=== PATIENT | female | born 1945 | race Caucasian/White ===

== ENCOUNTER 2016-07-10 06:22 | Outpatient (CLI) | payer OTHER, MEDICARE | END 2016-07-10 06:23 | disposition home or self-care (01) | DX: I48.0 Paroxysmal atrial fibrillation (principal) ==

== ENCOUNTER 2016-08-07 10:28 | Outpatient (CLI) | payer OTHER, MEDICARE | END 2016-08-07 10:29 | disposition home or self-care (01) | DX: I48.0 Paroxysmal atrial fibrillation (principal) ==

== ENCOUNTER 2016-08-07 14:08 | Outpatient (CLI) | payer OTHER, MEDICARE | END 2016-08-07 14:09 | disposition home or self-care (01) | DX: J18.9 Pneumonia, unspecified organism (principal) ==

== ENCOUNTER 2016-09-10 06:31 | Outpatient (CLI) | payer OTHER, MEDICARE | END 2016-09-10 06:32 | disposition home or self-care (01) | DX: E78.5 Hyperlipidemia, unspecified (principal); J44.9 Chronic obstructive pulmonary disease, unspecified ==

== ENCOUNTER 2016-09-19 09:38 | Outpatient (CLI) | payer OTHER, MEDICARE | END 2016-09-19 09:39 | disposition home or self-care (01) | DX: I48.0 Paroxysmal atrial fibrillation (principal) ==

== ENCOUNTER 2016-10-31 06:20 | Outpatient (CLI) | payer OTHER, MEDICARE | END 2016-10-31 06:21 | disposition home or self-care (01) | LOC: LAB 06:20 | PROVIDERS: ATTEND Pharmacist | DX: I48.0 Paroxysmal atrial fibrillation (principal) | CPT/HCPCS: 85610 ==

== ENCOUNTER 2016-11-14 08:00 | Outpatient (CLI) | payer OTHER, MEDICARE | END 2016-11-14 08:01 | disposition home or self-care (01) | LOC: LAB 08:00 | PROVIDERS: ATTEND Pharmacist | DX: I48.0 Paroxysmal atrial fibrillation (principal) | CPT/HCPCS: 85610 ==

== ENCOUNTER 2016-12-12 08:03 | Outpatient (CLI) | payer OTHER, MEDICARE | END 2016-12-12 08:04 | disposition home or self-care (01) | LOC: LAB 08:03 | PROVIDERS: ATTEND Pharmacist | DX: I48.0 Paroxysmal atrial fibrillation (principal) | CPT/HCPCS: 85610 ==

== ENCOUNTER 2017-01-14 09:20 | Outpatient (CLI) | payer OTHER, MEDICARE | END 2017-01-14 09:21 | disposition home or self-care (01) | LOC: LAB 09:20 | PROVIDERS: ATTEND Pharmacist | DX: I48.0 Paroxysmal atrial fibrillation (principal) | CPT/HCPCS: 85610 ==

== ENCOUNTER 2017-02-11 15:57 | Outpatient (CLI) | payer OTHER, MEDICARE | END 2017-02-11 15:58 | disposition home or self-care (01) | LOC: LAB 15:57 | PROVIDERS: ATTEND Pharmacist | DX: I48.0 Paroxysmal atrial fibrillation (principal) | CPT/HCPCS: 85610 ==

== ENCOUNTER 2017-03-11 07:09 | Outpatient (CLI) | payer OTHER, MEDICARE | END 2017-03-11 07:10 | disposition home or self-care (01) | LOC: LAB 07:09 | PROVIDERS: ATTEND Pharmacist | DX: I48.0 Paroxysmal atrial fibrillation (principal) | CPT/HCPCS: 36415; 85610 ==

== ENCOUNTER 2017-04-08 07:50 | Outpatient (CLI) | payer OTHER, MEDICARE | END 2017-04-08 07:51 | disposition home or self-care (01) | LOC: LAB 07:50 | PROVIDERS: ATTEND Pharmacist | DX: I48.0 Paroxysmal atrial fibrillation (principal) | CPT/HCPCS: 85610 ==

== ENCOUNTER 2017-05-06 06:21 | Outpatient (CLI) | payer OTHER, MEDICARE | END 2017-05-06 06:22 | disposition home or self-care (01) | LOC: LAB 06:21 | PROVIDERS: ATTEND Pharmacist | DX: I48.0 Paroxysmal atrial fibrillation (principal) | CPT/HCPCS: 85610 ==

== ENCOUNTER 2017-06-05 07:15 | Outpatient (CLI) | payer OTHER, MEDICARE | END 2017-06-05 07:16 | disposition home or self-care (01) | LOC: LAB 07:15 | PROVIDERS: ATTEND Pharmacist | DX: I48.0 Paroxysmal atrial fibrillation (principal) | CPT/HCPCS: 85610 ==

== ENCOUNTER 2017-06-26 06:32 | Outpatient (CLI) | payer OTHER, MEDICARE | END 2017-06-26 06:33 | disposition home or self-care (01) | LOC: LAB 06:32 | PROVIDERS: ATTEND Pharmacist | DX: I48.0 Paroxysmal atrial fibrillation (principal) | CPT/HCPCS: 85610 ==

== ENCOUNTER 2017-07-24 06:48 | Outpatient (CLI) | payer OTHER, MEDICARE | END 2017-07-24 06:49 | disposition home or self-care (01) | LOC: LAB 06:48 | PROVIDERS: ATTEND Pharmacist | DX: I48.0 Paroxysmal atrial fibrillation (principal) | CPT/HCPCS: 36415; 85610 ==

== ENCOUNTER 2017-08-21 06:27 | Outpatient (CLI) | payer OTHER, MEDICARE | END 2017-08-21 06:28 | disposition home or self-care (01) | LOC: LAB 06:27 | PROVIDERS: ATTEND Pharmacist | DX: I48.0 Paroxysmal atrial fibrillation (principal) | CPT/HCPCS: 85610 ==

== ENCOUNTER 2017-09-08 06:28 | Outpatient (CLI) | payer OTHER, MEDICARE ==
[2017-09-08 06:56] LABS: BASOPHILS # (AUTO) 0.1 10^3/uL (0.0-0.1); BASOPHILS % (AUTO) 1.1 %; EOSINOPHILS # (AUTO) 0.3 10^3/uL (0.0-0.7); EOSINOPHILS % (AUTO) 6.7 %; HGB - HEMOGLOBIN 12.1 g/dL (12.0-16.0); LYMPHOCYTES # (AUTO) 1.2 10^3/uL (1.5-3.5); LYMPHOCYTES % (AUTO) 23.5 %; MEAN CORPUSCULAR HEMOGLOBIN 26.3 pg (27.0-31.0); MEAN CORPUSCULAR HGB CONC 31.5 g/dL (32.0-36.0); MEAN CORPUSCULAR VOLUME 83.3 fL (81.0-99.0); MEAN PLATELET VOLUME 8.4 fL (7.9-10.8); MONOCYTES # (AUTO) 0.5 10^3/uL (0.0-1.0); MONOCYTES % (AUTO) 10.6 %; NEUTROPHILS # (AUTO) 2.9 10^3/uL (1.5-6.6); NEUTROPHILS % (AUTO) 58.1 %; PLT - PLATELET COUNT 204 10^3/uL (130-450); WHITE BLOOD COUNT 4.9 x10^3/uL (4.8-10.8)
[2017-09-08 07:09] LABS: ALBUMIN 4.5 g/dL (3.2-5.5); ALBUMIN/GLOBULIN RATIO 1.7 (1.0-2.2); ALKALINE PHOSPHATASE 70 IU/L (42-121); ALT ALANINE AMINOTRANSFERASE 19 IU/L (10-60); AST ASPARTATE AMINOTRANSFERASE 21 IU/L (10-42); BILIRUBIN,TOTAL 0.7 mg/dL (0.2-1.0); BUN - BLOOD UREA NITROGEN 16 mg/dL (6-20); CALCIUM 8.9 mg/dL (8.5-10.3); CARBON DIOXIDE - CO2 24 mmol/L (21-32); CHLORIDE 105 mmol/L (101-111); CHOL/HDL RATIO 2.8 (<4.4); CHOLESTEROL 127 mg/dL; CREATININE 0.6 mg/dL (0.4-1.0); GFR - MDRD 98 (>89); GLUCOSE 101 mg/dL (70-100); HDL CHOLESTEROL 46 mg/dL; LDL CHOLESTEROL,CALCULATED 64 mg/dL; LDL/HDL RATIO 1.4 (<4.4); SODIUM 138 mmol/L (135-145); TOTAL PROTEIN 7.1 g/dL (6.7-8.2); VLDL CHOLESTEROL 17 mg/dL
== END 2017-09-08 06:29 | disposition home or self-care (01) ==
LOC: LAB 06:28
PROVIDERS: ATTEND Physician Assistant Medical
DX: E78.5 Hyperlipidemia, unspecified (principal); J44.9 Chronic obstructive pulmonary disease, unspecified
CPT/HCPCS: 36415; 80053; 80061; 83721; 85025

== ENCOUNTER 2017-09-18 08:00 | Outpatient (CLI) | payer OTHER, MEDICARE | END 2017-09-18 08:01 | disposition home or self-care (01) | LOC: LAB 08:00 | PROVIDERS: ATTEND Pharmacist | DX: I48.0 Paroxysmal atrial fibrillation (principal) | CPT/HCPCS: 36415; 85610 ==

== ENCOUNTER 2017-10-16 06:28 | Outpatient (CLI) | payer OTHER, MEDICARE | END 2017-10-16 06:29 | disposition home or self-care (01) | LOC: LAB 06:28 | PROVIDERS: ATTEND Pharmacist | DX: I48.0 Paroxysmal atrial fibrillation (principal) | CPT/HCPCS: 85610 ==

== ENCOUNTER 2017-11-13 06:23 | Outpatient (CLI) | payer OTHER, MEDICARE | END 2017-11-13 06:24 | disposition home or self-care (01) | LOC: LAB 06:23 | PROVIDERS: ATTEND Pharmacist | DX: I48.0 Paroxysmal atrial fibrillation (principal) | CPT/HCPCS: 85610 ==

== ENCOUNTER 2018-02-04 06:14 | Outpatient (CLI) | payer OTHER, MEDICARE | END 2018-02-04 06:15 | disposition home or self-care (01) | LOC: LAB 06:14 | PROVIDERS: ATTEND Pharmacist | DX: I48.0 Paroxysmal atrial fibrillation (principal) | CPT/HCPCS: 85610 ==

== ENCOUNTER 2018-03-04 08:00 | Outpatient (CLI) | payer OTHER, MEDICARE | END 2018-03-04 08:01 | disposition home or self-care (01) | LOC: LAB 08:00 | PROVIDERS: ATTEND Pharmacist | DX: I48.0 Paroxysmal atrial fibrillation (principal) | CPT/HCPCS: 85610 ==

== ENCOUNTER 2018-04-13 10:32 | Outpatient (CLI) | payer MEDICARE, OTHER ==
--- NOTE | 2018-04-13 15:08 | DEXA Report ---
Reason: OSTEOPOROSIS NOS Procedure Date: 04/13/2018 Accession Number: [id number] / [id number] Procedure: DEX - Dexa Spine and/or Hip CPT Code: FULL RESULT: EXAM: Dexa Spine and/or Hip DATE: 04/13/2018 10:57 AM CLINICAL HISTORY: OSTEOPOROSIS NOS TECHNIQUE: Dual energy x-ray absorptiometry (DXA) was performed on a [employer] System. Regions measured are the AP Spine, femoral neck, and if needed forearm. COMPARISON: 12/18/2015. In accordance with the International Society for Clinical Densitometry (ISCD) guidelines, data from previous exams may be reanalyzed using current recommendations and techniques. This is done to allow a more accurate basis for comparison with the current study. FINDINGS: The data for the lumbar spine is as follows: BMD (g/cm/cm) T-SCORE Z-SCORE REGION L1 0.942 -1.6 -0.2 L2 0.958 -2.0 -0.6 L3 0.938 -2.2 -0.8 L4 0.810 -3.2 -1.9 TOTAL 0.906 -2.3 -0.9 NOTE: All evaluable vertebrae are used for classification The data for the hip is as follows: BMD (g/cm/cm) T-SCORE Z-SCORE REGION Neck 0.651 -2.8 -1.1 TOTAL 0.654 -2.8 -1.4 NOTE: The femoral neck or total proximal femur, whichever is lowest, is used for classification. DXA RESULTS SUMMARY: Spine SCAN DATE AGE BMD CHANGE VS CHANGE VS PREVIOUS PREVIOUS % 04[age]13/2018 [age] 0.906 -0.029* -3.1* 12/18/2015 [age] 0[age]935 * Denotes significant change at the 95% confidence level. Denotes dissimilar scan types or analysis methods. DXA RESULTS SUMMARY: Hip SCAN DATE [age]GE BMD CHANGE VS CHANGE VS PREVIOUS PREVIOUS % 04[birth year]13/2018 [age] 0.654 -0.007 -1.1 12/18/2015 [age] 0.661 * Denotes significant change at the 95% confidence level. Denotes dissimilar scan types or analysis methods. IMPRESSION: THE WHO CLASSIFICATION BASED ON THE INTERNATIONAL REFERENCE STANDARD IS OSTEOPOROSIS. THE FRACTURE RISK IS HIGH. RECOMMENDATION: Patients with diagnosis of osteoporosis or osteopenia should have regular bone mineral density assessment. For those eligible for Medicare, routine testing is allowed once every 2 years. Testing frequency can be increased for patients who have rapidly progressing disease or for those who are receiving medical therapy to restore bone mass. COMMENT: World Health Organization (WHO) definitions for osteoporosis and osteopenia: NORMAL BMD: T-score at -1.0 or higher, fracture risk is low OSTEOPENIA BMD: T-score between -1.0 and -2.5, fracture risk is increased. OSTEOPOROSIS BMD: T-score at -2.5 or lower, fracture risk is high. National Osteoporosis Foundation recommends: 1. Obtain adequate dietary calcium (at least 1200 mg per day) and vitamin D (400-800 international units per day). 2. Participate, as appropriate, in regular weightbearing and muscle-strengthening exercise. 3. Avoid tobacco use and reduce alcohol and caffeine intake. 4. For more detailed information see the website at www.NOF.org.
== END 2018-04-13 10:33 | disposition home or self-care (01) ==
LOC: DI 10:32
PROVIDERS: ATTEND Physician Assistant Medical
DX: M81.0 Age-related osteoporosis without current pathological fracture (principal)
CPT/HCPCS: 77080

== ENCOUNTER 2018-04-15 07:11 | Outpatient (CLI) | payer MEDICARE, OTHER ==
[2018-04-15 07:51] LABS: INR 2.9 (0.8-1.2); PT - PROTHROMBIN TIME 32.6 secs (9.9-12.6)
== END 2018-04-15 07:12 | disposition home or self-care (01) ==
LOC: LAB 07:11
PROVIDERS: ATTEND Pharmacist
DX: I48.0 Paroxysmal atrial fibrillation (principal)
CPT/HCPCS: 36415; 85610

== ENCOUNTER 2018-04-16 08:02 | Outpatient (CLI) | payer MEDICARE, OTHER ==
--- NOTE | 2018-04-17 09:06 | Mammography Report ---
Reason: ANNUAL SCREENING Procedure Date: 04/16/2018 Accession Number: [id number] / [id number] Procedure: DANITZA - Screening Mammo w/Umair CPT Code: FULL RESULT: EXAM: Screening Mammo w/Umair DATE: 04/16/2018 8:52 AM CLINICAL HISTORY: Routine screening. No personal or family history of breast cancer. TECHNIQUE: Bilateral CC and MLO views were obtained. COMPARISON: 12/18/2015 through 06/01/2012 FINDINGS: The breasts demonstrate scattered fibroglandular densities bilaterally. There are multiple stable similar-appearing round and oval benign-appearing masses bilaterally. There are no suspicious masses, calcifications or areas of distortion. IMPRESSION: Benign findings RECOMMENDATION: Routine annual screening unless otherwise clinically indicated. BI-RADS CATEGORY 2: Benign findings STANDARD QUALIFYING STATEMENTS: 1. This examination was not reviewed with the aid of Computer-Aided Detection (CAD). 2. A negative or benign imaging report should not preclude biopsy if clinically suspicious findings are present. 3. Dense breasts may obscure an underlying neoplasm. 4. This examination was reviewed with the aid of 3D breast imaging (tomosynthesis).
== END 2018-04-16 08:03 | disposition home or self-care (01) ==
LOC: DI 08:02
DX: Z12.31 Encounter for screening mammogram for malignant neoplasm of breast (principal)
CPT/HCPCS: 77063; 77067

== ENCOUNTER 2018-04-28 12:44 | Outpatient (CLI) | payer MEDICARE, OTHER ==
--- NOTE | 2018-04-28 15:28 | XRAY Report ---
Reason: OSTEOPOROSIS Procedure Date: 04/28/2018 Accession Number: [id number] / [id number] Procedure: XR - Thoracic Spine 2 View CPT Code: FULL RESULT: EXAM: THORACIC SPINE RADIOGRAPHY EXAM DATE: 04/28/2018 01:12 PM. CLINICAL HISTORY: Osteoporosis. COMPARISON: CHEST 2 VIEW PA/LAT 08/07/2016 2:11 PM. TECHNIQUE: 2 views. FINDINGS: Alignment: Kyphosis without overt single level vertebral body height loss. Mild levoconvex thoracic scoliosis followed by dextroconvex compensatory lumbar scoliosis which is partially imaged. Bones: No fractures or bone lesions. Disks: Normal. Disk heights are maintained. Soft Tissues: Note is made of a pacemaker in unchanged position. The visualized lungs and cardiomediastinal silhouette are normal with the exception of aortic arch calcifications. IMPRESSION: Kyphosis and scoliosis, likely degenerative in nature. RADIA
--- NOTE | 2018-04-28 15:28 | XRAY Report ---
Reason: OSTEOPOROSIS Procedure Date: 04/28/2018 Accession Number: [id number] / [id number] Procedure: XR - Lumbar Spine 2 View CPT Code: FULL RESULT: EXAM: LUMBOSACRAL SPINE RADIOGRAPHY EXAM DATE: 04/28/2018 01:12 PM. CLINICAL HISTORY: Osteoporosis. COMPARISONS: None. TECHNIQUE: 3 views. FINDINGS: Alignment: Mild levoconvex scoliosis. Bones: Five [id number] lumbar vertebral bodies are present. No fractures or bone lesions. Disks: Normal. Disk heights are maintained. Facets: Mild to moderate facet arthropathy of the lower lumbar spine. Sacroiliac Joints: Unremarkable. Soft Tissues: Right upper quadrant cholecystectomy clips. Advanced aortic atherosclerosis. IMPRESSION: Lower lumbar spine facet arthropathy. RADIA
== END 2018-04-28 12:45 | disposition home or self-care (01) ==
LOC: DI 12:44
PROVIDERS: ATTEND Physician Assistant Medical
DX: M47.9 Spondylosis, unspecified (principal); M40.204 Unspecified kyphosis, thoracic region; M41.9 Scoliosis, unspecified
CPT/HCPCS: 72070; 72100

== ENCOUNTER 2018-05-27 07:28 | Outpatient (CLI) | payer MEDICARE, OTHER | END 2018-05-27 07:29 | disposition home or self-care (01) | LOC: LAB 07:28 | PROVIDERS: ATTEND Pharmacist | DX: I48.0 Paroxysmal atrial fibrillation (principal) | CPT/HCPCS: 85610 ==

== ENCOUNTER 2018-07-08 07:16 | Outpatient (CLI) | payer MEDICARE, OTHER | END 2018-07-08 07:17 | disposition home or self-care (01) | LOC: LAB 07:16 | PROVIDERS: ATTEND Pharmacist | DX: I48.0 Paroxysmal atrial fibrillation (principal) | CPT/HCPCS: 85610 ==

== ENCOUNTER 2018-08-05 06:40 | Outpatient (CLI) | payer MEDICARE, OTHER | END 2018-08-05 06:41 | disposition home or self-care (01) | LOC: LAB 06:40 | PROVIDERS: ATTEND Pharmacist | DX: I48.0 Paroxysmal atrial fibrillation (principal) | CPT/HCPCS: 85610 ==

== ENCOUNTER 2018-09-02 06:43 | Outpatient (CLI) | payer MEDICARE, OTHER | END 2018-09-02 06:44 | disposition home or self-care (01) | LOC: LAB 06:43 | PROVIDERS: ATTEND Pharmacist | DX: I48.0 Paroxysmal atrial fibrillation (principal) | CPT/HCPCS: 85610 ==

== ENCOUNTER 2018-09-16 06:51 | Outpatient (CLI) | payer MEDICARE, OTHER | END 2018-09-16 06:52 | disposition home or self-care (01) | LOC: LAB 06:51 | PROVIDERS: ATTEND Pharmacist | DX: I48.0 Paroxysmal atrial fibrillation (principal) | CPT/HCPCS: 85610 ==

== ENCOUNTER 2018-10-02 07:26 | Outpatient (CLI) | payer MEDICARE, OTHER ==
[2018-10-02 07:43] LABS: BASOPHILS # (AUTO) 0.1 10^3/uL (0.0-0.1); BASOPHILS % (AUTO) 1.2 %; EOSINOPHILS # (AUTO) 0.3 10^3/uL (0.0-0.7); EOSINOPHILS % (AUTO) 5.1 %; HGB - HEMOGLOBIN 11.9 g/dL (12.0-16.0); LYMPHOCYTES # (AUTO) 1.5 10^3/uL (1.5-3.5); LYMPHOCYTES % (AUTO) 27.4 %; MEAN CORPUSCULAR HEMOGLOBIN 26.7 pg (27.0-31.0); MEAN CORPUSCULAR HGB CONC 31.7 g/dL (32.0-36.0); MEAN CORPUSCULAR VOLUME 84.3 fL (81.0-99.0); MEAN PLATELET VOLUME 8.6 fL (7.9-10.8); MONOCYTES # (AUTO) 0.6 10^3/uL (0.0-1.0); MONOCYTES % (AUTO) 10.9 %; NEUTROPHILS % (AUTO) 55.4 %; PLT - PLATELET COUNT 191 10^3/uL (130-450); RED BLOOD COUNT 4.46 10^6/uL (4.20-5.40); RED CELL DISTRIBUTION WIDTH 13.9 % (12.0-15.0); WHITE BLOOD COUNT 5.4 x10^3/uL (4.8-10.8)
[2018-10-02 08:04] LABS: ALBUMIN 4.2 g/dL (3.2-5.5); ALBUMIN/GLOBULIN RATIO 1.6 (1.0-2.2); ALKALINE PHOSPHATASE 64 IU/L (42-121); ALT ALANINE AMINOTRANSFERASE 16 IU/L (10-60); AST ASPARTATE AMINOTRANSFERASE 21 IU/L (10-42); BUN - BLOOD UREA NITROGEN 19 mg/dL (6-20); CALCIUM 9.2 mg/dL (8.5-10.3); CARBON DIOXIDE - CO2 24 mmol/L (21-32); CHLORIDE 105 mmol/L (101-111); CHOL/HDL RATIO 3.1 (<4.4); CHOLESTEROL 129 mg/dL; CREATININE 0.6 mg/dL (0.4-1.0); GFR - MDRD 98 (>89); GLUCOSE 104 mg/dL (70-100); HDL CHOLESTEROL 42 mg/dL; LDL CHOLESTEROL,CALCULATED 65 mg/dL; LDL/HDL RATIO 1.5 (<4.4); SODIUM 140 mmol/L (135-145); TOTAL PROTEIN 6.9 g/dL (6.7-8.2); VLDL CHOLESTEROL 22 mg/dL
== END 2018-10-02 07:27 | disposition home or self-care (01) ==
LOC: LAB 07:26
PROVIDERS: ATTEND Physician Assistant Medical
DX: E78.5 Hyperlipidemia, unspecified (principal); I48.91 Unspecified atrial fibrillation; J30.2 Other seasonal allergic rhinitis
CPT/HCPCS: 36415; 80053; 80061; 83721; 84443; 85025

== ENCOUNTER 2018-10-14 07:02 | Outpatient (CLI) | payer MEDICARE, OTHER | END 2018-10-14 07:03 | disposition home or self-care (01) | LOC: LAB 07:02 | PROVIDERS: ATTEND Pharmacist | DX: I48.0 Paroxysmal atrial fibrillation (principal) | CPT/HCPCS: 85610 ==

== ENCOUNTER 2019-01-06 07:00 | Outpatient (CLI) | payer MEDICARE, OTHER | END 2019-01-06 07:01 | disposition home or self-care (01) | LOC: LAB 07:00 | PROVIDERS: ATTEND Pharmacist | DX: I48.0 Paroxysmal atrial fibrillation (principal) | CPT/HCPCS: 85610 ==

== ENCOUNTER 2019-01-16 08:58 | Emergency (ER) | payer MEDICARE, OTHER ==
[2019-01-16 09:11] VITALS: BP 180/76
[2019-01-16] MEDS ORDERED: DEXAMETHASONE 10 MG/ML VIAL PO STA (11:11)
[2019-01-16] MEDS ORDERED: CHERRY SYRUP 10 ML UDC PO ONE (11:11)
--- NOTE | 2019-01-16 11:29 | ED Physician Documentation ---
History of Present Illness - Stated complaint Stated Complaint: BUG BITE - Chief complaint Chief Complaint: General - History obtained from History obtained from: Patient - History of Present Illness Timing: Today - Additonal information Additional information: 73 y/o female is stung by a bee and has local reaction over the left volar forearm. She is not known allergic to bees and has only been stung one time in her life. Review of Systems Constitutional: denies: Fever Eyes: denies: Decreased vision Ears: denies: Ear pain Nose: denies: Congestion Throat: denies: Sore throat Respiratory: denies: Cough GI: denies: Nausea, Vomiting : denies: Dysuria Skin: reports: Bite / sting Musculoskeletal: reports: Extremity pain. 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: None : None HEENT: Chronic vision loss Psych: None Musculoskeletal: None Derm: None - Past Surgical History Past Surgical History: Yes General: Cholecystectomy Ortho: Carpal Tunnel surgery /INSPECTOR STRUCTURAL BONDING: Hysterectomy Cardiovascular: Pacemaker HEENT: Cataracts, Tonsil/Adenoidectomy - Present Medications Home Medications: Ambulatory Orders Medication Instructions Recorded Confirmed Losartan [Cozaar] 50 mg PO BID 01/29/13 06/04/16 Simvastatin [Zocor] 20 mg PO QPM 01/29/13 06/04/16 Albuterol Sulf [Ventolin Hfa 2 puffs INH Q4H PRN 06/04/16 06/04/16 Inhaler] Budesonide [Pulmicort Flexhaler] 2 puffs INH BID 06/04/16 06/04/16 Calcium Carbonate/Vitamin D3 1 tab PO DAILY 06/04/16 06/04/16 [Calcium 600-Vit D3 400 Tablet] Cetirizine [ZyrTEC] 10 mg PO DAILY 06/04/16 06/04/16 Fluticasone [Flonase] 1 spray MACARIO BID 06/04/16 06/04/16 Ipratropium/Albuterol [Duoneb] 3 ml INH Q4H PRN 06/04/16 06/04/16 Metoprolol Tartrate 50 mg PO BID 06/04/16 06/04/16 Warfarin [Coumadin] 0.5 mg PO 06/04/16 06/04/16 Warfarin [Coumadin] 1 mg PO 06/04/16 06/04/16 Tolterodine [Detrol LA] 2 mg PO ONCE 01/16/19 01/16/19 amLODIPine [Norvasc] 5 mg PO ONCE 01/16/19 01/16/19 - Allergies Allergies/Adverse Reactions: Allergies Allergy/AdvReac Type Severity Reaction Status Date / Time lidocaine Allergy Severe Dizziness Verified 01/16/19 09:08 - Social History Does the pt smoke?: No Smoking Status: Never smoker Does the pt drink ETOH?: No Does the pt have substance abuse?: No - Immunizations Immunizations are current?: Yes - POLST Patient has POLST: No PD ED PE NORMAL - Vitals Vital signs reviewed: Yes (hypertensive ) - General General: Alert and oriented X 3, No acute distress, Well developed/nourished - HEENT HEENT: Atraumatic, PERRL, EOMI - Respiratory Respiratory: No respiratory distress - Derm Derm: Normal color, Warm and dry - Extremities Extremities: No deformity, No edema, Other (over the volar surface of the left forearm there is an area of erythema and tenderness distal n/v is intact. There is minimal swelling and no lymphangitic streaking. ) - Neuro Neuro: Alert and oriented X 3, dental prosthetist 2-12 intact, No motor deficit, No sensory deficit, Normal speech Eye Opening: Spontaneous Motor: Obeys Commands Verbal: Oriented GCS Score: 15 - Psych Psych: Normal mood, Normal affect Results - Vitals Vitals: Vital Signs - 24 hr 01/16/19 09:05 Temperature 36.2 C L Heart Rate 80 Respiratory 18 Rate Blood Pressure 180/76 H O2 Saturation 96 Oxygen O2 Source Room air - Labs Labs: Laboratory Tests 01/16/19 11:40 Whole Blood INR 3.9 H PD MEDICAL DECISION MAKING - ED course Complexity details: considered differential, d/w patient ED course: 73 y/o female with a local reaction to a bee sting. She is administered decadron 4mg PO and we have encouraged benadryl po in follow up. Departure - Departure Disposition: 01 Home, Self Care Clinical Impression: Local reaction to bee sting Qualifiers: Encounter type: initial encounter Injury intent: accidental or unintentional Qualified Code(s): T63.441A - Toxic effect of venom of bees, accidental (unintentional), initial encounter Condition: Stable Instructions: ED Bite Sting Insect Local Allergic React Follow-Up: Manisha Edward PA-C [Primary Care Provider] - Discharge Date/Time: 01/16/19 12:35
== END 2019-01-16 12:35 | disposition home or self-care (01) ==
LOC: ED 08:58
DX: T63.441A Toxic effect of venom of bees, accidental (unintentional), initial encounter (principal); X58.XXXA Exposure to other specified factors, initial encounter; I10 Essential (primary) hypertension; Z79.01 Long term (current) use of anticoagulants
CPT/HCPCS: 85610; 99282; 99283; A9270

== ENCOUNTER 2019-01-20 07:14 | Outpatient (CLI) | payer MEDICARE, OTHER | END 2019-01-20 07:15 | disposition home or self-care (01) | LOC: LAB 07:14 | PROVIDERS: ATTEND Pharmacist | DX: I48.0 Paroxysmal atrial fibrillation (principal) | CPT/HCPCS: 85610 ==

== ENCOUNTER 2019-02-10 06:47 | Outpatient (CLI) | payer MEDICARE, OTHER | END 2019-02-10 06:48 | disposition home or self-care (01) | LOC: LAB 06:47 | PROVIDERS: ATTEND Pharmacist | DX: I48.0 Paroxysmal atrial fibrillation (principal) | CPT/HCPCS: 85610 ==

== ENCOUNTER 2019-03-03 06:53 | Outpatient (CLI) | payer MEDICARE, OTHER | END 2019-03-03 06:54 | disposition home or self-care (01) | LOC: LAB 06:53 | PROVIDERS: ATTEND Pharmacist | DX: I48.0 Paroxysmal atrial fibrillation (principal) | CPT/HCPCS: 85610 ==

== ENCOUNTER 2019-03-19 16:35 | Emergency (ER) | payer MEDICARE, OTHER ==
[2019-03-19] MEDS ORDERED: METOPROLOL TARTRATE 50 MG TABLET PO STA (17:30)
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
[2019-03-19 18:37] LABS: BASOPHILS # (AUTO) 0.1 10^3/uL (0.0-0.1); BASOPHILS % (AUTO) 0.6 %; EOSINOPHILS # (AUTO) 0.3 10^3/uL (0.0-0.7); HGB - HEMOGLOBIN 12.3 g/dL (12.0-16.0); LYMPHOCYTES # (AUTO) 1.4 10^3/uL (1.5-3.5); LYMPHOCYTES % (AUTO) 16.8 %; MEAN CORPUSCULAR HEMOGLOBIN 27.5 pg (27.0-31.0); MEAN CORPUSCULAR HGB CONC 31.3 g/dL (32.0-36.0); MEAN CORPUSCULAR VOLUME 87.7 fL (81.0-99.0); MEAN PLATELET VOLUME 9.8 fL (7.9-10.8); MONOCYTES # (AUTO) 0.6 10^3/uL (0.0-1.0); MONOCYTES % (AUTO) 6.7 %; NEUTROPHILS # (AUTO) 6.1 10^3/uL (1.5-6.6); NEUTROPHILS % (AUTO) 72.5 %; PLT - PLATELET COUNT 212 10^3/uL (130-450); RED BLOOD COUNT 4.48 10^6/uL (4.20-5.40); RED CELL DISTRIBUTION WIDTH 13.2 % (12.0-15.0); WHITE BLOOD COUNT 8.4 x10^3/uL (4.8-10.8)
[2019-03-19] MEDS ORDERED: diltiaZEM INJ 5 MG/ML VIAL IVP STA (18:38)
[2019-03-19 18:46] LABS: CALCIUM 9.4 mg/dL (8.5-10.3); CREATININE 0.7 mg/dL (0.4-1.0)
[2019-03-19 19:45] VITALS: BP 131/91
== END 2019-03-19 19:53 | disposition home or self-care (01) ==
LOC: ED 16:35
DX: T63.441A Toxic effect of venom of bees, accidental (unintentional), initial encounter (principal); X58.XXXA Exposure to other specified factors, initial encounter; I48.91 Unspecified atrial fibrillation; I10 Essential (primary) hypertension; Z79.01 Long term (current) use of anticoagulants
CPT/HCPCS: 36415; 80048; 85025; 99283; A9270; 93005

== ENCOUNTER 2019-03-31 06:49 | Outpatient (CLI) | payer MEDICARE, OTHER | END 2019-03-31 06:50 | disposition home or self-care (01) | LOC: LAB 06:49 | PROVIDERS: ATTEND Pharmacist | DX: I48.0 Paroxysmal atrial fibrillation (principal) | CPT/HCPCS: 85610 ==

== ENCOUNTER 2019-04-05 15:21 | Emergency (ER) | payer MEDICARE, OTHER ==
--- NOTE | 2019-04-05 15:49 | ED Physician Documentation ---
History of Present Illness - Stated complaint Stated Complaint: SOA, RT SHOULDER PX - Chief complaint Chief Complaint: Cardiac - Additonal information Additional information: This is a 73-year-old female with a history of Atrial fibrillation on warfarin, pacemaker for Bradycardia/sinus pauses, who presents with some shortness of breath and left shoulder pain. Patient states that she began developing some discomfort in her left shoulder which is tender to palpation earlier in the day, and then she developed a dry cough as well as Shortness of breath. She states that when she walks around the house she has been feeling winded. She denies any fever, her cough is been completely nonproductive. No swelling in her legs. No history of WI. No history of blood clots, no leg swelling. 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 : None HEENT: Chronic vision loss Psych: None Musculoskeletal: None Derm: None - Past Surgical History Past Surgical History: Yes General: Cholecystectomy Ortho: Carpal Tunnel surgery /SALES CORRESPONDENT: Hysterectomy Cardiovascular: Pacemaker HEENT: Cataracts, Tonsil/Adenoidectomy - Present Medications Home Medications: Ambulatory Orders Medication Instructions Recorded Confirmed Losartan [Cozaar] 100 mg PO BID 01/29/13 04/05/19 Simvastatin [Zocor] 20 mg PO QPM 01/29/13 04/05/19 Albuterol Sulf [Ventolin Hfa 2 puffs INH Q4H PRN 06/04/16 04/05/19 Inhaler] Budesonide [Pulmicort Flexhaler] 2 puffs INH BID 06/04/16 04/05/19 Cetirizine [ZyrTEC] 10 mg PO DAILY 06/04/16 04/05/19 Fluticasone [Flonase] 1 spray MACARIO BID 06/04/16 04/05/19 Ipratropium/Albuterol [Duoneb] 3 ml INH Q4H PRN 06/04/16 04/05/19 Metoprolol Tartrate 50 mg PO BID 06/04/16 04/05/19 Warfarin [Coumadin] 0.5 mg PO DAILY 06/04/16 04/05/19 Warfarin [Coumadin] 1 mg PO DAILY 06/04/16 04/05/19 Tolterodine [Detrol LA] 4 mg PO ONCE 01/16/19 04/05/19 amLODIPine [Norvasc] 5 mg PO ONCE 01/16/19 04/05/19 - Allergies Allergies/Adverse Reactions: Allergies Allergy/AdvReac Type Severity Reaction Status Date / Time lidocaine Allergy Severe Dizziness Verified 01/16/19 09:08 - Social History Does the pt smoke?: No Smoking Status: Never smoker Does the pt drink ETOH?: No Does the pt have substance abuse?: No - Immunizations Immunizations are current?: Yes - POLST Patient has POLST: No PD ED PE NORMAL - Vitals Vital signs reviewed: Yes - General General: Alert and oriented X 3, No acute distress - HEENT HEENT: PERRL - Neck Neck: Supple, no meningeal sign - Cardiac Cardiac: No murmur, Other (Intermittently paced on the monitor. Irregularly irregular rhythm, regular rate.) - Respiratory Respiratory: Other (Fine crackles diffusely, worse at the bases) - Abdomen Abdomen: Soft, Non tender, Non distended - Derm Derm: Warm and dry - Extremities Extremities: No deformity - Neuro Neuro: Alert and oriented X 3 - Psych Psych: Normal mood, Normal affect Results - Vitals Vitals: Oxygen O2 Source Nasal cannula - EKG (time done) 18:01 Other comments: Other comments (Rate 78, rhythm sinus, there is a nonspecific intraventricular conduction delay. No ST segment elevation. There is slight lateral precordial ST depression, no change from prior.) 15:40 Other comments: Other comments (Rate 82, rhythm sinus, there is a left bundle branch block, with slight lateral ST depression, no ST segment elevation. No change from prior EKG.) - Labs Labs: Laboratory Tests 04/05/19 04/05/19 04/05/19 15:54 15:54 15:54 WBC 7.1 RBC 4.36 Hgb 11.9 L Hct 39.0 MCV 89.4 MCH 27.3 MCHC 30.5 L RDW 13.2 Plt Count 198 MPV 10.8 Neut # (Auto) 5.1 Lymph # (Auto) 1.4 L [place] # (Auto) 0.4 Eos # (Auto) 0.1 Baso # (Auto) 0.1 Absolute Nucleated RBC 0.00 Nucleated RBC % 0.0 PT INR APTT Sodium 142 Potassium 3.8 Chloride 106 Carbon Dioxide 24 Anion Gap 12.0 BUN 12 Creatinine 0.7 Estimated GFR (MDRD) 82 L Glucose 112 H Calcium 9.5 Total Bilirubin 0.8 AST 20 ALT 19 Alkaline Phosphatase 60 Troponin I High Sens 35.6 H* B-Natriuretic Peptide Total Protein 7.1 Albumin 4.6 Globulin 2.5 Albumin/Globulin Ratio 1.8 Lipase 25 04/05/19 04/05/19 04/05/19 15:54 15:54 17:39 WBC RBC Hgb Hct MCV MCH MCHC RDW Plt Count MPV Neut # (Auto) Lymph # (Auto) [place] # (Auto) Eos # (Auto) Baso # (Auto) Absolute Nucleated RBC Nucleated RBC % PT 24.3 H INR 2.2 H APTT 45.5 H Sodium Potassium Chloride Carbon Dioxide Anion Gap BUN Creatinine Estimated GFR (MDRD) Glucose Calcium Total Bilirubin AST ALT Alkaline Phosphatase Troponin I High Sens 83.0 H* B-Natriuretic Peptide 278 H Total Protein Albumin Globulin Albumin/Globulin Ratio Lipase - Rads (name of study) CXR Radiology: Other (Radiology read: Stable left pacemaker, chronic lung disease with no acute abnormalities. Hyperinflated lungs with interstitial prominence in the bases. On my review it does appear to be some mild vascular prominence potentially suggestive of a early volume overload.) PD MEDICAL DECISION MAKING - ED course Complexity details: considered differential (ACS, WI, pneumonia, pneumothorax, heart failure, muscular skeletal pain, pulmonary embolism.) ED course: On initial examination patient is nontoxic, she has slightly increased work of breathing on my exam. She has mild and expiratory wheezes. EKG shows a left bundle branch block pattern with some slight lateral ST depressions, no significant change from prior. Patient was given a DuoNeb treatment, with questionable improvement. Chest x-ray is read as being stable, my review is suggestive of some mild vascular prominence/early congestive changes. Labs are notable for Troponin Of 35.6, mild anemia, no leukocytosis. Her INR was within therapeutic range at 2.2. PE less likely given that patient is on warfarin. Troponin is uptrending on serial exam to ~80, given her constellation of symptoms I am concerned for ACS. She is given 324 mg of aspirin, and started heparin drip. On reexamination patient is feeling improved, she states that her shortness of breath is almost resolved And her shoulder pain is mild. It is somewhat unclear if her shoulder pain manifestation of angina, she does have reducible tenderness in the trapezius. She was given nitroglycerin and had a brief subsequent episode of hypotension that spontaneously resolved. I spoke to Dr. Joanne Sousa at [facility], who accepted the patient for transfer. Patient's resident physician in radiology Dr. Neumann is in [place], and she would like to be transferred there. At this time she is hemodynamically stable for transfer and was transferred via ALS Departure - Departure Disposition: 02 Transfer Acute Care Hosp Clinical Impression: Elevated troponin, Shortness of breath Condition: Stable Discharge Date/Time: 04/05/19 21:20
[2019-04-05 15:58] LABS: BASOPHILS # (AUTO) 0.1 10^3/uL (0.0-0.1); BASOPHILS % (AUTO) 0.7 %; EOSINOPHILS # (AUTO) 0.1 10^3/uL (0.0-0.7); EOSINOPHILS % (AUTO) 1.6 %; HGB - HEMOGLOBIN 11.9 g/dL (12.0-16.0); LYMPHOCYTES # (AUTO) 1.4 10^3/uL (1.5-3.5); LYMPHOCYTES % (AUTO) 19.3 %; MEAN CORPUSCULAR HEMOGLOBIN 27.3 pg (27.0-31.0); MEAN CORPUSCULAR HGB CONC 30.5 g/dL (32.0-36.0); MEAN CORPUSCULAR VOLUME 89.4 fL (81.0-99.0); MEAN PLATELET VOLUME 10.8 fL (7.9-10.8); MONOCYTES # (AUTO) 0.4 10^3/uL (0.0-1.0); MONOCYTES % (AUTO) 5.9 %; NEUTROPHILS # (AUTO) 5.1 10^3/uL (1.5-6.6); NEUTROPHILS % (AUTO) 72.2 %; PLT - PLATELET COUNT 198 10^3/uL (130-450); RED BLOOD COUNT 4.36 10^6/uL (4.20-5.40); RED CELL DISTRIBUTION WIDTH 13.2 % (12.0-15.0); WHITE BLOOD COUNT 7.1 x10^3/uL (4.8-10.8)
[2019-04-05 16:11] LABS: ALBUMIN 4.6 g/dL (3.2-5.5); ALBUMIN/GLOBULIN RATIO 1.8 (1.0-2.2); BILIRUBIN,TOTAL 0.8 mg/dL (0.2-1.0); CALCIUM 9.5 mg/dL (8.5-10.3); CREATININE 0.7 mg/dL (0.4-1.0); TOTAL PROTEIN 7.1 g/dL (6.7-8.2)
--- NOTE | 2019-04-05 16:37 | XRAY Report ---
Reason: chest pain Procedure Date: 04/05/2019 Accession Number: [id number] / [id number] Procedure: XR - Chest 2 View X-Ray CPT Code: 04477 FULL RESULT: EXAM: CHEST RADIOGRAPHY EXAM DATE: 04/05/2019 04:13 PM. CLINICAL HISTORY: Chest pain. Lightheaded. Light sensitivity. Fell and hit head in shower Friday. COMPARISON: THORACIC SPINE 2 VIEW 04/28/2018 12:57 PM. TECHNIQUE: 2 views. FINDINGS: Lungs/Pleura: Hyperinflated lungs with interstitial prominence in the bases. No focal opacities evident. No pleural effusion. No pneumothorax. Mediastinum: Normal heart size for technique. Heavily calcified aortic arch. Prominent cardiophrenic fat pads. Other: Stable dual lead left pacemaker. No fractures identified. IMPRESSION: Chronic lung disease. No acute abnormalities. RADIA
[2019-04-05] MEDS ORDERED: ASPIRIN CHEW 81 MG TABLET PO STA (17:16)
[2019-04-05] MEDS ORDERED: IPRATROPIUM/ALBUTEROL 3 ML NEB INH STA (17:37)
[2019-04-05] MEDS ORDERED: NITROGLYCERIN SL 0.4 MG TABLET SL STA (18:33)
[2019-04-05] MEDS ORDERED: HEPARIN 25000UNITS/500ML (D5W) 25,000 UNIT/500 ML BAG IV STA (18:58)
[2019-04-05 19:12] LABS: INR 2.2 (0.8-1.2); PT - PROTHROMBIN TIME 24.3 secs (9.9-12.6)
[2019-04-05 19:19] LABS: PARTIAL THROMBOPLASTIN TIME 45.5 secs (24.9-33.3)
[2019-04-05 20:55] VITALS: BP 114/61
== END 2019-04-05 21:20 | disposition short-term general hospital (02) ==
LOC: ED 15:21
DX: R74.8 Abnormal levels of other serum enzymes (principal); I48.92 Unspecified atrial flutter; Z79.01 Long term (current) use of anticoagulants; I44.7 Left bundle-branch block, unspecified; I10 Essential (primary) hypertension; J44.9 Chronic obstructive pulmonary disease, unspecified; M25.512 Pain in left shoulder; I95.9 Hypotension, unspecified; D64.9 Anemia, unspecified; Z95.0 Presence of cardiac pacemaker
CPT/HCPCS: 36415; 71046; 80053; 83690; 83880; 84484; 85025; 85610; 85730; 93005; 94640; 96374; 99284; 99285; A9270

== ENCOUNTER 2019-04-05 21:17 | Outpatient (CLI) | payer MEDICARE, OTHER | END 2019-04-05 21:18 | disposition short-term general hospital (02) | LOC: EMS 21:17 | PROVIDERS: ATTEND Surgery | DX: R06.02 Shortness of breath (principal); M25.512 Pain in left shoulder; R07.89 Other chest pain | CPT/HCPCS: A0425; A0427 ==

== ENCOUNTER 2019-05-08 06:45 | Outpatient (CLI) | payer MEDICARE, OTHER ==
[2019-05-08 09:15] LABS: BASOPHILS % (AUTO) 0.4 %; EOSINOPHILS # (AUTO) 0.2 10^3/uL (0.0-0.7); EOSINOPHILS % (AUTO) 2.4 %; HGB - HEMOGLOBIN 7.2 g/dL (12.0-16.0); LYMPHOCYTES # (AUTO) 1.6 10^3/uL (1.5-3.5); LYMPHOCYTES % (AUTO) 19.4 %; MEAN CORPUSCULAR HGB CONC 31.7 g/dL (32.0-36.0); MEAN CORPUSCULAR VOLUME 94.6 fL (81.0-99.0); MEAN PLATELET VOLUME 10.2 fL (7.9-10.8); MONOCYTES % (AUTO) 12.1 %; NEUTROPHILS # (AUTO) 5.4 10^3/uL (1.5-6.6); PLT - PLATELET COUNT 335 10^3/uL (130-450); RED CELL DISTRIBUTION WIDTH 15.7 % (12.0-15.0); WHITE BLOOD COUNT 8.5 x10^3/uL (4.8-10.8)
[2019-05-08 10:04] LABS: CALCIUM 8.4 mg/dL (8.5-10.3); CREATININE 0.7 mg/dL (0.4-1.0)
== END 2019-05-08 23:59 | disposition home or self-care (01) ==
LOC: LAB.R 06:45
PROVIDERS: ATTEND Family Medicine
DX: I11.0 Hypertensive heart disease with heart failure (principal); I50.9 Heart failure, unspecified; J44.9 Chronic obstructive pulmonary disease, unspecified
CPT/HCPCS: 80048; 83735; 85025

== ENCOUNTER 2019-05-10 07:00 | Outpatient (CLI) | payer MEDICARE, OTHER ==
[2019-05-10 17:58] LABS: HGB - HEMOGLOBIN 10.7 g/dL (12.0-16.0)
== END 2019-05-10 23:59 | disposition home or self-care (01) ==
LOC: LAB.R 07:00
DX: I48.0 Paroxysmal atrial fibrillation (principal); J44.9 Chronic obstructive pulmonary disease, unspecified; D64.9 Anemia, unspecified; Z95.1 Presence of aortocoronary bypass graft
CPT/HCPCS: 85014; 85018

== ENCOUNTER 2019-05-18 08:00 | Outpatient (CLI) | payer MEDICARE, OTHER ==
[2019-05-18 19:46] LABS: BASOPHILS # (AUTO) 0.1 10^3/uL (0.0-0.1); BASOPHILS % (AUTO) 0.7 %; EOSINOPHILS # (AUTO) 0.4 10^3/uL (0.0-0.7); EOSINOPHILS % (AUTO) 4.1 %; HGB - HEMOGLOBIN 11.1 g/dL (12.0-16.0); LYMPHOCYTES # (AUTO) 1.7 10^3/uL (1.5-3.5); LYMPHOCYTES % (AUTO) 18.9 %; MEAN CORPUSCULAR HEMOGLOBIN 26.2 pg (27.0-31.0); MEAN CORPUSCULAR HGB CONC 29.6 g/dL (32.0-36.0); MEAN CORPUSCULAR VOLUME 88.7 fL (81.0-99.0); MEAN PLATELET VOLUME 10.4 fL (7.9-10.8); MONOCYTES % (AUTO) 10.5 %; NEUTROPHILS # (AUTO) 5.9 10^3/uL (1.5-6.6); NEUTROPHILS % (AUTO) 65.4 %; PLT - PLATELET COUNT 295 10^3/uL (130-450); RED BLOOD COUNT 4.23 10^6/uL (4.20-5.40); RED CELL DISTRIBUTION WIDTH 15.2 % (12.0-15.0); WHITE BLOOD COUNT 9.1 x10^3/uL (4.8-10.8)
[2019-05-18 19:56] LABS: CALCIUM 8.8 mg/dL (8.5-10.3)
== END 2019-05-18 23:59 | disposition home or self-care (01) ==
LOC: LAB.R 08:00
PROVIDERS: ATTEND Family Medicine
DX: I11.9 Hypertensive heart disease without heart failure (principal); D64.9 Anemia, unspecified
CPT/HCPCS: 80048; 82728; 85025

== ENCOUNTER 2019-05-28 13:04 | Outpatient (CLI) | payer MEDICARE, OTHER | END 2019-05-28 13:05 | disposition home or self-care (01) | LOC: LAB 13:04 | PROVIDERS: ATTEND Physician Assistant Medical | DX: I48.0 Paroxysmal atrial fibrillation (principal) | CPT/HCPCS: 85610 ==

== ENCOUNTER 2019-06-14 09:42 | Outpatient (CLI) | payer MEDICARE, OTHER | END 2019-06-14 09:43 | disposition home or self-care (01) | LOC: LAB 09:42 | PROVIDERS: ATTEND Physician Assistant Medical | DX: I48.0 Paroxysmal atrial fibrillation (principal) | CPT/HCPCS: 85610 ==

== ENCOUNTER 2019-06-16 08:19 | Outpatient (CLI) | payer MEDICARE, OTHER | END 2019-06-16 08:20 | disposition home or self-care (01) | LOC: LAB 08:19 | PROVIDERS: ATTEND Physician Assistant Medical | DX: I48.0 Paroxysmal atrial fibrillation (principal) | CPT/HCPCS: 85610 ==

== ENCOUNTER 2019-06-18 07:18 | Outpatient (CLI) | payer MEDICARE, OTHER | END 2019-06-18 07:19 | disposition home or self-care (01) | LOC: LAB 07:18 | PROVIDERS: ATTEND Physician Assistant Medical | DX: I48.0 Paroxysmal atrial fibrillation (principal) | CPT/HCPCS: 85610 ==

== ENCOUNTER 2019-06-24 08:27 | Outpatient (CLI) | payer MEDICARE, OTHER | END 2019-06-24 08:28 | disposition home or self-care (01) | LOC: LAB 08:27 | PROVIDERS: ATTEND Physician Assistant Medical | DX: I48.0 Paroxysmal atrial fibrillation (principal) | CPT/HCPCS: 85610 ==

== ENCOUNTER 2019-07-01 08:12 | Outpatient (CLI) | payer MEDICARE, OTHER | END 2019-07-01 08:13 | disposition home or self-care (01) | LOC: LAB 08:12 | PROVIDERS: ATTEND Physician Assistant Medical | DX: I48.0 Paroxysmal atrial fibrillation (principal) | CPT/HCPCS: 85610 ==

== ENCOUNTER 2019-07-05 07:11 | Outpatient (CLI) | payer MEDICARE, OTHER | END 2019-07-05 07:12 | disposition home or self-care (01) | LOC: LAB 07:11 | PROVIDERS: ATTEND Physician Assistant Medical | DX: I48.0 Paroxysmal atrial fibrillation (principal) | CPT/HCPCS: 85610 ==

== ENCOUNTER 2019-07-08 07:43 | Outpatient (CLI) | payer MEDICARE, OTHER | END 2019-07-08 07:44 | disposition home or self-care (01) | LOC: LAB 07:43 | PROVIDERS: ATTEND Physician Assistant Medical | DX: I48.0 Paroxysmal atrial fibrillation (principal) | CPT/HCPCS: 85610 ==

== ENCOUNTER 2019-07-15 07:23 | Outpatient (CLI) | payer MEDICARE, OTHER ==
[2019-07-15 08:06] LABS: CALCIUM 9.2 mg/dL (8.5-10.3); CREATININE 0.7 mg/dL (0.4-1.0)
== END 2019-07-15 07:24 | disposition home or self-care (01) ==
LOC: LAB 07:23
PROVIDERS: ATTEND Internal Medicine Cardiovascular Disease
DX: I25.5 Ischemic cardiomyopathy (principal); I48.0 Paroxysmal atrial fibrillation
CPT/HCPCS: 36415; 80048; 85610

== ENCOUNTER 2019-07-21 07:00 | Outpatient (CLI) | payer MEDICARE, OTHER ==
[2019-07-21 07:54] LABS: BASOPHILS # (AUTO) 0.1 10^3/uL (0.0-0.1); BASOPHILS % (AUTO) 1.1 %; EOSINOPHILS # (AUTO) 0.2 10^3/uL (0.0-0.7); EOSINOPHILS % (AUTO) 2.6 %; HGB - HEMOGLOBIN 11.8 g/dL (12.0-16.0); LYMPHOCYTES # (AUTO) 1.5 10^3/uL (1.5-3.5); LYMPHOCYTES % (AUTO) 26.1 %; MEAN CORPUSCULAR HGB CONC 29.8 g/dL (32.0-36.0); MEAN CORPUSCULAR VOLUME 87.4 fL (81.0-99.0); MEAN PLATELET VOLUME 10.6 fL (7.9-10.8); MONOCYTES # (AUTO) 0.5 10^3/uL (0.0-1.0); MONOCYTES % (AUTO) 8.5 %; NEUTROPHILS # (AUTO) 3.5 10^3/uL (1.5-6.6); NEUTROPHILS % (AUTO) 61.5 %; PLT - PLATELET COUNT 224 10^3/uL (130-450); RED BLOOD COUNT 4.53 10^6/uL (4.20-5.40); RED CELL DISTRIBUTION WIDTH 14.9 % (12.0-15.0); WHITE BLOOD COUNT 5.7 x10^3/uL (4.8-10.8)
[2019-07-21 08:18] LABS: ALBUMIN 4.4 g/dL (3.2-5.5); ALBUMIN/GLOBULIN RATIO 1.6 (1.0-2.2); ALKALINE PHOSPHATASE 67 IU/L (42-121); ALT ALANINE AMINOTRANSFERASE 15 IU/L (10-60); AST ASPARTATE AMINOTRANSFERASE 21 IU/L (10-42); BILIRUBIN,TOTAL 0.8 mg/dL (0.2-1.0); BUN - BLOOD UREA NITROGEN 17 mg/dL (6-20); CALCIUM 9.2 mg/dL (8.5-10.3); CARBON DIOXIDE - CO2 25 mmol/L (21-32); CHLORIDE 99 mmol/L (101-111); CHOL/HDL RATIO 2.5 (<4.4); CHOLESTEROL 137 mg/dL; CREATININE 0.7 mg/dL (0.4-1.0); GFR - MDRD 82 (>89); GLUCOSE 86 mg/dL (70-100); HDL CHOLESTEROL 54 mg/dL; LDL CHOLESTEROL,CALCULATED 64 mg/dL; LDL/HDL RATIO 1.2 (<4.4); SODIUM 137 mmol/L (135-145); TOTAL PROTEIN 7.1 g/dL (6.7-8.2); VLDL CHOLESTEROL 19 mg/dL
[2019-07-21 09:27] LABS: FREE T4 (FREE THYROXINE) 0.83 ng/dL (0.58-1.64)
== END 2019-07-21 07:01 | disposition home or self-care (01) ==
LOC: LAB 07:00
PROVIDERS: ATTEND Physician Assistant Medical
DX: E78.5 Hyperlipidemia, unspecified (principal); I48.91 Unspecified atrial fibrillation; J44.9 Chronic obstructive pulmonary disease, unspecified
CPT/HCPCS: 36415; 80053; 80061; 83721; 84439; 84443; 85025

== ENCOUNTER 2019-07-21 07:46 | Outpatient (CLI) | payer MEDICARE, OTHER ==
--- NOTE | 2019-07-28 08:50 | Mammography Report ---
Reason: ROUTINE SCREENING Procedure Date: 07/21/2019 Accession Number: [id number] / [id number] Procedure: DANITZA - Screening Mammo w/Umair CPT Code: Final Report FULL RESULT: EXAM: Screening Mammo w/Umair DATE: 07/21/2019 8:26 AM CLINICAL HISTORY: Screening encounter. TECHNIQUE: (B) - Bilateral CC and MLO views were obtained. COMPARISON: 04/16/2018 through 07/13/2013. PARENCHYMAL PATTERN: (A) - The breast(s) demonstrate(s) scattered fibroglandular densities. FINDINGS: There are no suspicious masses, calcifications, or areas of distortion. IMPRESSION: Negative examination. BI-RADS category 1. RECOMMENDATION: (ANNUAL) - Recommend routine annual screening mammography. BI-RADS CATEGORY: (1) - Negative. STANDARD QUALIFYING STATEMENTS: 1. This examination was not reviewed with the aid of Computer-Aided Detection (CAD). 2. A negative or benign imaging report should not preclude biopsy if clinically suspicious findings are present. 3. Dense breasts may obscure an underlying neoplasm. 4. This examination was reviewed with the aid of 3D breast imaging (tomosynthesis).
== END 2019-07-21 07:47 | disposition home or self-care (01) ==
LOC: DI 07:46
DX: Z12.31 Encounter for screening mammogram for malignant neoplasm of breast (principal)
CPT/HCPCS: 77063; 77067

== ENCOUNTER 2019-07-29 06:48 | Outpatient (CLI) | payer MEDICARE, OTHER | END 2019-07-29 06:49 | disposition home or self-care (01) | LOC: LAB 06:48 | PROVIDERS: ATTEND Physician Assistant Medical | DX: I48.0 Paroxysmal atrial fibrillation (principal) | CPT/HCPCS: 85610 ==

== ENCOUNTER 2019-08-05 06:52 | Outpatient (CLI) | payer MEDICARE, OTHER ==
[2019-08-05 07:26] LABS: CALCIUM 9.3 mg/dL (8.5-10.3); CREATININE 0.8 mg/dL (0.4-1.0)
[2019-08-05 08:19] LABS: FREE T4 (FREE THYROXINE) 0.79 ng/dL (0.58-1.64)
== END 2019-08-05 06:53 | disposition home or self-care (01) ==
LOC: LAB 06:52
PROVIDERS: ATTEND Physician Assistant Medical
DX: I10 Essential (primary) hypertension (principal); I48.91 Unspecified atrial fibrillation; I48.0 Paroxysmal atrial fibrillation
CPT/HCPCS: 36415; 80048; 84439; 84443; 85610

== ENCOUNTER 2019-08-19 09:41 | Outpatient (CLI) | payer MEDICARE, OTHER | END 2019-08-19 09:42 | disposition home or self-care (01) | LOC: LAB 09:41 | PROVIDERS: ATTEND Physician Assistant Medical | DX: I48.0 Paroxysmal atrial fibrillation (principal) | CPT/HCPCS: 85610 ==

== ENCOUNTER 2019-09-02 07:48 | Outpatient (CLI) | payer MEDICARE, OTHER | END 2019-09-02 07:49 | disposition home or self-care (01) | LOC: LAB 07:48 | PROVIDERS: ATTEND Physician Assistant Medical | DX: I48.0 Paroxysmal atrial fibrillation (principal) | CPT/HCPCS: 85610 ==

== ENCOUNTER 2019-09-16 06:52 | Outpatient (CLI) | payer MEDICARE, OTHER | END 2019-09-16 06:53 | disposition home or self-care (01) | LOC: LAB 06:52 | PROVIDERS: ATTEND Physician Assistant Medical | DX: I48.0 Paroxysmal atrial fibrillation (principal) | CPT/HCPCS: 85610 ==

== ENCOUNTER 2019-09-30 07:12 | Outpatient (CLI) | payer MEDICARE, OTHER | END 2019-09-30 07:13 | disposition home or self-care (01) | LOC: LAB 07:12 | PROVIDERS: ATTEND Physician Assistant Medical | DX: I48.0 Paroxysmal atrial fibrillation (principal) | CPT/HCPCS: 85610 ==

== ENCOUNTER 2019-10-07 06:51 | Outpatient (CLI) | payer MEDICARE, OTHER | END 2019-10-07 06:52 | disposition home or self-care (01) | LOC: LAB 06:51 | PROVIDERS: ATTEND Physician Assistant Medical | DX: E03.9 Hypothyroidism, unspecified (principal) | CPT/HCPCS: 36415; 84443 ==

== ENCOUNTER 2019-10-28 08:02 | Outpatient (CLI) | payer MEDICARE, OTHER | END 2019-10-28 08:03 | disposition home or self-care (01) | LOC: LAB 08:02 | PROVIDERS: ATTEND Physician Assistant Medical | DX: I48.0 Paroxysmal atrial fibrillation (principal) | CPT/HCPCS: 85610 ==

== ENCOUNTER 2019-11-05 07:39 | Outpatient (CLI) | payer MEDICARE, OTHER ==
[2019-11-05 08:13] LABS: CALCIUM 9.5 mg/dL (8.5-10.3); CREATININE 0.8 mg/dL (0.4-1.0)
== END 2019-11-05 07:40 | disposition home or self-care (01) ==
LOC: LAB 07:39
PROVIDERS: ATTEND Internal Medicine Cardiovascular Disease
DX: I25.5 Ischemic cardiomyopathy (principal)
CPT/HCPCS: 36415; 80048

== ENCOUNTER 2019-11-25 07:23 | Outpatient (CLI) | payer MEDICARE, OTHER | END 2019-11-25 07:24 | disposition home or self-care (01) | LOC: LAB 07:23 | PROVIDERS: ATTEND Physician Assistant Medical | DX: I48.0 Paroxysmal atrial fibrillation (principal) | CPT/HCPCS: 85610 ==

== ENCOUNTER 2019-12-22 07:27 | Outpatient (CLI) | payer MEDICARE, OTHER | END 2019-12-22 07:28 | disposition home or self-care (01) | LOC: LAB 07:27 | PROVIDERS: ATTEND Physician Assistant Medical | DX: I48.0 Paroxysmal atrial fibrillation (principal) | CPT/HCPCS: 85610 ==

== ENCOUNTER 2020-01-05 07:31 | Outpatient (CLI) | payer MEDICARE, OTHER | END 2020-01-05 07:32 | disposition home or self-care (01) | LOC: LAB 07:31 | PROVIDERS: ATTEND Physician Assistant Medical | DX: I48.0 Paroxysmal atrial fibrillation (principal) | CPT/HCPCS: 85610 ==

== ENCOUNTER 2020-01-19 07:04 | Outpatient (CLI) | payer MEDICARE, OTHER | END 2020-01-19 07:05 | disposition home or self-care (01) | LOC: LAB 07:04 | PROVIDERS: ATTEND Physician Assistant Medical | DX: I48.0 Paroxysmal atrial fibrillation (principal) | CPT/HCPCS: 85610 ==

== ENCOUNTER 2020-02-16 07:41 | Outpatient (CLI) | payer MEDICARE, OTHER | END 2020-02-16 07:42 | disposition home or self-care (01) | LOC: LAB 07:41 | PROVIDERS: ATTEND Physician Assistant Medical | DX: I48.0 Paroxysmal atrial fibrillation (principal) | CPT/HCPCS: 85610 ==

== ENCOUNTER 2020-03-15 08:28 | Outpatient (CLI) | payer MEDICARE, OTHER | END 2020-03-15 08:29 | disposition home or self-care (01) | LOC: LAB 08:28 | PROVIDERS: ATTEND Physician Assistant Medical | DX: I48.0 Paroxysmal atrial fibrillation (principal) | CPT/HCPCS: 85610 ==

== ENCOUNTER 2020-04-12 07:50 | Outpatient (CLI) | payer MEDICARE, OTHER | END 2020-04-12 07:51 | disposition home or self-care (01) | LOC: LAB 07:50 | PROVIDERS: ATTEND Physician Assistant Medical | DX: I48.0 Paroxysmal atrial fibrillation (principal) | CPT/HCPCS: 85610 ==

== ENCOUNTER 2020-05-10 06:52 | Outpatient (CLI) | payer MEDICARE, OTHER | END 2020-05-10 06:53 | disposition home or self-care (01) | LOC: LAB 06:52 | PROVIDERS: ATTEND Physician Assistant Medical | DX: I48.0 Paroxysmal atrial fibrillation (principal) | CPT/HCPCS: 85610 ==

== ENCOUNTER 2020-05-24 07:36 | Outpatient (CLI) | payer MEDICARE, OTHER | END 2020-05-24 07:37 | disposition home or self-care (01) | LOC: LAB 07:36 | PROVIDERS: ATTEND Physician Assistant Medical | DX: I48.0 Paroxysmal atrial fibrillation (principal) | CPT/HCPCS: 85610 ==

== ENCOUNTER 2020-06-05 13:12 | Outpatient (CLI) | payer MEDICARE, OTHER ==
[2020-06-05 13:50] LABS: CALCIUM 9.5 mg/dL (8.5-10.3); CREATININE 0.8 mg/dL (0.4-1.0)
== END 2020-06-05 13:13 | disposition home or self-care (01) ==
LOC: LAB 13:12
PROVIDERS: ATTEND Internal Medicine Cardiovascular Disease
DX: I25.10 Atherosclerotic heart disease of native coronary artery without angina pectoris (principal); I25.5 Ischemic cardiomyopathy
CPT/HCPCS: 36415; 80048

== ENCOUNTER 2020-06-21 07:36 | Outpatient (CLI) | payer MEDICARE, OTHER ==
--- OUTSIDE RECORDS SUMMARY | 2020-06-21 07:39 | EXTERNAL MEDICAL SUMMARY RPT | Continuity of Care Document ---
:1945 Demographics Phone Unavailable Preferred Language Marshallese Marital Status Unknown Faith Affiliation Unknown Race Unknown Ethnic Group Unknown Author Organization [place] Address [address] [place] [address] Phone Care Team Providers Name Role Phone Young Unavailable Unavailable PA-C Unavailable Unavailable Problems date description facility 2020-04-12 07:50 PAROXYSMAL ATRIAL FIBRILLATION [facility] 2020-04-12 09:00 PAROXYSMAL ATRIAL FIBRILLATION [facility] 2020-05-10 06:52 PAROXYSMAL ATRIAL FIBRILLATION [facility] 2020-05-24 07:36 PAROXYSMAL ATRIAL FIBRILLATION [facility] 2020-06-21 08:00 PAROXYSMAL ATRIAL FIBRILLATION [facility] Allergies date description facility OTHER [facility] ASPIRIN-DIPYRIDAMOLE [facility] CLARIFICATION NEEDED [facility] DIPYRIDAMOLE [facility] IODINATED CONTRAST MEDIA [facility] MEPERIDINE HCL [facility] PENICILLIN G [facility] WARFARIN [facility] lidocaine [facility] NO KNOWN ENVIRONMENTAL ALLERGIES [facility] AMLODIPINE [facility] ATORVASTATIN CALCIUM [facility] CODEINE [facility] PENICILLINS [facility] TETRACYCLINES [facility] SULFA (SULFONAMIDE ANTIBIOTICS) [facility] TETANUS VACCINES AND TOXOID [facility] VARENICLINE [facility] PROCHLORPERAZINE [facility] PROCHLORPERAZINE EDISYLATE [facility] DOXYCYCLINE [facility] TETANUS TOXOID, ADSORBED [facility] METFORMIN [facility] TOPIRAMATE [facility] lidocaine [facility] Procedures date description facility 2020-04-12 00:00:00 ANTICOAG MGMT PT WARFARIN [facility] date description facility 2020-04-12 00:00:00 [facility] date description facility 2020-05-10 00:00:00 ANTICOAG MGMT PT WARFARIN [facility] date description facility 2020-05-10 00:00:00 [facility] date description facility 2020-05-24 00:00:00 ANTICOAG MGMT PT WARFARIN [facility] date description facility 2020-05-24 00:00:00 [facility] Results Social History date description facility [id number]
== END 2020-06-21 07:37 | disposition home or self-care (01) ==
LOC: LAB 07:36
PROVIDERS: ATTEND Physician Assistant Medical
DX: I48.0 Paroxysmal atrial fibrillation (principal)
CPT/HCPCS: 85610

== ENCOUNTER 2020-07-26 08:00 | Outpatient (CLI) | payer MEDICARE, OTHER | END 2020-07-26 23:59 | disposition home or self-care (01) | LOC: LAB.WCP 08:00 | PROVIDERS: ATTEND Physician Assistant Medical | DX: Z79.01 Long term (current) use of anticoagulants (principal); I48.91 Unspecified atrial fibrillation ==

== ENCOUNTER 2020-08-02 08:00 | Outpatient (CLI) | payer MEDICARE, OTHER | END 2020-08-02 23:59 | disposition home or self-care (01) | LOC: LAB.WCP 08:00 | PROVIDERS: ATTEND Physician Assistant Medical | DX: Z79.01 Long term (current) use of anticoagulants (principal); I48.91 Unspecified atrial fibrillation ==

== ENCOUNTER 2020-08-16 08:00 | Outpatient (CLI) | payer MEDICARE, OTHER | END 2020-08-16 23:59 | disposition home or self-care (01) | LOC: LAB.WCP 08:00 | PROVIDERS: ATTEND Physician Assistant Medical | DX: I48.91 Unspecified atrial fibrillation (principal); Z79.01 Long term (current) use of anticoagulants ==

== ENCOUNTER 2020-08-17 08:00 | Outpatient (CLI) | payer MEDICARE, OTHER ==
[2020-08-17 13:54] LABS: BASOPHILS % (AUTO) 0.8 %; EOSINOPHILS # (AUTO) 0.1 10^3/uL (0.0-0.7); EOSINOPHILS % (AUTO) 2.7 %; HCT - HEMATOCRIT 41.1 % (37.0-47.0); HGB - HEMOGLOBIN 12.4 g/dL (12.0-16.0); LYMPHOCYTES # (AUTO) 1.4 10^3/uL (1.5-3.5); LYMPHOCYTES % (AUTO) 26.4 %; MEAN CORPUSCULAR HEMOGLOBIN 27.3 pg (27.0-31.0); MEAN CORPUSCULAR HGB CONC 30.2 g/dL (32.0-36.0); MEAN CORPUSCULAR VOLUME 90.3 fL (81.0-99.0); MEAN PLATELET VOLUME 10.4 fL (7.9-10.8); MONOCYTES # (AUTO) 0.6 10^3/uL (0.0-1.0); MONOCYTES % (AUTO) 11.4 %; NEUTROPHILS % (AUTO) 58.5 %; PLT - PLATELET COUNT 235 10^3/uL (130-450); RED BLOOD COUNT 4.55 10^6/uL (4.20-5.40); RED CELL DISTRIBUTION WIDTH 13.1 % (12.0-15.0); WHITE BLOOD COUNT 5.2 x10^3/uL (4.8-10.8)
[2020-08-17 14:25] LABS: THYROID STIMULATING HORMONE 0.49 uIU/mL (0.34-5.60)
[2020-08-17 14:30] LABS: ALBUMIN 4.6 g/dL (3.2-5.5); ALBUMIN/GLOBULIN RATIO 1.6 (1.0-2.2); ALKALINE PHOSPHATASE 68 IU/L (42-121); ALT ALANINE AMINOTRANSFERASE 14 IU/L (10-60); AST ASPARTATE AMINOTRANSFERASE 21 IU/L (10-42); BILIRUBIN,TOTAL 0.7 mg/dL (0.2-1.0); BUN - BLOOD UREA NITROGEN 18 mg/dL (6-20); CALCIUM 9.7 mg/dL (8.5-10.3); CARBON DIOXIDE - CO2 26 mmol/L (21-32); CHLORIDE 99 mmol/L (101-111); CHOL/HDL RATIO 2.6 (<4.4); CHOLESTEROL 143 mg/dL; CREATININE 0.7 mg/dL (0.4-1.0); GFR - MDRD 81 (>89); GLUCOSE 86 mg/dL (70-100); HDL CHOLESTEROL 54 mg/dL; LDL CHOLESTEROL,CALCULATED 75 mg/dL; LDL/HDL RATIO 1.4 (<4.4); POTASSIUM 3.9 mmol/L (3.5-5.0); SODIUM 136 mmol/L (135-145); TOTAL PROTEIN 7.4 g/dL (6.7-8.2); TRIGLYCERIDES 69 mg/dL; VLDL CHOLESTEROL 14 mg/dL
== END 2020-08-17 23:59 | disposition home or self-care (01) ==
LOC: LAB.WCP 08:00
PROVIDERS: ATTEND Physician Assistant Medical
DX: E78.5 Hyperlipidemia, unspecified (principal); E03.9 Hypothyroidism, unspecified; I10 Essential (primary) hypertension
CPT/HCPCS: 36415; 80053; 80061; 83721; 84443; 85025

== ENCOUNTER 2020-09-06 08:00 | Outpatient (CLI) | payer MEDICARE, OTHER | END 2020-09-06 23:59 | disposition home or self-care (01) | LOC: LAB.N 08:00 | PROVIDERS: ATTEND Physician Assistant Medical | DX: I48.91 Unspecified atrial fibrillation (principal); Z79.01 Long term (current) use of anticoagulants ==

== ENCOUNTER 2020-10-04 08:00 | Outpatient (CLI) | payer MEDICARE, OTHER | END 2020-10-04 23:59 | disposition home or self-care (01) | LOC: LAB.N 08:00 | PROVIDERS: ATTEND Physician Assistant Medical | DX: I48.91 Unspecified atrial fibrillation (principal); Z79.01 Long term (current) use of anticoagulants ==

== ENCOUNTER 2020-10-18 08:00 | Outpatient (CLI) | payer MEDICARE, OTHER | END 2020-10-18 23:59 | disposition home or self-care (01) | LOC: LAB.N 08:00 | PROVIDERS: ATTEND Physician Assistant Medical | DX: Z79.01 Long term (current) use of anticoagulants (principal); I48.91 Unspecified atrial fibrillation ==

== ENCOUNTER 2020-10-18 10:43 | Outpatient (CLI) | payer MEDICARE, OTHER ==
--- NOTE | 2020-10-19 14:09 | Mammography Report ---
BILATERAL DIGITAL SCREENING MAMMOGRAM 3D/2D: 10/18/2020 CLINICAL: Routine screening. Comparison is made to exams dated: 07/21/2019 mammogram, 04/16/2018 mammogram, 12/18/2015 mammogram, mammogram, and 07/13/2013 mammogram - [facility]. The tissue of both breasts is predominantly fatty. There are a stable benign focal asymmetry and calcification in the right breast. There also is a delta ign calcification in the left breast. No significant masses, calcifications, or other findings are seen in either breast. There has been no significant interval change. IMPRESSION: BENIGN There is no mammographic evidence of malignancy. A 1 year screening mammogram is recommended. This exam was interpreted at Station ID: [id number]. NOTE: For mammograms, a report in lay terms will be sent to the patient. Approximately 15% of breast malignancies will not be visualized mammographically. In the management of a palpable breast mass, a negative mammogram must not discourage biopsy of a clinically suspicious lesion. Electronically Signed By: Ted Scott acr/penrad:10/18/2020 11:44:01 ACR BI-RADS Category 2: Benign Finding(s) 3342F PARENCHYMAL PATTERN: (F) - The breast(s) demonstrate(s) diffuse fatty replacement. BI-RADS CATEGORY: (2) - 2 RECOMMENDATION: (ANNUAL) - Recommend routine annual screening mammography. [id number] 1 year screening LATERALITY: (B)
== END 2020-10-18 10:44 | disposition home or self-care (01) ==
LOC: DI 10:43
DX: Z12.31 Encounter for screening mammogram for malignant neoplasm of breast (principal)

== ENCOUNTER 2020-11-08 08:00 | Outpatient (CLI) | payer MEDICARE, OTHER | END 2020-11-08 23:59 | disposition home or self-care (01) | LOC: LAB.N 08:00 | PROVIDERS: ATTEND Physician Assistant Medical | DX: I48.91 Unspecified atrial fibrillation (principal); Z79.01 Long term (current) use of anticoagulants ==

== ENCOUNTER 2020-11-22 09:00 | Outpatient (CLI) | payer MEDICARE, OTHER | END 2020-11-22 23:59 | disposition home or self-care (01) | LOC: LAB.N 09:00 | PROVIDERS: ATTEND Physician Assistant Medical | DX: I48.91 Unspecified atrial fibrillation (principal); Z79.01 Long term (current) use of anticoagulants ==

== ENCOUNTER 2020-12-06 08:00 | Outpatient (CLI) | payer MEDICARE, OTHER | END 2020-12-06 23:59 | disposition home or self-care (01) | LOC: LAB.N 08:00 | PROVIDERS: ATTEND Physician Assistant Medical | DX: Z79.01 Long term (current) use of anticoagulants (principal); I48.91 Unspecified atrial fibrillation ==

== ENCOUNTER 2020-12-13 09:47 | Outpatient (CLI) | payer MEDICARE, OTHER ==
[2020-12-13 10:11] LABS: BASOPHILS # (AUTO) 0.1 10^3/uL (0.0-0.1); EOSINOPHILS # (AUTO) 0.1 10^3/uL (0.0-0.7); EOSINOPHILS % (AUTO) 2.5 %; HCT - HEMATOCRIT 39.7 % (37.0-47.0); HGB - HEMOGLOBIN 12.8 g/dL (12.0-16.0); LYMPHOCYTES # (AUTO) 1.2 10^3/uL (1.5-3.5); LYMPHOCYTES % (AUTO) 23.7 %; MEAN CORPUSCULAR HEMOGLOBIN 28.6 pg (27.0-31.0); MEAN CORPUSCULAR HGB CONC 32.2 g/dL (32.0-36.0); MEAN CORPUSCULAR VOLUME 88.8 fL (81.0-99.0); MEAN PLATELET VOLUME 9.4 fL (7.9-10.8); MONOCYTES # (AUTO) 0.5 10^3/uL (0.0-1.0); MONOCYTES % (AUTO) 9.6 %; NEUTROPHILS # (AUTO) 3.3 10^3/uL (1.5-6.6); NEUTROPHILS % (AUTO) 62.8 %; PLT - PLATELET COUNT 224 10^3/uL (130-450); RED BLOOD COUNT 4.47 10^6/uL (4.20-5.40); RED CELL DISTRIBUTION WIDTH 11.9 % (12.0-15.0); WHITE BLOOD COUNT 5.2 x10^3/uL (4.8-10.8)
[2020-12-13 10:24] LABS: ALBUMIN 4.5 g/dL (3.2-5.5); ALBUMIN/GLOBULIN RATIO 1.6 (1.0-2.2); BILIRUBIN,TOTAL 0.8 mg/dL (0.2-1.0); CALCIUM 9.4 mg/dL (8.5-10.3); CREATININE 0.7 mg/dL (0.4-1.0); POTASSIUM 4.2 mmol/L (3.5-5.0); TOTAL PROTEIN 7.3 g/dL (6.7-8.2)
== END 2020-12-13 09:48 | disposition home or self-care (01) ==
LOC: LAB 09:47
PROVIDERS: ATTEND Internal Medicine Cardiovascular Disease
DX: I25.5 Ischemic cardiomyopathy (principal); I25.10 Atherosclerotic heart disease of native coronary artery without angina pectoris
CPT/HCPCS: 36415; 80053; 85025

== ENCOUNTER 2020-12-27 08:00 | Outpatient (CLI) | payer MEDICARE, OTHER | END 2020-12-27 08:01 | disposition home or self-care (01) | LOC: LAB.N 08:00 | PROVIDERS: ATTEND Physician Assistant Medical | DX: I48.91 Unspecified atrial fibrillation (principal); Z79.01 Long term (current) use of anticoagulants ==

== ENCOUNTER 2021-01-10 08:00 | Outpatient (CLI) | payer MEDICARE, OTHER | END 2021-01-10 23:59 | disposition home or self-care (01) | LOC: LAB.WCP 08:00 | PROVIDERS: ATTEND Physician Assistant Medical | DX: I48.91 Unspecified atrial fibrillation (principal); Z79.01 Long term (current) use of anticoagulants ==

== ENCOUNTER 2021-02-28 08:00 | Outpatient (CLI) | payer MEDICARE, OTHER | END 2021-02-28 23:59 | disposition home or self-care (01) | LOC: LAB.N 08:00 | PROVIDERS: ATTEND Physician Assistant Medical | DX: Z79.01 Long term (current) use of anticoagulants (principal); I48.91 Unspecified atrial fibrillation ==

== ENCOUNTER 2021-03-28 08:00 | Outpatient (CLI) | payer MEDICARE, OTHER | END 2021-03-28 23:59 | disposition home or self-care (01) | LOC: LAB.N 08:00 | PROVIDERS: ATTEND Physician Assistant Medical | DX: Z79.01 Long term (current) use of anticoagulants (principal); I48.91 Unspecified atrial fibrillation ==

== ENCOUNTER 2021-04-04 08:00 | Outpatient (CLI) | payer MEDICARE, OTHER | END 2021-04-04 23:59 | disposition home or self-care (01) | LOC: LAB.N 08:00 | PROVIDERS: ATTEND Physician Assistant Medical | DX: Z79.01 Long term (current) use of anticoagulants (principal); I48.91 Unspecified atrial fibrillation ==

== ENCOUNTER 2021-04-11 08:00 | Outpatient (CLI) | payer MEDICARE, OTHER | END 2021-04-11 23:59 | disposition home or self-care (01) | LOC: LAB.WCP 08:00 | PROVIDERS: ATTEND Physician Assistant Medical | DX: I48.91 Unspecified atrial fibrillation (principal); Z79.01 Long term (current) use of anticoagulants ==

== ENCOUNTER 2021-04-25 08:00 | Outpatient (CLI) | payer MEDICARE, OTHER | END 2021-04-25 23:59 | disposition home or self-care (01) | LOC: LAB.N 08:00 | PROVIDERS: ATTEND Physician Assistant Medical | DX: I48.91 Unspecified atrial fibrillation (principal); Z79.01 Long term (current) use of anticoagulants ==

== ENCOUNTER 2021-05-09 08:00 | Outpatient (CLI) | payer MEDICARE, OTHER | END 2021-05-09 23:59 | disposition home or self-care (01) | LOC: LAB.N 08:00 | PROVIDERS: ATTEND Physician Assistant Medical | DX: I48.91 Unspecified atrial fibrillation (principal); Z79.01 Long term (current) use of anticoagulants ==

== ENCOUNTER 2021-05-18 07:11 | Outpatient (CLI) | payer MEDICARE, OTHER ==
[2021-05-18 08:07] LABS: BUN - BLOOD UREA NITROGEN 15 mg/dL (6-20); CALCIUM 9.3 mg/dL (8.5-10.3); CARBON DIOXIDE - CO2 26 mmol/L (21-32); CHLORIDE 96 mmol/L (101-111); CHOL/HDL RATIO 2.2 (<4.4); CHOLESTEROL 125 mg/dL; CREATININE 0.7 mg/dL (0.4-1.0); GFR - MDRD 81 (>89); GLUCOSE 92 mg/dL (70-100); HDL CHOLESTEROL 56 mg/dL; LDL CHOLESTEROL,CALCULATED 55 mg/dL; SODIUM 132 mmol/L (135-145); TRIGLYCERIDES 69 mg/dL; VLDL CHOLESTEROL 14 mg/dL
== END 2021-05-18 07:12 | disposition home or self-care (01) ==
LOC: LAB 07:11
PROVIDERS: ATTEND Internal Medicine Cardiovascular Disease
DX: I25.10 Atherosclerotic heart disease of native coronary artery without angina pectoris (principal); I25.5 Ischemic cardiomyopathy
CPT/HCPCS: 36415; 80048; 80061; 83721

== ENCOUNTER 2021-05-23 08:00 | Outpatient (CLI) | payer MEDICARE, OTHER | END 2021-05-23 23:59 | disposition home or self-care (01) | LOC: LAB.N 08:00 | PROVIDERS: ATTEND Physician Assistant Medical | DX: I48.91 Unspecified atrial fibrillation (principal); Z79.01 Long term (current) use of anticoagulants ==

== ENCOUNTER 2021-06-13 08:00 | Outpatient (CLI) | payer MEDICARE, OTHER | END 2021-06-13 23:59 | disposition home or self-care (01) | LOC: LAB.N 08:00 | PROVIDERS: ATTEND Physician Assistant Medical | DX: Z79.01 Long term (current) use of anticoagulants (principal); I48.91 Unspecified atrial fibrillation ==

== ENCOUNTER 2021-07-11 08:00 | Outpatient (CLI) | payer MEDICARE, OTHER | END 2021-07-11 23:59 | disposition home or self-care (01) | LOC: LAB.N 08:00 | PROVIDERS: ATTEND Physician Assistant Medical | DX: I48.91 Unspecified atrial fibrillation (principal); Z79.01 Long term (current) use of anticoagulants ==

== ENCOUNTER 2021-08-08 08:00 | Outpatient (CLI) | payer MEDICARE, OTHER | END 2021-08-08 23:59 | disposition home or self-care (01) | LOC: LAB.N 08:00 | PROVIDERS: ATTEND Physician Assistant Medical | DX: I48.91 Unspecified atrial fibrillation (principal); Z79.01 Long term (current) use of anticoagulants ==

== ENCOUNTER 2021-08-17 12:38 | Outpatient (CLI) | payer MEDICARE, OTHER ==
[2021-08-17 13:26] LABS: THYROID STIMULATING HORMONE 0.82 uIU/mL (0.34-5.60)
== END 2021-08-17 12:39 | disposition home or self-care (01) ==
LOC: LAB 12:38
PROVIDERS: ATTEND Physician Assistant Medical
DX: E03.9 Hypothyroidism, unspecified (principal)
CPT/HCPCS: 36415; 84443

== ENCOUNTER 2021-09-05 08:00 | Outpatient (CLI) | payer MEDICARE, OTHER | END 2021-09-05 23:59 | disposition home or self-care (01) | LOC: LAB.N 08:00 | PROVIDERS: ATTEND Physician Assistant Medical | DX: I48.91 Unspecified atrial fibrillation (principal); Z79.01 Long term (current) use of anticoagulants ==

== ENCOUNTER 2021-10-10 08:00 | Outpatient (CLI) | payer MEDICARE, OTHER | END 2021-10-10 08:01 | disposition home or self-care (01) | LOC: LAB.N 08:00 | PROVIDERS: ATTEND Physician Assistant Medical | DX: I48.91 Unspecified atrial fibrillation (principal); Z79.01 Long term (current) use of anticoagulants ==

== ENCOUNTER 2021-10-24 08:00 | Outpatient (CLI) | payer MEDICARE, OTHER | END 2021-10-24 23:59 | disposition home or self-care (01) | LOC: LAB.N 08:00 | PROVIDERS: ATTEND Physician Assistant Medical | DX: I48.91 Unspecified atrial fibrillation (principal); Z79.01 Long term (current) use of anticoagulants ==

== ENCOUNTER 2021-11-16 08:58 | Outpatient (CLI) | payer MEDICARE, OTHER ==
[2021-11-16 09:33] LABS: CHOL/HDL RATIO 2.4 (<4.4); CHOLESTEROL 135 mg/dL; HDL CHOLESTEROL 56 mg/dL; LDL CHOLESTEROL,CALCULATED 65 mg/dL; LDL/HDL RATIO 1.2 (<4.4); TRIGLYCERIDES 68 mg/dL; VLDL CHOLESTEROL 14 mg/dL
== END 2021-11-16 08:59 | disposition home or self-care (01) ==
LOC: LAB 08:58
PROVIDERS: ATTEND Internal Medicine Cardiovascular Disease
DX: I25.5 Ischemic cardiomyopathy (principal)
CPT/HCPCS: 36415; 80061; 83721

== ENCOUNTER → 2021-12-05 | Outpatient (CLI) | payer MEDICARE, OTHER | LOC: LAB.WCP 08:00 | PROVIDERS: ATTEND Physician Assistant Medical | DX: I48.91 Unspecified atrial fibrillation (principal); Z79.01 Long term (current) use of anticoagulants ==

== ENCOUNTER 2022-01-02 08:00 | Outpatient (CLI) | payer MEDICARE, OTHER | END 2022-01-02 08:01 | disposition home or self-care (01) | LOC: LAB.N 08:00 | PROVIDERS: ATTEND Physician Assistant Medical | DX: I48.91 Unspecified atrial fibrillation (principal); Z79.01 Long term (current) use of anticoagulants ==

== ENCOUNTER 2022-02-07 08:19 | Outpatient (CLI) | payer MEDICARE, OTHER ==
--- NOTE | 2022-02-12 11:40 | Mammography Report ---
UNILATERAL LEFT DIGITAL DIAGNOSTIC MAMMOGRAM 3D/2D WITH MAGNIFICATION: 02/07/2022 CLINICAL: Patient returns for magnification views of microcalcifications in the left breast. Comparison is made to exams dated: 01/18/22 mammogram, 10/18/2020 mammogram, 07/21/2019 mammogram, 04/16 mammogram, 12/18/2015 mammogram, and 07/29/2014 mammogram - [facility]. The left breast is almost entirely fatty (category a/<25% glandular tissue). There are grouped heterogeneous calcifications in the left breast at 8 o'clock middle depth. No other significant masses or calcifications are seen in the breast. IMPRESSION: SUSPICIOUS OF MALIGNANCY The grouped heterogeneous calcifications in the left breast are at a low suspicion for malignancy. A stereotactic biopsy is recommended. Based on the Tyrer Cuzick model (a risk assessment model) the patients lifetime risk is 0.8% and her 10 year risk is 0.0%. According to the ACR, ACS, and NCCN guidelines, an annual breast MRI exam gaeb g with mammogram is recommended if the patients lifetime risk is 20% or greater. This exam was interpreted at Station ID: [id number]. NOTE: For mammograms, a report in lay terms will be sent to the patient. Approximately 15% of breast malignancies will not be visualized mammographically. In the management of a palpable breast mass, a negative mammogram must not discourage biopsy of a clinically suspicious lesion. SUMMARY: This was discussed with the patient by the radiologist at the time of the exam. Electronically Signed By: Jazmin Haro M.D. lk/:02/12/2022 10:34:27 ACR BI-RADS Category 4a: Suspicious abnormality - low suspicion for malignancy 3344F PARENCHYMAL PATTERN: (F) - The breast(s) demonstrate(s) diffuse fatty replacement. BI-RADS CATEGORY: (4a) - Low Susp Biopsy follow-up [id number] Immediate follow-up LATERALITY: (B)
== END 2022-02-07 08:20 | disposition home or self-care (01) ==
LOC: DI 08:19
PROVIDERS: ATTEND Physician Assistant Medical
DX: R92.1 Mammographic calcification found on diagnostic imaging of breast (principal)

== ENCOUNTER 2022-04-10 08:00 | Outpatient (CLI) | payer MEDICARE, OTHER | END 2022-04-10 23:59 | disposition home or self-care (01) | LOC: LAB.WCP 08:00 | PROVIDERS: ATTEND Physician Assistant Medical | DX: Z79.01 Long term (current) use of anticoagulants (principal); I48.91 Unspecified atrial fibrillation ==

== ENCOUNTER 2022-04-26 08:00 | Outpatient (CLI) | payer MEDICARE, OTHER | END 2022-04-26 23:59 | disposition home or self-care (01) | LOC: LAB.WCP 08:00 | PROVIDERS: ATTEND Family Medicine | DX: Z79.01 Long term (current) use of anticoagulants (principal); I48.91 Unspecified atrial fibrillation ==

== ENCOUNTER 2022-05-02 15:06 | Outpatient (CLI) | payer MEDICARE, OTHER | END 2022-05-02 15:07 | disposition critical access hospital (66) | LOC: EMS 15:06 | DX: R06.02 Shortness of breath (principal); R05.9 Cough, unspecified; R50.9 Fever, unspecified | CPT/HCPCS: A0425; A0429 ==

== ENCOUNTER 2022-05-02 15:19 | Emergency (ER) | payer MEDICARE, OTHER ==
[2022-05-02] MEDS ORDERED: IPRATROPIUM/ALBUTEROL 3 ML NEB INH STA (15:23)
--- NOTE | 2022-05-02 15:24 | ED Physician Documentation ---
PD HPI DYSPNEA - Stated complaint Stated Complaint: SOA - History obtained from History obtained from: Patient, EMS - Additional information Additional information: This is a tisha 77-year-old woman with history of COPD, CHF, coronary disease status post bypass, no valvular disease who presents with 3 days of shortness of breath with mild cough with minimal production. She denies fevers. There is no chest pain. Pain is not particularly better or worse supine, standing, or sitting. She denies pedal edema or calf pain. Review of Systems Ten Systems: 10 systems reviewed and negative Constitutional: denies: Fever, Chills Throat: denies: Sore throat Cardiac: denies: Chest pain / pressure, Palpitations Respiratory: reports: Dyspnea, Cough GI: denies: Abdominal Pain PD PAST MEDICAL HISTORY - Past Medical History Cardiovascular: Hypertension, High cholesterol, Atrial fibrillation Respiratory: COPD Endocrine/Autoimmune: None GI: None [employer]ENT[employer]IVE: None : None HEENT: Chronic vision loss Psych: None Musculoskeletal: None Derm: None - Past Surgical History Past Surgical History: Yes General: Cholecystectomy Ortho: Carpal Tunnel surgery /[employer] REPRESENTATIVE: Hysterectomy Cardiovascular: Pacemaker HEENT: Cataracts, Tonsil/Adenoidectomy - Present Medications Home Medications: Ambulatory Orders Medication Instructions Recorded Confirmed Losartan [Cozaar] 100 mg PO BID 01/29/13 04/05/19 Simvastatin [Zocor] 20 mg PO QPM 01/29/13 04/05/19 Albuterol Sulf [Ventolin Hfa 2 puffs INH Q4H PRN 06/04/16 04/05/19 Inhaler] Budesonide [Pulmicort Flexhaler] 2 puffs INH BID 06/04/16 04/05/19 Cetirizine [ZyrTEC] 10 mg PO DAILY 06/04/16 04/05/19 Fluticasone [Flonase] 1 spray MACARIO BID 06/04/16 04/05/19 Ipratropium/Albuterol [Duoneb] 3 ml INH Q4H PRN 06/04/16 04/05/19 Metoprolol Tartrate 50 mg PO BID 06/04/16 04/05/19 Warfarin [Coumadin] 0.5 mg PO DAILY 06/04/16 04/05/19 Warfarin [Coumadin] 1 mg PO DAILY 06/04/16 04/05/19 Tolterodine [Detrol LA] 4 mg PO ONCE 01/16/19 04/05/19 amLODIPine [Norvasc] 5 mg PO ONCE 01/16/19 04/05/19 Doxycycline Hyclate 100 mg PO BID #14 cap 05/02/22 predniSONE [Deltasone] 20 mg PO [id number] #21 tab 05/02/22 - Allergies Allergies/Adverse Reactions: Allergies Allergy/AdvReac Type Severity Reaction Status Date / Time lidocaine Allergy Severe Dizziness Verified 05/02/22 15:28 - Social History Does the pt smoke?: No Smoking Status: Never smoker Does the pt drink ETOH?: No Does the pt have substance abuse?: No - Immunizations Immunizations are current?: Yes - POLST Patient has POLST: No PD ED PE NORMAL - Vitals Vital signs reviewed: Yes - General General: Alert and oriented X 3, No acute distress - HEENT HEENT: PERRL, EOMI - Neck Neck: Supple, no meningeal sign, No bony TTP - Cardiac Cardiac: RRR, No murmur - Respiratory Respiratory: Other (Diminished breath sounds throughout without focal findings, mild tachypnea but speaking in full sentences.) - Abdomen Abdomen: Soft, Non tender - Back Back: No CVA TTP, No spinal TTP - Derm Derm: Normal color, Warm and dry - Extremities Extremities: No edema, No calf tenderness / cord - Neuro Neuro: Alert and oriented X 3, Normal speech Results - Vitals Vitals: Vital Signs - 24 hr 05/02/22 05/02/22 05/02/22 15:23 16:04 16:30 Temperature 37.4 C Heart Rate 80 77 76 Respiratory 23 21 22 Rate Blood Pressure 104/64 97/71 108/60 O2 Saturation 94 94 93 05/02/22 16:35 Temperature Heart Rate 65 Respiratory 18 Rate Blood Pressure O2 Saturation Oxygen O2 Source Room air - EKG (time done) 1529 Rate: Rate (enter#) (79) Rhythm: NSR (w pvcs) [place]: LAD Intervals: Normal FL QRS: Low voltage Ischemia: Non specific changes. No: ST elevation c/w ischemia, ST depression - Labs Labs: Laboratory Tests 05/02/22 05/02/22 05/02/22 15:45 15:45 15:45 WBC 8.5 RBC 4.12 L Hgb 11.5 L Hct 36.4 L MCV 88.3 MCH 27.9 MCHC 31.6 L RDW 12.2 Plt Count 192 MPV 9.6 Neut # (Auto) 7.4 H Lymph # (Auto) 0.4 L [place] # (Auto) 0.7 Eos # (Auto) 0.0 Baso # (Auto) 0.0 Absolute Nucleated RBC 0.00 Nucleated RBC % 0.0 Sodium 132 L Potassium 4.0 Chloride 95 L Carbon Dioxide 23 Anion Gap 14.0 H BUN 13 Creatinine 0.7 Estimated GFR (MDRD) 81 L Glucose 94 Calcium 9.2 Total Bilirubin 1.2 H AST 22 ALT 16 Alkaline Phosphatase 66 Troponin I High Sens 3.8 B-Natriuretic Peptide Total Protein 7.1 Albumin 4.2 Globulin 2.9 Albumin/Globulin Ratio 1.4 Lipase 25 05/02/22 15:45 WBC RBC Hgb Hct MCV MCH MCHC RDW Plt Count MPV Neut # (Auto) Lymph # (Auto) [place] # (Auto) Eos # (Auto) Baso # (Auto) Absolute Nucleated RBC Nucleated RBC % Sodium Potassium Chloride Carbon Dioxide Anion Gap BUN Creatinine Estimated GFR (MDRD) Glucose Calcium Total Bilirubin AST ALT Alkaline Phosphatase Troponin I High Sens B-Natriuretic Peptide 207 H Total Protein Albumin Globulin Albumin/Globulin Ratio Lipase - Rads (name of study) Single view chest x-ray demonstrates hyperexpanded lungs without acute cardiopulmonary abnormality Radiology: EMP read contemporaneously PD MEDICAL DECISION MAKING - ED course ED course: 77-year-old woman with both CHF and COPD presents with shortness of breath in the setting of cough and by exam seeming more like COPD than CHF without evidence of fluid overload. Her work-up here demonstrates only a minimally elevated BNP, relatively clear chest x-ray. She was feeling better after DuoNeb here. Departure - Departure Disposition: 01 Home, Self Care Clinical Impression: Shortness of breath, COPD exacerbation Condition: Good Record reviewed to determine appropriate education?: Yes Instructions: COPD Dc Prescriptions: predniSONE [Deltasone] 20 mg PO [id number] #21 tab Doxycycline Hyclate 100 mg PO BID #14 cap Comments: Call your doctor to arrange a follow-up appointment, make the next available appointment. In the interim, return anytime if worse or if new symptoms develop. Often times when you start antibiotics while you are taking anticoagulants such as Coumadin or warfarin, your INR will go up. You need to have your INR checked frequently while on the antibiotics. Have it checked in 3 days, again in 6 days, and at least weekly while you are on antibiotics. Dose adjustments of your anticoagulants may be necessary.
--- NOTE | 2022-05-02 15:47 | XRAY Report ---
PROCEDURE: Chest 1 View X-Ray INDICATIONS: dyspnea TECHNIQUE: One view of the chest was acquired. COMPARISON: 04/05/2019 FINDINGS: Surgical changes and devices: A pacer device can be seen. The leads are seen in the expected positio ns. Post CABG changes are seen. Lungs and pleura: No pleural effusions or pneumothorax. Lungs are clear, yet hyperexpanded. Mediastinum: Mediastinal contours appear normal. Heart size is normal. Bones and chest wall: No suspicious bony lesions. Age-appropriate degenerative changes are seen. O verlying soft tissues appear unremarkable. IMPRESSION: Hyperexpanded lungs are seen, without an acute cardiopulmonary abnormality seen. Postoperative and degenerative changes are seen. Reviewed by: Wilmar Rizo MD on 05/02/2022 2:46 PM [facility] Approved by: Wilmar Rizo MD on 05/02/2022 2:46 PM [facility] Station ID: [id number]
[2022-05-02 15:52] LABS: BASOPHILS % (AUTO) 0.2 %; HCT - HEMATOCRIT 36.4 % (37.0-47.0); HGB - HEMOGLOBIN 11.5 g/dL (12.0-16.0); LYMPHOCYTES # (AUTO) 0.4 10^3/uL (1.5-3.5); LYMPHOCYTES % (AUTO) 4.2 %; MEAN CORPUSCULAR HEMOGLOBIN 27.9 pg (27.0-31.0); MEAN CORPUSCULAR HGB CONC 31.6 g/dL (32.0-36.0); MEAN CORPUSCULAR VOLUME 88.3 fL (81.0-99.0); MEAN PLATELET VOLUME 9.6 fL (7.9-10.8); MONOCYTES # (AUTO) 0.7 10^3/uL (0.0-1.0); MONOCYTES % (AUTO) 8.4 %; NEUTROPHILS # (AUTO) 7.4 10^3/uL (1.5-6.6); PLT - PLATELET COUNT 192 10^3/uL (130-450); RED BLOOD COUNT 4.12 10^6/uL (4.20-5.40); RED CELL DISTRIBUTION WIDTH 12.2 % (12.0-15.0); WHITE BLOOD COUNT 8.5 x10^3/uL (4.8-10.8)
[2022-05-02 16:10] LABS: ALBUMIN 4.2 g/dL (3.2-5.5); ALBUMIN/GLOBULIN RATIO 1.4 (1.0-2.2); BILIRUBIN,TOTAL 1.2 mg/dL (0.2-1.0); CALCIUM 9.2 mg/dL (8.5-10.3); CREATININE 0.7 mg/dL (0.4-1.0); TOTAL PROTEIN 7.1 g/dL (6.7-8.2)
[2022-05-02 16:50] VITALS: BP 108/60
[2022-05-02] MEDS ORDERED: predniSONE 20 MG TABLET PO STA (17:04)
[2022-05-02] MEDS ORDERED: DOXYCYCLINE 100 MG TABLET PO STA (17:05)
== END 2022-05-02 17:54 | disposition home or self-care (01) ==
LOC: EDUNIT# → ED 15:19
DX: J44.1 Chronic obstructive pulmonary disease with (acute) exacerbation (principal); Z95.0 Presence of cardiac pacemaker; Z79.01 Long term (current) use of anticoagulants
CPT/HCPCS: 36415; 71045; 80053; 83690; 83880; 84484; 85025; 93005; 94640; 99283; 99284; A9270; J7512

== ENCOUNTER 2022-05-08 15:42 | Inpatient (IN) | payer MEDICARE, OTHER ==
--- NOTE | 2022-05-08 16:19 | XRAY Report ---
PROCEDURE: Chest 1 View X-Ray INDICATIONS: Chest Pain TECHNIQUE: One view of the chest was acquired. COMPARISON: Single view the chest dated 05/02/2022 FINDINGS: Surgical changes and devices: Patient is status post median sternotomy. Dual-lead cardiac pacer is u nchanged. Lungs and pleura: Focal pulmonary radiopacities are present at the right lung base which are new whe n compared with the study dated 05/02/2022. No pleural effusion or pneumothorax. Mediastinum: Mediastinal contours appear normal. Heart size is normal. Bones and chest wall: No suspicious bony lesions. Overlying soft tissues appear unremarkable. IMPRESSION: New, subtle right basilar pulmonary radiopacities suspicious for aspiration/infection. Follow-up to r olution recommended. Reviewed by: Jazmin Haro MD on 05/08/2022 4:17 PM PST Approved by: Jazmin Haro MD on 05/08/2022 4:17 PM PST Station ID: [id number]
[2022-05-08 16:26] LABS: BASOPHILS % (AUTO) 0.1 %; HCT - HEMATOCRIT 41.6 % (37.0-47.0); HGB - HEMOGLOBIN 13.4 g/dL (12.0-16.0); LYMPHOCYTES % (AUTO) 2.8 %; MEAN CORPUSCULAR HEMOGLOBIN 27.8 pg (27.0-31.0); MEAN CORPUSCULAR HGB CONC 32.2 g/dL (32.0-36.0); MEAN CORPUSCULAR VOLUME 86.3 fL (81.0-99.0); MEAN PLATELET VOLUME 9.3 fL (7.9-10.8); MONOCYTES % (AUTO) 11.2 %; NEUTROPHILS % (AUTO) 85.1 %; PLT - PLATELET COUNT 269 10^3/uL (130-450); RED BLOOD COUNT 4.82 10^6/uL (4.20-5.40); RED CELL DISTRIBUTION WIDTH 11.7 % (12.0-15.0); WHITE BLOOD COUNT 20.8 x10^3/uL (4.8-10.8)
[2022-05-08 16:27] LABS: ABNORMAL LYMPHS % (MANUAL) 0 %
[2022-05-08 16:50] LABS: BAND NEUTROPHILS % (MANUAL) 1 %; DIFFERENTIAL COMMENT MANUAL DIFFERENTIAL; LYMPHOCYTES # (MANUAL) 0.6 10^3/uL (1.5-3.5); LYMPHOCYTES % (MANUAL) 3 %; MONOCYTES # (MANUAL) 2.7 10^3/uL (0.0-1.0); NEUTROPHILS # (MANUAL) 17.5 10^3/uL (1.5-6.6); PLATELET ESTIMATE, MANUAL NORMAL (130-450,000) (NORMAL); PLATELET MORPHOLOGY NORMAL APPEARANCE (NORMAL); RBC MORPHOLOGY (MULTIPLE) NORMAL APPEARANCE (NORMAL); WBC MORPHOLOGY (MULTIPLE) NORMAL APPEARANCE (NORMAL)
[2022-05-08] MEDS ORDERED: AZITHROMYCIN INJ 500 MG in SODIUM CHLORIDE 0.9% 250 ML IV STA (17:03)
[2022-05-08] MEDS ORDERED: cefTRIAXone 1 GM in SODIUM CHLORIDE 0.9% MINIBAG 100 ML IV STA (17:04)
--- NOTE | 2022-05-08 17:05 | ED Physician Documentation ---
History of Present Illness - Stated complaint Stated Complaint: LOW O2 - Chief complaint Chief Complaint: Resp - History obtained from History obtained from: Patient - Additonal information Additional information: This is a very pleasant 77-year-old female with history of COPD, hypertension, atrial fibrillation on Coumadin, CAD status post bypass, who is not on home oxygen and was here about a week ago with cough and URI symptoms and was diagnosed with a COPD exacerbation. She was started on doxycycline and prednisone at that time. She has been taking as prescribed. Today she went for follow-up with her PCP and was found to be hypoxic with SPO2 in the 86 to 87% range. She is sent over here in triage she initially was 87% on room air. She states she feels worse than she is felt over the last few days, feels weaker, continues to have a cough and shortness of breath. She also states that her INR was elevated several days ago and she has not been taking her Coumadin the last few days and was supposed to have her INR rechecked today. She denies any known fever, denies any chest pain, no abdominal pain, no nausea vomiting or diarrhea, no dysuria or other urinary symptoms. 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 Cardiovascular: Pacemaker HEENT: Cataracts, Tonsil/Adenoidectomy - Present Medications Home Medications: Ambulatory Orders Medication Instructions Recorded Confirmed Losartan [Cozaar] 100 mg PO BID 01/29/13 04/05/19 Simvastatin [Zocor] 20 mg PO QPM 01/29/13 04/05/19 Albuterol Sulf [Ventolin Hfa 2 puffs INH Q4H PRN 06/04/16 04/05/19 Inhaler] Budesonide [Pulmicort Flexhaler] 2 puffs INH BID 06/04/16 04/05/19 Cetirizine [ZyrTEC] 10 mg PO DAILY 06/04/16 04/05/19 Fluticasone [Flonase] 1 spray MACARIO BID 06/04/16 04/05/19 Ipratropium/Albuterol [Duoneb] 3 ml INH Q4H PRN 06/04/16 04/05/19 Metoprolol Tartrate 50 mg PO BID 06/04/16 04/05/19 Warfarin [Coumadin] 0.5 mg PO DAILY 06/04/16 04/05/19 Warfarin [Coumadin] 1 mg PO DAILY 06/04/16 04/05/19 Tolterodine [Detrol LA] 4 mg PO ONCE 01/16/19 04/05/19 amLODIPine [Norvasc] 5 mg PO ONCE 01/16/19 04/05/19 Doxycycline Hyclate 100 mg PO BID #14 cap 05/02/22 predniSONE [Deltasone] 20 mg PO [id number] #21 tab 05/02/22 - Allergies Allergies/Adverse Reactions: Allergies Allergy/AdvReac Type Severity Reaction Status Date / Time lidocaine Allergy Severe Dizziness Verified 05/08/22 15:54 - Social History Does the pt smoke?: No Smoking Status: Never smoker Does the pt drink ETOH?: No Does the pt have substance abuse?: No - Immunizations Immunizations are current?: Yes - POLST Patient has POLST: No PD ED PE NORMAL - Vitals Vital signs reviewed: Yes - General General: Alert and oriented X 3, No acute distress, Well developed/nourished - HEENT HEENT: Atraumatic, Moist mucous membranes, Pharynx benign - Neck Neck: Supple, no meningeal sign, No JVD - Cardiac Cardiac: No murmur, Other (Irregularly irregular) - Respiratory Respiratory: No respiratory distress, Other (Left-sided expiratory wheezing, no crackles.) - Abdomen Abdomen: Normal bowel sounds, Soft, Non tender, Non distended - Back Back: No CVA TTP - Derm Derm: Normal color, No rash - Extremities Extremities: No deformity, No tenderness to palpate - Neuro Neuro: Alert and oriented X 3 Eye Opening: Spontaneous Motor: Obeys Commands Verbal: Oriented GCS Score: 15 - Psych Psych: Normal mood Results - Vitals Vitals: Vital Signs - 24 hr 05/08/22 05/08/22 05/08/22 15:46 16:01 17:14 Temperature 36.9 C Heart Rate 71 75 69 Respiratory 22 23 22 Rate Blood Pressure 117/53 L O2 Saturation 87 L 92 90 L 05/08/22 05/08/22 05/08/22 17:38 18:02 19:11 Temperature Heart Rate 67 67 71 Respiratory 22 25 H 16 Rate Blood Pressure 129/67 109/63 O2 Saturation 93 94 Oxygen O2 Source Room air - Labs Labs: Laboratory Tests 05/08/22 05/08/22 05/08/22 14:10 16:10 16:10 WBC 20.8 H RBC 4.82 Hgb 13.4 Hct 41.6 MCV 86.3 MCH 27.8 MCHC 32.2 RDW 11.7 L Plt Count 269 MPV 9.3 Neut # (Auto) Not Reportable Lymph # (Auto) Not Reportable [place] # (Auto) Not Reportable Eos # (Auto) Not Reportable Baso # (Auto) Not Reportable Absolute Nucleated RBC Not Reportable Total Counted 100 Band Neuts % (Manual) 1 Abnorm Lymph % (Manual) 0 Nucleated RBC % Not Reportable Neutrophils # (Manual) 17.5 H Lymphocytes # (Manual) 0.6 L Monocytes # (Manual) 2.7 H Eosinophils # (Manual) 0.0 Basophils # (Manual) 0.0 Differential Comment MANUAL DIFFERENTIAL WBC Morphology NORMAL APPEARANCE Platelet Estimate NORMAL (130-450,000) Platelet Morphology NORMAL APPEARANCE RBC Morph Micro Appear NORMAL APPEARANCE PT 119.0 H INR > 10.0 H* Sodium Potassium Chloride Carbon Dioxide Anion Gap BUN Creatinine Estimated GFR (MDRD) Glucose Calcium Total Bilirubin AST ALT Alkaline Phosphatase Troponin I High Sens 3.5 Total Protein Albumin Globulin Albumin/Globulin Ratio Lipase Nasal Adenovirus (PCR) Nasal B. parapertussis DNA (PCR) Nasal Coronavir 229E PCR Nasal Coronavir HKU1 PCR Nasal Coronavir NL63 PCR Nasal Coronavir OC43 PCR Nasal Enterovir/Rhinovir PCR Nasal Influenza A PCR Nasal Influenza B PCR Nasal Parainfluen 1 PCR Nasal Parainfluen 2 PCR Nasal Parainfluen 3 PCR Nasal Parainfluen 4 PCR Nasal RSV (PCR) Nasal B.pertussis DNA PCR Nasal C.pneumoniae (PCR) [place] Human Metapneumo PCR Nasal M.pneumoniae (PCR) Nasal SARS-CoV-2 (PCR) 05/08/22 05/08/22 16:53 17:52 WBC RBC Hgb Hct MCV MCH MCHC RDW Plt Count MPV Neut # (Auto) Lymph # (Auto) [place] # (Auto) Eos # (Auto) Baso # (Auto) Absolute Nucleated RBC Total Counted Band Neuts % (Manual) Abnorm Lymph % (Manual) Nucleated RBC % Neutrophils # (Manual) Lymphocytes # (Manual) Monocytes # (Manual) Eosinophils # (Manual) Basophils # (Manual) Differential Comment WBC Morphology Platelet Estimate Platelet Morphology RBC Morph Micro Appear PT INR Sodium 127 L Potassium 4.2 Chloride 90 L Carbon Dioxide 26 Anion Gap 11.0 BUN 25 H Creatinine 0.6 Estimated GFR (MDRD) 97 Glucose 126 H Calcium 9.1 Total Bilirubin 0.7 AST 20 ALT 25 Alkaline Phosphatase 52 Troponin I High Sens Total Protein 6.2 L Albumin 3.5 Globulin 2.7 Albumin/Globulin Ratio 1.3 Lipase 23 Nasal Adenovirus (PCR) NOT DETECTED Nasal B. parapertussis DNA (PCR) NOT DETECTED Nasal Coronavir 229E PCR NOT DETECTED Nasal Coronavir HKU1 PCR NOT DETECTED Nasal Coronavir NL63 PCR NOT DETECTED Nasal Coronavir OC43 PCR NOT DETECTED Nasal Enterovir/Rhinovir PCR NOT DETECTED Nasal Influenza A PCR DETECTED A Nasal Influenza B PCR NOT DETECTED Nasal Parainfluen 1 PCR NOT DETECTED Nasal Parainfluen 2 PCR NOT DETECTED Nasal Parainfluen 3 PCR NOT DETECTED Nasal Parainfluen 4 PCR NOT DETECTED Nasal RSV (PCR) NOT DETECTED Nasal B.pertussis DNA PCR NOT DETECTED Nasal C.pneumoniae (PCR) NOT DETECTED [place] Human Metapneumo PCR NOT DETECTED Nasal M.pneumoniae (PCR) NOT DETECTED Nasal SARS-CoV-2 (PCR) NOT DETECTED PD MEDICAL DECISION MAKING - ED course Complexity details: reviewed old records, reviewed results, re-evaluated patient, considered differential, d/w patient ED course: 77-year-old female who presents with shortness of breath, weakness and hypoxia from the primary care clinic. She was treated recently for COPD exacerbation and is currently on doxycycline and prednisone. On arrival here, patient is hypoxic with SPO2 of 87% and has left-sided expiratory wheezes. She otherwise appears well. She was given a DuoNeb with improvement in her symptoms But remains borderline SPO2 in the 90% range. A lab work-up was obtained and her CBC is significant for elevated white blood cell count at 20,000 though this may be related to her recent steroid use, her CMP is significant for a sodium of 127 which also may be related to her prednisone use. A chest x-ray today shows a new infiltrate that was not present and her last x-ray a week ago. Her INR is greater than 10 but she has no bleeding on physical exam. I discussed with patient these findings and recommended considering admission to the hospital for treatment of hypoxia and likely community-acquired pneumonia that seems to be getting worse despite being on doxycycline at home. Patient agreeable to admission, states she feels too weak to go home. I discussed with the hospitalist personal health coach telemedicine call and he has kindly agreed to admit the patient. I did give her 5 mg of p.o. vitamin K for her elevated INR and we will recheck this in the morning, she was also started on azithromycin and ceftriaxone for pneumonia and given a DuoNeb with improvement in her symptoms. Departure - Departure Disposition: ED Place in Observation Clinical Impression: Hyponatremia, Elevated INR Community acquired pneumonia Qualifiers: Laterality: unspecified laterality Qualified Code(s): J18.9 - Pneumonia, unspecified organism
[2022-05-08] MEDS ORDERED: IPRATROPIUM/ALBUTEROL 3 ML NEB INH STA (17:06)
[2022-05-08 17:08] LABS: ALBUMIN 3.5 g/dL (3.2-5.5); ALBUMIN/GLOBULIN RATIO 1.3 (1.0-2.2); BILIRUBIN,TOTAL 0.7 mg/dL (0.2-1.0); CALCIUM 9.1 mg/dL (8.5-10.3); CREATININE 0.6 mg/dL (0.4-1.0); POTASSIUM 4.2 mmol/L (3.5-5.0); TOTAL PROTEIN 6.2 g/dL (6.7-8.2)
[2022-05-08 18:19] LABS: INR > 10.0 (0.8-1.2)
[2022-05-08] MEDS ORDERED: CHERRY SYRUP 10 ML UDC PO ONE (18:21)
[2022-05-08] MEDS ORDERED: PHYTONADIONE 10 MG/ML AMP PO ONE (18:21)
[2022-05-08] MEDS ORDERED: SODIUM CHLORIDE FLUSH 0.9% 10 ML SYRINGE IVP PRN ×2 (19:29→20:01)
[2022-05-08 19:42] LABS: B. PARAPERTUSSIS- RESP PCR PAN NOT DETECTED; B. PERTUSSIS- RESP PCR PANEL NOT DETECTED; C. PNEUMONIAE- RESP PCR PANEL NOT DETECTED; CORONAVIRUS 229E-RESP PCR NOT DETECTED; CORONAVIRUS HKU1-RESP PCR NOT DETECTED; CORONAVIRUS NL63-RESP PCR NOT DETECTED; CORONAVIRUS OC43-RESP PCR NOT DETECTED; HUMAN METAPNEUMOVIRUS NOT DETECTED; INFLUENZA A NO SUB- RESP PCR DETECTED; INFLUENZA B - RESP PCR PANEL NOT DETECTED; M. PNEUMONIAE- RESP PCR PANEL NOT DETECTED; PARAINFLUENZA VIRUS 1 NOT DETECTED; PARAINFLUENZA VIRUS 2 NOT DETECTED; PARAINFLUENZA VIRUS 3 NOT DETECTED; PARAINFLUENZA VIRUS 4 NOT DETECTED; RHINOVIRUS/ENTEROVIRUS NOT DETECTED; RSV- RESP PCR PANEL NOT DETECTED; SARS-CoV-2 -RESP PCR PANEL NOT DETECTED
[2022-05-08] MEDS ORDERED: ACETAMINOPHEN 325 MG TABLET PO PRN (20:00)
[2022-05-08] MEDS ORDERED: ONDANSETRON 4 MG/2 ML VIAL IVP PRN (20:01)
--- NOTE | 2022-05-08 20:42 | HISTORY & PHYSICAL EXAMINATION ---
Chief Complaint - Chief Complaint Chief Complaint: SOB, cough History of Present Illness - Admitted From Admitted From:: ED - History Obtained From Records Reviewed: yes History obtained from: pt - History of Present Illness HPI Comment/Other: This is a 77 yo female with hx of COPD, CHF, CAD s/p CABG, HTN, a-fib on [place] and HLD who presented to the ED with cc of worsening SOB and cough, she was recently DC from this ED for same symptoms, DC with Doxycycline and oral steroid. Today her WBC was 20K, tachypneic, septic, CXR showed PNA picture, Flu A +, also INR was supratherapeutic above 10, but no signs of bleeding. For AE of COPD, flu infection and PNA, hospitalist was contacted to admit the pt for further management. History - Past Medical History Cardiovascular: reports: Congestive heart failure, Hypertension, High cholesterol, Coronary artery disease, Atrial fibrillation Respiratory: reports: COPD Endocrine/Autoimmune: reports: None GI: reports: None SUPPORT ASSISTANT: reports: None : reports: None HEENT: reports: Chronic vision loss Psych: reports: None Musculoskeletal: reports: None Derm: reports: None MRSA Hx?: No - Past Surgical History General: reports: Cholecystectomy Ortho: reports: Carpal Tunnel surgery /SUPPORT ASSISTANT: reports: Hysterectomy Cardiovascular: reports: Pacemaker HEENT: reports: Cataracts, Tonsil/Adenoidectomy - Family & Social History Family History Comment/Other: non-contributory - Substance History Use: Uses substance without health or social issues: NONE Dependence: Experiences withdrawal or developed tolerances: NONE - POLST Patient has POLST: No Meds/Allgy - Home Medications Home Medications: Ambulatory Orders Medication Instructions Recorded Confirmed Losartan [Cozaar] 100 mg PO BID 01/29/13 04/05/19 Simvastatin [Zocor] 20 mg PO QPM 01/29/13 04/05/19 Albuterol Sulf [Ventolin Hfa 2 puffs INH Q4H PRN 06/04/16 04/05/19 Inhaler] Budesonide [Pulmicort Flexhaler] 2 puffs INH BID 06/04/16 04/05/19 Cetirizine [ZyrTEC] 10 mg PO DAILY 06/04/16 04/05/19 Fluticasone [Flonase] 1 spray MACARIO BID 06/04/16 04/05/19 Ipratropium/Albuterol [Duoneb] 3 ml INH Q4H PRN 06/04/16 04/05/19 Metoprolol Tartrate 50 mg PO BID 06/04/16 04/05/19 Warfarin [Coumadin] 0.5 mg PO DAILY 06/04/16 04/05/19 Warfarin [Coumadin] 1 mg PO DAILY 06/04/16 04/05/19 Tolterodine [Detrol LA] 4 mg PO ONCE 01/16/19 04/05/19 amLODIPine [Norvasc] 5 mg PO ONCE 01/16/19 04/05/19 Doxycycline Hyclate 100 mg PO BID #14 cap 05/02/22 predniSONE [Deltasone] 20 mg PO [id number] #21 tab 05/02/22 - Allergies Allergies/Adverse Reactions: Allergies Allergy/AdvReac Type Severity Reaction Status Date / Time lidocaine Allergy Severe Dizziness Verified 05/08/22 15:54 Review of Systems - Other Findings Other Findings: Review of system : For Positive ROS symptoms see HPI. General: negative for fevers, chills. Respiratory: negative for wheezing Cardiovascular: negative for chest pain, Gastrointestinal - negative for abdominal pain , nausea & vomiting , diarrhea Genitourinary - negative for flank pain, hematuria, dysuria or trouble voiding symptoms. Exam - Vital Signs Reviewed Vital Signs: Yes Vital Signs: Vital Signs x48h Temp Pulse Resp BP Pulse Ox 05/08/22 19:11 71 16 109/63 94 05/08/22 18:02 67 25 H 129/67 93 05/08/22 17:38 67 22 05/08/22 17:14 69 22 90 L 05/08/22 16:01 75 23 92 05/08/22 15:46 36.9 C 71 22 117/53 L 87 L - Physical Exam General Appearance: positive: No acute distress Eyes Bilateral: positive: Normal inspection, EOMI ENT: positive: No signs of dehydration Neck: positive: Nml inspection Respiratory: positive: Wheezes. negative: Rales, Rhonchi Cardiovascular: positive: Regular rate & rhythm, No murmur Abdomen: positive: Non-tender, Nml bowel sounds Skin: positive: Color nml Neurologic/Psychiatric: positive: Oriented x3, Mood/affect nml Sepsis Event Note (H) - Evaluation Current Stage of Sepsis: Sepsis Possible source of Sepsis: positive: Pulmonary Confirmed Source and Organism (if known) of Sepsis: PNA and flu infection - Sepsis Criteria Sepsis Criteria: Recorded Respiratory Rate greater than 20, WBC count greater than 12,000 or less than 4000 Conclusion/Plan - Problem List (1) COPD exacerbation Conclusion/Plan: AE of COPD 2/2 CAP and Flu A infection, started her on oral steroid, Duoneb ATC, IV abxs and Tamiflu, oxygen support as needed, currently satting fine on RA. (2) Elevated INR Conclusion/Plan: Hold home dose of Coumadin, pt received vitamin K 5 mg oral x1 in the ED, no signs of bleeding, monitor INR daily (3) Pneumonia Conclusion/Plan: CXR showed right base opacities, started her on Rocephin and Azithromycin IV Qualifiers: Pneumonia type: due to unspecified organism Laterality: right Lung location: lower lobe of lung Qualified Code(s): J18.9 - Pneumonia, unspecified organism (4) Paroxysmal A-fib Conclusion/Plan: HR stable at this time, supratherapeutic INR, vitamin K 5 mg oral x1 given in the ED, monitor daily INR, currently no signs of bleeding (5) Community acquired pneumonia Qualifiers: Laterality: unspecified laterality Qualified Code(s): J18.9 - Pneumonia, unspecified organism (6) Hyponatremia Conclusion/Plan: will check serum osmolality, urine osmolality, and urinary sodium concentration, and monitor daily renal panel for now. - Lab Results Lab results reviewed: Yes Fish Bones: 05/08/22 16:10 05/08/22 16:53 - Diagnostic Imaging Results Diagnostic Imaging Results: positive: Final report reviewed Core Measures - Anticipated LOS I expect patient to be DC'd or transferred within 96 hours.: Yes - DVT/VTE - Prophylaxis VTE/DVT Device ordered at admit?: Yes VTE/DVT Prophylaxis med ordered at admit?: No Not Ordered - Medical Reason: Contraindicated Telemedicine Consult Details - Provider Location & Consult Time Telemedicine consultation conducted via videoconferencing?: Yes List names and roles of persons who participated in consult:: Housesupervivor assisted me with video conference Telemedicine provider location:: [place] Time Telemedicine consult began:: 19:10 Time Telemedicine consult completed:: 20:30
[2022-05-08] MEDS ORDERED: BUDESONIDE 180 MCG INH SCH (21:00)
[2022-05-08] MEDS: OSELTAMIVIR 75 MG CAPSULE PO SCH (21:46)
[2022-05-08] MEDS: predniSONE 20 MG TABLET PO SCH (21:46)
[2022-05-08] MEDS: IPRATROPIUM/ALBUTEROL 3 ML NEB INH SCH (21:50)
[2022-05-09] MEDS ORDERED: SODIUM CHLORIDE FLUSH 0.9% 10 ML SYRINGE IVP SCH (01:00)
[2022-05-09] MEDS: SODIUM CHLORIDE FLUSH 0.9% 10 ML SYRINGE IVP SCH ×3 (03:38→17:12)
[2022-05-09] MEDS: IPRATROPIUM/ALBUTEROL 3 ML NEB INH SCH ×4 (03:50→23:50)
[2022-05-09 05:38] LABS: BASOPHILS % (AUTO) 0.2 %; HCT - HEMATOCRIT 38.8 % (37.0-47.0); HGB - HEMOGLOBIN 12.7 g/dL (12.0-16.0); LYMPHOCYTES # (AUTO) 0.6 10^3/uL (1.5-3.5); LYMPHOCYTES % (AUTO) 3.1 %; MEAN CORPUSCULAR HEMOGLOBIN 28.3 pg (27.0-31.0); MEAN CORPUSCULAR HGB CONC 32.7 g/dL (32.0-36.0); MEAN CORPUSCULAR VOLUME 86.4 fL (81.0-99.0); MEAN PLATELET VOLUME 9.2 fL (7.9-10.8); MONOCYTES # (AUTO) 1.1 10^3/uL (0.0-1.0); MONOCYTES % (AUTO) 5.9 %; NEUTROPHILS # (AUTO) 16.6 10^3/uL (1.5-6.6); PLT - PLATELET COUNT 222 10^3/uL (130-450); RED BLOOD COUNT 4.49 10^6/uL (4.20-5.40); RED CELL DISTRIBUTION WIDTH 11.9 % (12.0-15.0); WHITE BLOOD COUNT 18.5 x10^3/uL (4.8-10.8)
[2022-05-09 05:51] LABS: ALBUMIN 3.1 g/dL (3.2-5.5); CALCIUM 8.9 mg/dL (8.5-10.3); CREATININE 0.5 mg/dL (0.4-1.0); PHOSPHORUS 3.5 mg/dL (2.5-4.6); POTASSIUM 4.2 mmol/L (3.5-5.0)
[2022-05-09 05:53] LABS: INR 2.3 (0.8-1.2); PT - PROTHROMBIN TIME 24.8 secs (9.9-12.6)
--- NOTE | 2022-05-09 07:46 | PROVIDER PROGRESS NOTE ---
Assessment/Plan - Problem List (1) Acute respiratory failure with hypoxia Assessment/Plan: This patient was hypoxic at her PCP office visit yesterday and was sent into the ER. The first O2 saturation in the ED on room air was 87%. She was started on 2 L O2 and is now saturating at approximately 93%. The cause appears to be a community-acquired pneumonia plus a COPD exacerbation from influenza A. Plan: Continue supplemental O2 to keep sats over 88% in a COPD-er. Titrate down O2 as possible This patient will need an oximetry walk test on the day of discharge to see if she needs a new home oxygen order. (2) COPD exacerbation Conclusion/Plan: She has an acute exacerbation of COPD due to CAP and Flu A infection. Despite having been on Prednisone 20 mg daily, she did not improve, was SOB and wheezing at admission Plan: Continue her on oral steroid, Prednisone dose was increased to 40 mg daily. Duoneb ATC and will add q4h prn Cont IV abxs and Tamiflu was started Cont oxygen support as needed (3) Influenza A infection Conclusion/Plan: As per Hx. Plan: Tamiflu ordered Will start scheduled Mucinex for several days Will also order Tessalon Perles prn for her cough, she requests because they work best for her Resp infection precautions (4) Community acquired pneumonia Conclusion/Plan: CXR showed right base opacities Plan: Continue her on empiric Rocephin and Azithromycin IV Qualifiers: Pneumonia type: due to unspecified organism Laterality: right Lung location: lower lobe of lung Qualified Code(s): J18.9 - Pneumonia, unspecified organism (5) Paroxysmal A-fib Conclusion/Plan: HR stable at this time and she is in NSR Plan: Will resume her usual beta-yanira dose (Metoprolol Tartrate 50 twice daily) Will resume her Coumadin Continue telemetry monitoring (6) Hyponatremia Conclusion/Plan: This may be from prednisone use and free water retention or from her Lasix use and excessive salt depletion. Plan: Admitting provider ordered serum osmolality, urine osmolality, and urinary sodium concentration No iv NS has been started and no Lasix has been resumed. We will allow her fluids to equilibrate Monitor daily BMP (7) Hx CAD Conclusion/Plan: Plan: We will resume her usual beta-yanira, statins and other home meds (8) Elevated INR Conclusion/Plan: Likely related to change in meds (antibx use). She had no signs of bleeding INR has improved this morning. Plan: We held home dose of Coumadin and pt received vitamin K 5 mg oral x1 in the ED. Today INR in therapetic range (2.3). We will resume her usual Coumadin dose Follow INR daily - Current Meds Current Meds: Current Medications Generic Name Dose Route Start Last Admin Trade Name Freq PRN Reason Stop Dose Admin Albuterol/Ipratropium 3 ml 05/08/22 21:00 05/09/22 03:50 Ipratropium/Albuterol 3 Ml Neb INH 3 ml QID LILY Administration Oseltamivir Phosphate 75 mg 05/08/22 21:00 05/08/22 21:46 Oseltamivir 75 Mg Capsule PO 05/13/22 20:59 75 mg BID LILY Administration Prednisone 40 mg 05/08/22 21:00 05/08/22 21:46 Prednisone 20 Mg Tablet PO 05/13/22 20:59 40 mg DAILY LILY Administration Sodium Chloride 10 ml 05/09/22 01:00 05/09/22 03:38 Sodium Chloride Flush 0.9% 10 Ml Syringe IVP Not Given 0100,0900,1700 LILY - Lab Result Fish Bone Diagrams: 05/11/22 05:28 05/11/22 05:28 - Additional Planning My Orders: My Active Orders 05/09/22 05:28 BNP - B-NATRIURETIC PEPTIDE [IAI] Routine 05/09/22 07:35 Nebulizer/MDI Tx. [RC] QID Resp Teach Nebulizer/MDI [RC] .ONCE Ipratropium/Albuterol [Duoneb] 3 ml INH Q4HR PRN 05/09/22 09:00 Metoprolol Tartrate [Lopressor] 50 mg PO BID Warfarin [Coumadin] 0.5 mg PO DAILY Warfarin [Coumadin] 1 mg PO DAILY Subjective - Subjective Patient Reports: Cough, Shortness of Breath, Other (Feels exhausted from this URI for so many days) Nursing Reports: Other (Is very tachypneic when walking to BR from her bed here) Objective Vital Signs: Vital Signs - 24 hr 05/08/22 05/08/22 05/08/22 15:46 16:01 17:14 Temperature 36.9 C Heart Rate 71 75 69 Heart Rate [ Brachial] Respiratory 22 23 22 Rate Blood Pressure 117/53 L Blood Pressure [Right Brachial artery] O2 Saturation 87 L 92 90 L If not protocol : Oxygen Flow, liters/minute 05/08/22 05/08/22 05/08/22 17:38 18:02 19:11 Temperature Heart Rate 67 67 71 Heart Rate [ Brachial] Respiratory 22 25 H 16 Rate Blood Pressure 129/67 109/63 Blood Pressure [Right Brachial artery] O2 Saturation 93 94 If not protocol : Oxygen Flow, liters/minute 05/08/22 05/08/22 05/08/22 20:46 21:50 22:10 Temperature Heart Rate 75 67 Heart Rate [ Brachial] Respiratory 15 24 15 Rate Blood Pressure Blood Pressure [Right Brachial artery] O2 Saturation 96 If not protocol 2 : Oxygen Flow, liters/minute 05/08/22 05/08/22 05/09/22 22:30 23:56 00:00 Temperature Heart Rate 69 66 67 Heart Rate [ Brachial] Respiratory 19 18 18 Rate Blood Pressure 143/99 H 140/69 H 141/74 H Blood Pressure [Right Brachial artery] O2 Saturation 96 94 97 If not protocol 2 2 : Oxygen Flow, liters/minute 05/09/22 05/09/22 05/09/22 01:16 03:50 04:18 Temperature 36.6 C Heart Rate 65 Heart Rate [ 72 Brachial] Respiratory 20 20 Rate Blood Pressure Blood Pressure 146/66 H [Right Brachial artery] O2 Saturation 93 If not protocol 2 2 2 : Oxygen Flow, liters/minute Oxygen O2 Source Nasal cannula Oxygen Flow Rate 2 I&O (Last 24 Hrs): Intake and Output Totals x24h 05/07/22 05/08/22 05/09/22 23:59 23:59 23:59 Intake Total 350 Output Total 200 Balance 350 -200 General: Alert, Oriented x3 HEENT: Mucous membr. moist/pink, Other (wearing O2 per n.c.) Neck: Supple, No JVD Neuro: Alert, Non Focal Cardiovascular: No murmurs (distant heart sounds over the wheezes) Respiratory: Wheezes (in all lung young) Abdomen: Normal bowel sounds, Soft Extremities: No clubbing, No edema - Results Results: Laboratory Results WBC 18.5 x10^3/uL (4.8-10.8) H 05/09/22 05:28 RBC 4.49 10^6/uL (4.20-5.40) 05/09/22 05:28 Hgb 12.7 g/dL (12.0-16.0) 05/09/22 05:28 Hct 38.8 % (37.0-47.0) 05/09/22 05:28 MCV 86.4 fL (81.0-99.0) 05/09/22 05:28 MCH 28.3 pg (27.0-31.0) 05/09/22 05:28 MCHC 32.7 g/dL (32.0-36.0) 05/09/22 05:28 RDW 11.9 % (12.0-15.0) L 05/09/22 05:28 Plt Count 222 10^3/uL (130-450) 05/09/22 05:28 MPV 9.2 fL (7.9-10.8) 05/09/22 05:28 Neut # (Auto) 16.6 10^3/uL (1.5-6.6) H 05/09/22 05:28 Lymph # (Auto) 0.6 10^3/uL (1.5-3.5) L 05/09/22 05:28 [place] # (Auto) 1.1 10^3/uL (0.0-1.0) H 05/09/22 05:28 Eos # (Auto) 0.0 10^3/uL (0.0-0.7) 05/09/22 05:28 Baso # (Auto) 0.0 10^3/uL (0.0-0.1) 05/09/22 05:28 Absolute Nucleated RBC 0.00 x10^3/uL 05/09/22 05:28 Total Counted 100 05/08/22 16:10 Band Neuts % (Manual) 1 % (0-10) 05/08/22 16:10 Abnorm Lymph % (Manual) 0 % 05/08/22 16:10 Nucleated RBC % 0.0 /100WBC 05/09/22 05:28 Neutrophils # (Manual) 17.5 10^3/uL (1.5-6.6) H 05/08/22 16:10 Lymphocytes # (Manual) 0.6 10^3/uL (1.5-3.5) L 05/08/22 16:10 Monocytes # (Manual) 2.7 10^3/uL (0.0-1.0) H 05/08/22 16:10 Eosinophils # (Manual) 0.0 10^3/uL (0-0.7) 05/08/22 16:10 Basophils # (Manual) 0.0 10^3/uL (0-0.1) 05/08/22 16:10 Differential Comment MANUAL DIFFERENTIAL 05/08/22 16:10 WBC Morphology NORMAL APPEARANCE (NORMAL) 05/08/22 16:10 Platelet Estimate NORMAL (130-450,000) (NORMAL) 05/08/22 16:10 Platelet Morphology NORMAL APPEARANCE (NORMAL) 05/08/22 16:10 RBC Morph Micro Appear NORMAL APPEARANCE (NORMAL) 05/08/22 16:10 PT 24.8 secs (9.9-12.6) H 05/09/22 05:28 INR 2.3 (0.8-1.2) H 05/09/22 05:28 Sodium 128 mmol/L (135-145) L 05/09/22 05:28 Potassium 4.2 mmol/L (3.5-5.0) 05/09/22 05:28 Chloride 93 mmol/L (101-111) L 05/09/22 05:28 Carbon Dioxide 26 mmol/L (21-32) 05/09/22 05:28 Anion Gap 9.0 (6-13) 05/09/22 05:28 BUN 18 mg/dL (6-20) 05/09/22 05:28 Creatinine 0.5 mg/dL (0.4-1.0) 05/09/22 05:28 Estimated GFR (MDRD) 119 (>89) 05/09/22 05:28 Glucose 145 mg/dL (70-100) H 05/09/22 05:28 Calcium 8.9 mg/dL (8.5-10.3) 05/09/22 05:28 Phosphorus 3.5 mg/dL (2.5-4.6) 05/09/22 05:28 Total Bilirubin 0.7 mg/dL (0.2-1.0) 05/08/22 16:53 AST 20 IU/L (10-42) 05/08/22 16:53 ALT 25 IU/L (10-60) 05/08/22 16:53 Alkaline Phosphatase 52 IU/L (42-121) 05/08/22 16:53 Troponin I High Sens 3.5 ng/L (2.3-14.8) 05/08/22 16:10 Total Protein 6.2 g/dL (6.7-8.2) L 05/08/22 16:53 Albumin 3.1 g/dL (3.2-5.5) L 05/09/22 05:28 Globulin 2.7 g/dL (2.1-4.2) 05/08/22 16:53 Albumin/Globulin Ratio 1.3 (1.0-2.2) 05/08/22 16:53 Lipase 23 U/L (22-51) 05/08/22 16:53 Urine Sodium 121.0 mmol/L 05/09/22 03:30 Nasal Adenovirus (PCR) NOT DETECTED 05/08/22 17:52 Nasal B. parapertussis DNA (PCR) NOT DETECTED 05/08/22 17:52 Nasal Coronavir 229E PCR NOT DETECTED 05/08/22 17:52 Nasal Coronavir HKU1 PCR NOT DETECTED 05/08/22 17:52 Nasal Coronavir NL63 PCR NOT DETECTED 05/08/22 17:52 Nasal Coronavir OC43 PCR NOT DETECTED 05/08/22 17:52 Nasal Enterovir/Rhinovir PCR NOT DETECTED 05/08/22 17:52 Nasal Influenza A PCR DETECTED A 05/08/22 17:52 Nasal Influenza B PCR NOT DETECTED 05/08/22 17:52 Nasal Parainfluen 1 PCR NOT DETECTED 05/08/22 17:52 Nasal Parainfluen 2 PCR NOT DETECTED 05/08/22 17:52 Nasal Parainfluen 3 PCR NOT DETECTED 05/08/22 17:52 Nasal Parainfluen 4 PCR NOT DETECTED 05/08/22 17:52 Nasal RSV (PCR) NOT DETECTED 05/08/22 17:52 Nasal B.pertussis DNA PCR NOT DETECTED 05/08/22 17:52 Nasal C.pneumoniae (PCR) NOT DETECTED 05/08/22 17:52 [place] Human Metapneumo PCR NOT DETECTED 05/08/22 17:52 Nasal M.pneumoniae (PCR) NOT DETECTED 05/08/22 17:52 Nasal SARS-CoV-2 (PCR) NOT DETECTED 05/08/22 17:52 Sepsis Event Note (H) - Evaluation Current Stage of Sepsis: Sepsis Possible source of Sepsis: positive: Pulmonary - Sepsis Criteria Sepsis Criteria: Recorded Respiratory Rate greater than 20, WBC count greater than 12,000 or less than 4000
[2022-05-09] MEDS: AZITHROMYCIN INJ 500 MG in SODIUM CHLORIDE 0.9% 250 ML IV SCH (08:43)
[2022-05-09] MEDS: BUDESONIDE 0.5 MG/2 ML NEB INH SCH ×2 (08:47→18:12)
[2022-05-09] MEDS: IPRATROPIUM/ALBUTEROL 3 ML NEB INH PRN (08:47)
[2022-05-09] MEDS: METOPROLOL TARTRATE 50 MG TABLET PO SCH ×2 (08:49→21:24)
[2022-05-09] MEDS: OSELTAMIVIR 75 MG CAPSULE PO SCH ×2 (08:50→21:26)
[2022-05-09] MEDS: predniSONE 20 MG TABLET PO SCH (08:50)
[2022-05-09] MEDS ORDERED: WARFARIN 1 MG TABLET PO SCH ×2 (09:00)
[2022-05-09] MEDS: BENZONATATE 100 MG CAPSULE PO PRN ×2 (09:08→21:28)
[2022-05-09] MEDS: cefTRIAXone 1 GM in SODIUM CHLORIDE 0.9% MINIBAG 100 ML IV SCH (10:37)
[2022-05-09] MEDS: guaiFENesin 600 MG TABLET PO SCH ×2 (10:38→21:27)
--- NOTE | 2022-05-09 16:39 | PHARMACY PROGRESS NOTE ---
- Best Possible Medication History Admit Date and Time: 05/08/221928 Processed by: Pharmacy Medication History completed: Yes Patient Interview: Completed Secondary Source(s): Insurance records (PT REMEMBERS MEDS AND DOSES VERY WELL. Reports she was told her body is very sensitive to warfarin. On 0.5mg 5 to 6 days a week and INR was above 6, 8, then 10.) As the person ultimately responsible for medication therapy, providers are able to order a medication from an existing home medication list in [facility] via the "Reconcile Routine" prior to Confirmation of that medication by applications support engineer. Such practice is discouraged except when the physician, in their clinical judgment, deems that a medical need exists for a medication without regard to previous use.
[2022-05-09] MEDS: SACCHAROMYCES BOULARDII 250 MG CAPSULE PO SCH (17:12)
[2022-05-09] MEDS: ATORVASTATIN 10 MG TABLET PO SCH (21:26)
[2022-05-10] MEDS: SODIUM CHLORIDE FLUSH 0.9% 10 ML SYRINGE IVP SCH ×3 (01:37→17:31)
[2022-05-10 06:11] LABS: BASOPHILS % (AUTO) 0.1 %; EOSINOPHILS % (AUTO) 0.1 %; HCT - HEMATOCRIT 37.6 % (37.0-47.0); LYMPHOCYTES # (AUTO) 1.2 10^3/uL (1.5-3.5); LYMPHOCYTES % (AUTO) 8.1 %; MEAN CORPUSCULAR HEMOGLOBIN 27.4 pg (27.0-31.0); MEAN CORPUSCULAR HGB CONC 31.9 g/dL (32.0-36.0); MEAN CORPUSCULAR VOLUME 85.8 fL (81.0-99.0); MEAN PLATELET VOLUME 9.4 fL (7.9-10.8); MONOCYTES # (AUTO) 1.6 10^3/uL (0.0-1.0); MONOCYTES % (AUTO) 11.1 %; NEUTROPHILS # (AUTO) 11.5 10^3/uL (1.5-6.6); NEUTROPHILS % (AUTO) 77.8 %; PLT - PLATELET COUNT 228 10^3/uL (130-450); RED BLOOD COUNT 4.38 10^6/uL (4.20-5.40); RED CELL DISTRIBUTION WIDTH 11.9 % (12.0-15.0); WHITE BLOOD COUNT 14.8 x10^3/uL (4.8-10.8)
[2022-05-10 06:15] LABS: INR 1.3 (0.8-1.2); PT - PROTHROMBIN TIME 14.5 secs (9.9-12.6)
[2022-05-10] MEDS: IPRATROPIUM/ALBUTEROL 3 ML NEB INH SCH ×4 (06:15→19:11)
[2022-05-10] MEDS: BUDESONIDE 0.5 MG/2 ML NEB INH SCH ×2 (06:15→19:11)
[2022-05-10 06:24] LABS: ALBUMIN 2.8 g/dL (3.2-5.5); CALCIUM 8.8 mg/dL (8.5-10.3); CREATININE 0.5 mg/dL (0.4-1.0); PHOSPHORUS 2.3 mg/dL (2.5-4.6); POTASSIUM 4.1 mmol/L (3.5-5.0)
[2022-05-10 07:04] LABS: DIFFERENTIAL COMMENT MANUAL=AUTO DIFF; PLATELET ESTIMATE, MANUAL NORMAL (130-450,000) (NORMAL); RBC MORPHOLOGY (MULTIPLE) NORMAL APPEARANCE (NORMAL)
[2022-05-10] MEDS: predniSONE 20 MG TABLET PO SCH (08:20)
[2022-05-10] MEDS: METOPROLOL TARTRATE 50 MG TABLET PO SCH ×2 (08:20→20:51)
[2022-05-10] MEDS: guaiFENesin 600 MG TABLET PO SCH ×2 (08:20→20:52)
[2022-05-10] MEDS: OSELTAMIVIR 75 MG CAPSULE PO SCH ×2 (08:20→20:51)
[2022-05-10] MEDS: SACCHAROMYCES BOULARDII 250 MG CAPSULE PO SCH ×2 (08:20→17:31)
[2022-05-10] MEDS: cefTRIAXone 1 GM in SODIUM CHLORIDE 0.9% MINIBAG 100 ML IV SCH (08:21)
[2022-05-10] MEDS ORDERED: WARFARIN 5 MG TABLET PO STA (08:44)
[2022-05-10] MEDS: AZITHROMYCIN INJ 500 MG in SODIUM CHLORIDE 0.9% 250 ML IV SCH (09:27)
[2022-05-10] MEDS ORDERED: WARFARIN 1 MG TABLET PO SCH (12:00)
[2022-05-10 12:09] LABS: OSMOLALITY 272 mOsmol/kg (280-301); OSMOLALITY URINE 699 mOsmol/kg (.)
[2022-05-10] MEDS: MULTIVITAMIN TABLET PO SCH (17:30)
--- NOTE | 2022-05-10 19:01 | PROVIDER PROGRESS NOTE ---
Assessment/Plan - Problem List (1) Acute respiratory failure with hypoxia Assessment/Plan: This patient was hypoxic at her PCP office visit yesterday and was sent into the ER. The first O2 saturation in the ED on room air was 87%. She was started on 2 L O2 and is now saturating at approximately 93%. The cause appears to be a community-acquired pneumonia plus a COPD exacerbation from influenza A. Plan: Continue supplemental O2 to keep sats over 88% in a COPD-er. Titrate down O2 as possible This patient will need an oximetry walk test on the day of discharge to see if she needs a new home oxygen order. (2) COPD exacerbation Conclusion/Plan: She has an acute exacerbation of COPD due to CAP and Flu A infection. Despite having been on Prednisone 20 mg daily, she did not improve, was SOB and wheezing at admission Plan: Continue her on oral steroid, Prednisone dose was increased to 40 mg daily. Duoneb ATC and will add q4h prn Cont IV abxs and Tamiflu was started Cont oxygen support as needed (3) Influenza A infection Conclusion/Plan: As per Hx. Plan: Tamiflu ordered We started scheduled Mucinex for several days Will also order Tessalon Perles prn for her cough, she requests because they work best for her Resp infection precautions (4) Community acquired pneumonia Conclusion/Plan: CXR showed right base opacities Plan: Continue her on empiric Rocephin and Azithromycin IV Qualifiers: Pneumonia type: due to unspecified organism Laterality: right Lung location: lower lobe of lung Qualified Code(s): J18.9 - Pneumonia, unspecified organism (5) Paroxysmal A-fib Conclusion/Plan: HR stable at this time and she is in NSR Plan: Will resume her usual beta-yanira dose (Metoprolol Tartrate 50 twice daily) Will resume her Coumadin Continue telemetry monitoring (6) Hyponatremia Conclusion/Plan: Na was 127 at adm>> 128>> 133 today This may be from prednisone use and free water retention or from her Lasix use causing excessive salt depletion. Her serum osmolality came back low, urine osmolality normal, and urinary sodium concentration (appropriately) low, not high (as with Lasix use) Plan: No iv NS has been started and no Lasix had been resumed. We were allowing her fluids to equilibrate, and they are Monitor daily BMP (7) Hx CAD Conclusion/Plan: Plan: We will resume her usual beta-yanira, statins and other home meds (8) Elevated INR Conclusion/Plan: Likely related to change in meds (antibx use). She had no signs of bleeding INR has improved this morning. Plan: We held home dose of Coumadin and pt received vitamin K 5 mg oral x1 in the ED. Today INR in therapetic range (2.3). We will resume her usual Coumadin dose Follow INR daily - Current Meds Current Meds: Current Medications Generic Name Dose Route Start Last Admin Trade Name Freq PRN Reason Stop Dose Admin Albuterol/Ipratropium 3 ml 05/08/22 21:00 05/10/22 15:26 Ipratropium/Albuterol 3 Ml Neb INH 3 ml QID LILY Administration Albuterol/Ipratropium 3 ml 05/09/22 07:35 05/09/22 08:47 Ipratropium/Albuterol 3 Ml Neb INH 3 ml Q4HR PRN Administration Wheezing Atorvastatin Calcium 10 mg 05/09/22 21:00 05/09/22 21:26 Atorvastatin 10 Mg Tablet PO 10 mg QPM LILY Administration Benzonatate 100 mg 05/09/22 08:38 05/09/22 21:28 Benzonatate 100 Mg Capsule PO 100 mg TID PRN Administration Cough Budesonide 0.5 mg 05/09/22 07:00 05/10/22 06:15 Budesonide 0.5 Mg/2 Ml Neb INH 0.5 mg RTBID LILY Administration Guaifenesin 600 mg 05/09/22 10:00 05/10/22 08:20 Guaifenesin 600 Mg Tablet PO 600 mg BID LILY Administration Azithromycin 500 mg/ Sodium 250 mls @ 250 mls/hr 05/09/22 09:00 05/10/22 10:30 Chloride IV 05/11/22 08:59 Infused DAILY LILY Infusion Ceftriaxone Sodium 1 gm/ 100 mls @ 200 mls/hr 05/09/22 09:00 05/10/22 09:23 Sodium Chloride IV 05/13/22 08:59 Infused DAILY LILY Infusion Metoprolol Tartrate 50 mg 05/09/22 09:00 05/10/22 08:20 Metoprolol Tartrate 50 Mg Tablet PO 50 mg BID LILY Administration Multivitamins 1 tab 05/10/22 17:00 05/10/22 17:30 Multivitamin Tablet PO 1 tab DAILYWM LILY Administration Oseltamivir Phosphate 75 mg 05/08/22 21:00 05/10/22 08:20 Oseltamivir 75 Mg Capsule PO 05/13/22 20:59 75 mg BID LILY Administration Prednisone 40 mg 05/08/22 21:00 05/10/22 08:20 Prednisone 20 Mg Tablet PO 05/13/22 20:59 40 mg DAILY LILY Administration Saccharomyces Boulardii 250 mg 05/09/22 17:00 05/10/22 17:31 Saccharomyces Boulardii 250 Mg Capsule PO 250 mg BIDWM LILY Administration Sodium Chloride 10 ml 05/09/22 01:00 05/10/22 17:31 Sodium Chloride Flush 0.9% 10 Ml Syringe IVP 10 ml 0100,0900,1700 LILY Administration - Lab Result Fish Bone Diagrams: 05/11/22 05:28 05/11/22 05:28 - Additional Planning My Orders: My Active Orders 05/10/22 Dinner Cardiac Diet [DIET] 05/10/22 17:00 Multivitamin [Theragran] 1 tab PO DAILYWM 05/11/22 05:00 BMP - BASIC METABOLIC PANEL [CHEM] DAILYLAB 05/11/22 14:00 Warfarin [Coumadin] 0.5 mg PO QDWARFARIN 05/12/22 05:00 BMP - BASIC METABOLIC PANEL [CHEM] DAILYLAB 05/13/22 05:00 BMP - BASIC METABOLIC PANEL [CHEM] DAILYLAB Subjective - Subjective Patient Reports: Shortness of Breath (Feels no better and still exhausted, is still tachypneic after walk to BR from her bed here) Objective Vital Signs: Vital Signs - 24 hr 05/09/22 05/09/22 05/10/22 21:24 23:50 00:00 Temperature 36.2 C L Heart Rate 68 Heart Rate [ 68 Brachial] Respiratory 20 17 Rate Blood Pressure 138/64 H Blood Pressure [Right Brachial artery] Blood Pressure 129/66 [Right Radial artery] O2 Saturation 94 If not protocol 2 2 : Oxygen Flow, liters/minute 05/10/22 05/10/22 05/10/22 06:15 08:00 08:20 Temperature 36.4 C L Heart Rate 74 Heart Rate [ 64 Brachial] Respiratory 24 18 Rate Blood Pressure 116/58 L Blood Pressure 116/58 L [Right Brachial artery] Blood Pressure [Right Radial artery] O2 Saturation 96 If not protocol 2 2 : Oxygen Flow, liters/minute 05/10/22 05/10/22 05/10/22 11:03 15:27 16:00 Temperature 36.3 C L Heart Rate 77 70 Heart Rate [ 66 Brachial] Respiratory 20 20 22 Rate Blood Pressure Blood Pressure 120/73 [Right Brachial artery] Blood Pressure [Right Radial artery] O2 Saturation 91 L If not protocol 2 : Oxygen Flow, liters/minute Oxygen O2 Source Nasal cannula Oxygen Flow Rate 2 I&O (Last 24 Hrs): Intake and Output Totals x24h 05/08/22 05/09/22 05/10/22 23:59 23:59 23:59 Intake Total 350 1120 1110 Output Total 200 Balance 549 477 1178 General: Alert, Oriented x3 HEENT: Mucous membr. moist/pink, Other (wearing O2 per nn.c.) Neck: Supple, No JVD Neuro: Alert, Non Focal Cardiovascular: Regular rate (distant heart sounds) Respiratory: Wheezes (scatted, prolonged exp phase) Abdomen: Normal bowel sounds, Soft Extremities: No clubbing, No edema - Results Results: Laboratory Results WBC 14.8 x10^3/uL (4.8-10.8) H 05/10/22 05:53 RBC 4.38 10^6/uL (4.20-5.40) 05/10/22 05:53 Hgb 12.0 g/dL (12.0-16.0) 05/10/22 05:53 Hct 37.6 % (37.0-47.0) 05/10/22 05:53 MCV 85.8 fL (81.0-99.0) 05/10/22 05:53 MCH 27.4 pg (27.0-31.0) 05/10/22 05:53 MCHC 31.9 g/dL (32.0-36.0) L 05/10/22 05:53 RDW 11.9 % (12.0-15.0) L 05/10/22 05:53 Plt Count 228 10^3/uL (130-450) 05/10/22 05:53 MPV 9.4 fL (7.9-10.8) 05/10/22 05:53 Neut # (Auto) 11.5 10^3/uL (1.5-6.6) H 05/10/22 05:53 Lymph # (Auto) 1.2 10^3/uL (1.5-3.5) L 05/10/22 05:53 [place] # (Auto) 1.6 10^3/uL (0.0-1.0) H 05/10/22 05:53 Eos # (Auto) 0.0 10^3/uL (0.0-0.7) 05/10/22 05:53 Baso # (Auto) 0.0 10^3/uL (0.0-0.1) 05/10/22 05:53 Absolute Nucleated RBC 0.00 x10^3/uL 05/10/22 05:53 Total Counted 100 05/08/22 16:10 Band Neuts % (Manual) Not Reportable 05/10/22 05:53 Abnorm Lymph % (Manual) Not Reportable 05/10/22 05:53 Nucleated RBC % 0.0 /100WBC 05/10/22 05:53 Neutrophils # (Manual) Not Reportable 05/10/22 05:53 Lymphocytes # (Manual) Not Reportable 05/10/22 05:53 Monocytes # (Manual) Not Reportable 05/10/22 05:53 Eosinophils # (Manual) Not Reportable 05/10/22 05:53 Basophils # (Manual) Not Reportable 05/10/22 05:53 Differential Comment MANUAL=AUTO DIFF 05/10/22 05:53 WBC Morphology NORMAL APPEARANCE (NORMAL) 05/08/22 16:10 Platelet Estimate NORMAL (130-450,000) (NORMAL) 05/10/22 05:53 Platelet Morphology NORMAL APPEARANCE (NORMAL) 05/08/22 16:10 RBC Morph Micro Appear NORMAL APPEARANCE (NORMAL) 05/10/22 05:53 PT 14.5 secs (9.9-12.6) H 05/10/22 05:53 INR 1.3 (0.8-1.2) H 05/10/22 05:53 Sodium 133 mmol/L (135-145) L 05/10/22 05:53 Potassium 4.1 mmol/L (3.5-5.0) 05/10/22 05:53 Chloride 97 mmol/L (101-111) L 05/10/22 05:53 Carbon Dioxide 29 mmol/L (21-32) 05/10/22 05:53 Anion Gap 7.0 (6-13) 05/10/22 05:53 BUN 19 mg/dL (6-20) 05/10/22 05:53 Creatinine 0.5 mg/dL (0.4-1.0) 05/10/22 05:53 Estimated GFR (MDRD) 119 (>89) 05/10/22 05:53 Glucose 94 mg/dL (70-100) 05/10/22 05:53 Serum Osmolality 272 mOsmol/kg (280-301) L 05/09/22 03:30 Calcium 8.8 mg/dL (8.5-10.3) 05/10/22 05:53 Phosphorus 2.3 mg/dL (2.5-4.6) L 05/10/22 05:53 Total Bilirubin 0.7 mg/dL (0.2-1.0) 05/08/22 16:53 AST 20 IU/L (10-42) 05/08/22 16:53 ALT 25 IU/L (10-60) 05/08/22 16:53 Alkaline Phosphatase 52 IU/L (42-121) 05/08/22 16:53 Troponin I High Sens 3.5 ng/L (2.3-14.8) 05/08/22 16:10 B-Natriuretic Peptide 123 pg/mL (5-100) H 05/09/22 05:28 Total Protein 6.2 g/dL (6.7-8.2) L 05/08/22 16:53 Albumin 2.8 g/dL (3.2-5.5) L 05/10/22 05:53 Globulin 2.7 g/dL (2.1-4.2) 05/08/22 16:53 Albumin/Globulin Ratio 1.3 (1.0-2.2) 05/08/22 16:53 Lipase 23 U/L (22-51) 05/08/22 16:53 Urine Osmolality 699 mOsmol/kg (.) 05/09/22 03:30 Urine Sodium 121.0 mmol/L 05/09/22 03:30 Nasal Adenovirus (PCR) NOT DETECTED 05/08/22 17:52 Nasal B. parapertussis DNA (PCR) NOT DETECTED 05/08/22 17:52 Nasal Coronavir 229E PCR NOT DETECTED 05/08/22 17:52 Nasal Coronavir HKU1 PCR NOT DETECTED 05/08/22 17:52 Nasal Coronavir NL63 PCR NOT DETECTED 05/08/22 17:52 Nasal Coronavir OC43 PCR NOT DETECTED 05/08/22 17:52 Nasal Enterovir/Rhinovir PCR NOT DETECTED 05/08/22 17:52 Nasal Influenza A PCR DETECTED A 11 17:52 Nasal Influenza B PCR NOT DETECTED 05/08/22 17:52 Nasal Parainfluen 1 PCR NOT DETECTED 05/08/22 17:52 Nasal Parainfluen 2 PCR NOT DETECTED 05/08/22 17:52 Nasal Parainfluen 3 PCR NOT DETECTED 05/08/22 17:52 Nasal Parainfluen 4 PCR NOT DETECTED 05/08/22 17:52 Nasal RSV (PCR) NOT DETECTED 05/08/22 17:52 Nasal B.pertussis DNA PCR NOT DETECTED 05/08/22 17:52 Nasal C.pneumoniae (PCR) NOT DETECTED 05/08/22 17:52 Kirill Human Metapneumo PCR NOT DETECTED 05/08/22 17:52 Nasal M.pneumoniae (PCR) NOT DETECTED 05/08/22 17:52 Nasal SARS-CoV-2 (PCR) NOT DETECTED 05/08/22 17:52 Sepsis Event Note (H) - Evaluation Current Stage of Sepsis: Sepsis Possible source of Sepsis: positive: Pulmonary - Sepsis Criteria Sepsis Criteria: Recorded Respiratory Rate greater than 20, WBC count greater than 12,000 or less than 4000
[2022-05-10] MEDS: ATORVASTATIN 10 MG TABLET PO SCH (20:51)
[2022-05-10] MEDS: BENZONATATE 100 MG CAPSULE PO PRN (20:51)
[2022-05-11] MEDS: SODIUM CHLORIDE FLUSH 0.9% 10 ML SYRINGE IVP SCH ×4 (00:47→23:37)
[2022-05-11] MEDS: IPRATROPIUM/ALBUTEROL 3 ML NEB INH PRN (04:21)
[2022-05-11 06:41] LABS: BASOPHILS % (AUTO) 0.2 %; EOSINOPHILS % (AUTO) 0.1 %; HCT - HEMATOCRIT 38.7 % (37.0-47.0); HGB - HEMOGLOBIN 12.4 g/dL (12.0-16.0); LYMPHOCYTES # (AUTO) 1.3 10^3/uL (1.5-3.5); MEAN CORPUSCULAR HEMOGLOBIN 28.1 pg (27.0-31.0); MEAN CORPUSCULAR VOLUME 87.6 fL (81.0-99.0); MEAN PLATELET VOLUME 9.6 fL (7.9-10.8); MONOCYTES # (AUTO) 1.3 10^3/uL (0.0-1.0); MONOCYTES % (AUTO) 9.9 %; NEUTROPHILS # (AUTO) 10.3 10^3/uL (1.5-6.6); NEUTROPHILS % (AUTO) 77.4 %; PLT - PLATELET COUNT 246 10^3/uL (130-450); RED BLOOD COUNT 4.42 10^6/uL (4.20-5.40); RED CELL DISTRIBUTION WIDTH 12.1 % (12.0-15.0); WHITE BLOOD COUNT 13.3 x10^3/uL (4.8-10.8)
[2022-05-11 06:52] LABS: CALCIUM 8.8 mg/dL (8.5-10.3); CREATININE 0.5 mg/dL (0.4-1.0); POTASSIUM 3.9 mmol/L (3.5-5.0)
[2022-05-11 06:59] LABS: INR 2.2 (0.8-1.2); PT - PROTHROMBIN TIME 23.4 secs (9.9-12.6)
[2022-05-11] MEDS: BUDESONIDE 0.5 MG/2 ML NEB INH SCH ×2 (07:15→17:31)
[2022-05-11] MEDS: MULTIVITAMIN TABLET PO SCH (08:11)
[2022-05-11] MEDS: SACCHAROMYCES BOULARDII 250 MG CAPSULE PO SCH ×2 (08:11→17:43)
[2022-05-11] MEDS: guaiFENesin 600 MG TABLET PO SCH ×2 (08:12→21:44)
[2022-05-11] MEDS: METOPROLOL TARTRATE 50 MG TABLET PO SCH ×2 (08:12→21:44)
[2022-05-11] MEDS: predniSONE 20 MG TABLET PO SCH (08:12)
[2022-05-11] MEDS: OSELTAMIVIR 75 MG CAPSULE PO SCH ×2 (08:12→21:44)
[2022-05-11] MEDS: cefTRIAXone 1 GM in SODIUM CHLORIDE 0.9% MINIBAG 100 ML IV SCH (08:14)
[2022-05-11] MEDS: IPRATROPIUM/ALBUTEROL 3 ML NEB INH SCH ×6 (10:38→21:28)
[2022-05-11] MEDS: WARFARIN 1 MG TABLET PO SCH (14:36)
--- NOTE | 2022-05-11 18:42 | PROVIDER PROGRESS NOTE ---
Assessment/Plan - Problem List (1) Acute respiratory failure with hypoxia Assessment/Plan: This patient was hypoxic at her PCP office visit yesterday and was sent into the ER. The first O2 saturation in the ED on room air was 87%. She was started on 2 L O2 and is now saturating at approximately 93%. The cause appears to be a community-acquired pneumonia plus a COPD exacerbation from influenza A. Plan: Continue supplemental O2 to keep sats over 88% in a COPD-er. Titrate down O2 as possible This patient will need an oximetry walk test on the day of discharge to see if she needs a new home oxygen order. (2) COPD exacerbation Conclusion/Plan: She has an acute exacerbation of COPD due to CAP and Flu A infection. Despite having been on Prednisone 20 mg daily, she did not improve, was SOB and wheezing at admission Plan: Continue her on oral steroid, Prednisone dose was increased to 40 mg daily. Duoneb ATC and will add q4h prn Cont IV abxs and Tamiflu was started Cont oxygen support as needed (3) Influenza A infection Conclusion/Plan: As per Hx. Plan: Tamiflu ordered We started scheduled Mucinex for several days Will also order Tessalon Perles prn for her cough, she requests because they work best for her Resp infection precautions (4) Community acquired pneumonia Conclusion/Plan: CXR showed right base opacities Plan: Continue her on empiric Rocephin and Azithromycin IV Qualifiers: Pneumonia type: due to unspecified organism Laterality: right Lung location: lower lobe of lung Qualified Code(s): J18.9 - Pneumonia, unspecified organism (5) Hyponatremia Conclusion/Plan: Na was 127 at adm>> 128>> 133>> 133 today This is likely from prednisone use and free water retention, or SIADH due to lung disease, or was thought to possibly be from her Lasix use causing excessive salt depletion. Her serum osmolality came back low, urine osmolality normal, and urinary sodium concentration (appropriately) low, not high (as with Lasix use) Plan: No iv NS has been started and no Lasix had been resumed. We were allowing her fluids to equilibrate, and they are She has no edema and does not need Lasix restarted Monitor daily BMP (6) Paroxysmal A-fib Conclusion/Plan: HR stable at this time and she is in NSR Plan: Will resume her usual beta-yanira dose (Metoprolol Tartrate 50 twice daily) Will resume her Coumadin Continue telemetry monitoring (7) Hx CAD Conclusion/Plan: Plan: We will resume her usual beta-yanira, statins and other home meds (8) Elevated INR Conclusion/Plan: Improving. Was likely related to change in meds (antibx use). She had no signs of bleeding INR in therapetic range Plan: We held home dose of Coumadin and pt received vitamin K 5 mg oral x1 in the ED. We will resume her usual Coumadin dose Follow INR daily, target INR is 2 to 3. - Current Meds Current Meds: Current Medications Generic Name Dose Route Start Last Admin Trade Name Freq PRN Reason Stop Dose Admin Albuterol/Ipratropium 3 ml 05/08/22 21:00 05/11/22 17:31 Ipratropium/Albuterol 3 Ml Neb INH 3 ml QID LILY Administration Albuterol/Ipratropium 3 ml 05/09/22 07:35 05/11/22 04:21 Ipratropium/Albuterol 3 Ml Neb INH 3 ml Q4HR PRN Administration Wheezing Atorvastatin Calcium 10 mg 05/09/22 21:00 05/10/22 20:51 Atorvastatin 10 Mg Tablet PO 10 mg QPM LILY Administration Benzonatate 100 mg 05/09/22 08:38 05/10/22 20:51 Benzonatate 100 Mg Capsule PO 100 mg TID PRN Administration Cough Budesonide 0.5 mg 05/09/22 07:00 05/11/22 17:31 Budesonide 0.5 Mg/2 Ml Neb INH 0.5 mg RTBID LILY Administration Guaifenesin 600 mg 05/09/22 10:00 05/11/22 08:12 Guaifenesin 600 Mg Tablet PO 600 mg BID LILY Administration Ceftriaxone Sodium 1 gm/ 100 mls @ 200 mls/hr 05/09/22 09:00 05/11/22 08:45 Sodium Chloride IV 05/13/22 08:59 Infused DAILY LILY Infusion Metoprolol Tartrate 50 mg 05/09/22 09:00 05/11/22 08:12 Metoprolol Tartrate 50 Mg Tablet PO 50 mg BID LILY Administration Multivitamins 1 tab 05/10/22 17:00 05/11/22 08:11 Multivitamin Tablet PO 1 tab DAILYWM LILY Administration Oseltamivir Phosphate 75 mg 05/08/22 21:00 05/11/22 08:12 Oseltamivir 75 Mg Capsule PO 05/13/22 20:59 75 mg BID LILY Administration Prednisone 40 mg 05/08/22 21:00 05/11/22 08:12 Prednisone 20 Mg Tablet PO 05/13/22 20:59 40 mg DAILY LILY Administration Saccharomyces Boulardii 250 mg 05/09/22 17:00 05/11/22 17:43 Saccharomyces Boulardii 250 Mg Capsule PO 250 mg BIDWM LILY Administration Sodium Chloride 10 ml 05/09/22 01:00 05/11/22 17:43 Sodium Chloride Flush 0.9% 10 Ml Syringe IVP 10 ml 0100,0900,1700 LILY Administration Warfarin Sodium 0.5 mg 05/11/22 14:00 05/11/22 14:36 Warfarin 1 Mg Tablet PO 0.5 mg QDWARFARIN LILY Administration - Lab Result Fish Bone Diagrams: 05/11/22 05:28 05/11/22 05:28 - Additional Planning My Orders: My Active Orders 05/11/22 14:00 Warfarin [Coumadin] 0.5 mg PO QDWARFARIN 05/12/22 05:00 BMP - BASIC METABOLIC PANEL [CHEM] DAILYLAB 05/13/22 05:00 BMP - BASIC METABOLIC PANEL [CHEM] DAILYLAB Subjective - Subjective Patient Reports: Feeling Better (She finally reports she has more energy. Slightly less short of breath when walking to the bathroom from her bed here. Still on O2 per n.c.) Objective Vital Signs: Vital Signs - 24 hr 05/10/22 05/11/22 05/11/22 19:10 00:00 04:20 Temperature 36.3 C L Heart Rate 71 64 Heart Rate [ 65 Brachial] Respiratory 18 18 18 Rate Blood Pressure Blood Pressure 144/65 H [Right Brachial artery] O2 Saturation 95 If not protocol 2 2 2 : Oxygen Flow, liters/minute 05/11/22 05/11/22 05/11/22 07:17 07:18 08:00 Temperature 36.2 C L Heart Rate 70 Heart Rate [ 71 Brachial] Respiratory 18 20 Rate Blood Pressure Blood Pressure 126/61 [Right Brachial artery] O2 Saturation 91 L If not protocol 2 2 2 : Oxygen Flow, liters/minute 1205/11/22 05/11/22 08:12 11:05 16:00 Temperature 36.5 C Heart Rate 78 Heart Rate [ 72 Brachial] Respiratory 18 20 Rate Blood Pressure 126/61 Blood Pressure 119/65 [Right Brachial artery] O2 Saturation 93 If not protocol 2 2 : Oxygen Flow, liters/minute 05/11/22 05/11/22 17:33 17:35 Temperature Heart Rate 71 Heart Rate [ Brachial] Respiratory 18 Rate Blood Pressure Blood Pressure [Right Brachial artery] O2 Saturation If not protocol 2 2 : Oxygen Flow, liters/minute Oxygen O2 Source Nasal cannula Oxygen Flow Rate 2 I&O (Last 24 Hrs): Intake and Output Totals x24h 05/09/22 05/10/22 05/11/22 23:59 23:59 23:59 Intake Total 1120 1560 690 Output Total 200 Balance 920 1560 690 General: Alert, Oriented x3 HEENT: Mucous membr. moist/pink, Other (wearing O2 per n.c.) Neck: Supple, No JVD Neuro: Alert, Non Focal Cardiovascular: Regular rate, No murmurs Respiratory: Breath sounds nml Abdomen: Normal bowel sounds, Soft Extremities: No clubbing, No edema - Results Results: Laboratory Results WBC 13.3 x10^3/uL (4.8-10.8) H 05/11/22 05:28 RBC 4.42 10^6/uL (4.20-5.40) 05/11/22 05:28 Hgb 12.4 g/dL (12.0-16.0) 05/11/22 05:28 Hct 38.7 % (37.0-47.0) 05/11/22 05:28 MCV 87.6 fL (81.0-99.0) 05/11/22 05:28 MCH 28.1 pg (27.0-31.0) 05/11/22 05:28 MCHC 32.0 g/dL (32.0-36.0) 05/11/22 05:28 RDW 12.1 % (12.0-15.0) 05/11/22 05:28 Plt Count 246 10^3/uL (130-450) 05/11/22 05:28 MPV 9.6 fL (7.9-10.8) 05/11/22 05:28 Neut # (Auto) 10.3 10^3/uL (1.5-6.6) H 05/11/22 05:28 Lymph # (Auto) 1.3 10^3/uL (1.5-3.5) L 05/11/22 05:28 [place] # (Auto) 1.3 10^3/uL (0.0-1.0) H 05/11/22 05:28 Eos # (Auto) 0.0 10^3/uL (0.0-0.7) 05/11/22 05:28 Baso # (Auto) 0.0 10^3/uL (0.0-0.1) 05/11/22 05:28 Absolute Nucleated RBC 0.00 x10^3/uL 05/11/22 05:28 Total Counted 100 05/08/22 16:10 Band Neuts % (Manual) Not Reportable 05/10/22 05:53 Abnorm Lymph % (Manual) Not Reportable 05/10/22 05:53 Nucleated RBC % 0.0 /100WBC 05/11/22 05:28 Neutrophils # (Manual) Not Reportable 05/10/22 05:53 Lymphocytes # (Manual) Not Reportable 05/10/22 05:53 Monocytes # (Manual) Not Reportable 05/10/22 05:53 Eosinophils # (Manual) Not Reportable 05/10/22 05:53 Basophils # (Manual) Not Reportable 05/10/22 05:53 Differential Comment MANUAL=AUTO DIFF 05/10/22 05:53 WBC Morphology NORMAL APPEARANCE (NORMAL) 05/08/22 16:10 Platelet Estimate NORMAL (130-450,000) (NORMAL) 05/10/22 05:53 Platelet Morphology NORMAL APPEARANCE (NORMAL) 05/08/22 16:10 RBC Morph Micro Appear NORMAL APPEARANCE (NORMAL) 05/10/22 05:53 PT 23.4 secs (9.9-12.6) H 05/11/22 05:28 INR 2.2 (0.8-1.2) H 05/11/22 05:28 Sodium 133 mmol/L (135-145) L 05/11/22 05:28 Potassium 3.9 mmol/L (3.5-5.0) 05/11/22 05:28 Chloride 96 mmol/L (101-111) L 05/11/22 05:28 Carbon Dioxide 29 mmol/L (21-32) 05/11/22 05:28 Anion Gap 8.0 (6-13) 05/11/22 05:28 BUN 16 mg/dL (6-20) 05/11/22 05:28 Creatinine 0.5 mg/dL (0.4-1.0) 05/11/22 05:28 Estimated GFR (MDRD) 119 (>89) 05/11/22 05:28 Glucose 91 mg/dL (70-100) 05/11/22 05:28 Serum Osmolality 272 mOsmol/kg (280-301) L 05/09/22 03:30 Calcium 8.8 mg/dL (8.5-10.3) 05/11/22 05:28 Phosphorus 2.3 mg/dL (2.5-4.6) L 05/10/22 05:53 Total Bilirubin 0.7 mg/dL (0.2-1.0) 05/08/22 16:53 AST 20 IU/L (10-42) 05/08/22 16:53 ALT 25 IU/L (10-60) 05/08/22 16:53 Alkaline Phosphatase 52 IU/L (42-121) 05/08/22 16:53 Troponin I High Sens 3.5 ng/L (2.3-14.8) 05/08/22 16:10 B-Natriuretic Peptide 123 pg/mL (5-100) H 05/09/22 05:28 Total Protein 6.2 g/dL (6.7-8.2) L 05/08/22 16:53 Albumin 2.8 g/dL (3.2-5.5) L 05/10/22 05:53 Globulin 2.7 g/dL (2.1-4.2) 05/08/22 16:53 Albumin/Globulin Ratio 1.3 (1.0-2.2) 05/08/22 16:53 Lipase 23 U/L (22-51) 05/08/22 16:53 Urine Osmolality 699 mOsmol/kg (.) 05/09/22 03:30 Urine Sodium 121.0 mmol/L 05/09/22 03:30 Nasal Adenovirus (PCR) NOT DETECTED 05/08/22 17:52 Nasal B. parapertussis DNA (PCR) NOT DETECTED 05/08/22 17:52 Nasal Coronavir 229E PCR NOT DETECTED 05/08/22 17:52 Nasal Coronavir HKU1 PCR NOT DETECTED 05/08/22 17:52 Nasal Coronavir NL63 PCR NOT DETECTED 05/08/22 17:52 Nasal Coronavir OC43 PCR NOT DETECTED 05/08/22 17:52 Nasal Enterovir/Rhinovir PCR NOT DETECTED 05/08/22 17:52 Nasal Influenza A PCR DETECTED A 05/08/22 17:52 Nasal Influenza B PCR NOT DETECTED 05/08/22 17:52 Nasal Parainfluen 1 PCR NOT DETECTED 05/08/22 17:52 Nasal Parainfluen 2 PCR NOT DETECTED 05/08/22 17:52 Nasal Parainfluen 3 PCR NOT DETECTED 05/08/22 17:52 Nasal Parainfluen 4 PCR NOT DETECTED 05/08/22 17:52 Nasal RSV (PCR) NOT DETECTED 05/08/22 17:52 Nasal B.pertussis DNA PCR NOT DETECTED 05/08/22 17:52 Nasal C.pneumoniae (PCR) NOT DETECTED 05/08/22 17:52 Kirill Human Metapneumo PCR NOT DETECTED 05/08/22 17:52 Nasal M.pneumoniae (PCR) NOT DETECTED 05/08/22 17:52 Nasal SARS-CoV-2 (PCR) NOT DETECTED 05/08/22 17:52 Sepsis Event Note (H) - Evaluation Current Stage of Sepsis: Sepsis Possible source of Sepsis: positive: Pulmonary - Sepsis Criteria Sepsis Criteria: Recorded Respiratory Rate greater than 20, WBC count greater than 12,000 or less than 4000
[2022-05-11] MEDS: ATORVASTATIN 10 MG TABLET PO SCH (21:44)
[2022-05-11] MEDS: BENZONATATE 100 MG CAPSULE PO PRN (21:44)
[2022-05-12 06:10] LABS: CALCIUM 8.7 mg/dL (8.5-10.3); CREATININE 0.5 mg/dL (0.4-1.0); POTASSIUM 3.8 mmol/L (3.5-5.0)
[2022-05-12] MEDS: BUDESONIDE 0.5 MG/2 ML NEB INH SCH ×2 (07:15→17:54)
[2022-05-12] MEDS: IPRATROPIUM/ALBUTEROL 3 ML NEB INH SCH ×4 (07:16→21:48)
[2022-05-12] MEDS: SACCHAROMYCES BOULARDII 250 MG CAPSULE PO SCH ×2 (07:57→17:51)
[2022-05-12] MEDS: MULTIVITAMIN TABLET PO SCH (07:57)
[2022-05-12] MEDS: METOPROLOL TARTRATE 50 MG TABLET PO SCH ×2 (08:56→21:07)
[2022-05-12] MEDS: guaiFENesin 600 MG TABLET PO SCH ×2 (08:56→21:06)
[2022-05-12] MEDS: predniSONE 20 MG TABLET PO SCH (08:56)
[2022-05-12] MEDS: OSELTAMIVIR 75 MG CAPSULE PO SCH ×2 (08:56→21:06)
[2022-05-12] MEDS: cefTRIAXone 1 GM in SODIUM CHLORIDE 0.9% MINIBAG 100 ML IV SCH (10:45)
[2022-05-12] MEDS: SODIUM CHLORIDE FLUSH 0.9% 10 ML SYRINGE IVP SCH ×2 (12:17→17:51)
[2022-05-12] MEDS: WARFARIN 1 MG TABLET PO SCH (14:12)
--- NOTE | 2022-05-12 18:43 | PROVIDER PROGRESS NOTE ---
Assessment/Plan - Problem List (1) Acute respiratory failure with hypoxia Assessment/Plan: This patient was hypoxic on room air, sat was 87%. She was started on 2 L O2 and this has slowly been weaned down. Today she is saturating on no supplemental oxygen but is tachypneic with speaking and just pivoting out of bed The cause appears to be a community-acquired pneumonia plus a COPD exacerbation from influenza A. Plan: Continue room air, if tolerated. She is not yet ready for discharge given the tachypnea at rest during speaking This patient will need an oximetry walk test on the day of discharge to see if she needs a new home oxygen order. (2) COPD exacerbation Conclusion/Plan: She has an acute exacerbation of COPD due to CAP and Flu A infection. Despite alaniz ving been on Prednisone 20 mg daily, she did not improve, was SOB and wheezing at admission Plan: Continue her on oral steroid, Prednisone dose was increased to 40 mg daily. Duoneb ATC and will add q4h prn Cont IV abxs and Tamiflu was started Cont oxygen support as needed (3) Influenza A infection Conclusion/Plan: As per Hx. Plan: Tamiflu ordered We started scheduled Mucinex for several days Will also order Tessalon Perles prn for her cough, she requests because they work best for her Resp infection precautions (4) Community acquired pneumonia Conclusion/Plan: CXR showed right base opacities Plan: Continue her on empiric Rocephin and Azithromycin IV Qualifiers: Pneumonia type: due to unspecified organism Laterality: right Lung location: lower lobe of lung Qualified Code(s): J18.9 - Pneumonia, unspecified organism (5) Hyponatremia Conclusion/Plan: Na was 127 at adm>> 128>> 133>> 133>> 134 today This is likely from prednisone use and free water retention, or SIADH due to lung disease, or was thought to possibly be from her Lasix use causing excessive salt depletion. Her serum osmolality came back low, urine osmolality normal, and urinary sodium concentration (appropriately) low, not high (as with Lasix use) Plan: No iv NS has been started and no Lasix had been resumed. We were allowing her fluids to equilibrate, and they are She has no edema and does not need Lasix restarted Monitor daily BMP (6) Paroxysmal A-fib Conclusion/Plan: HR stable at this time and she is in NSR Plan: Will resume her usual beta-yanira dose (Metoprolol Tartrate 50 twice daily) Will resume her Coumadin Continue telemetry monitoring (7) Hx CAD Conclusion/Plan: Plan: We resumed her usual beta-yanira, statins and other home meds (8) Elevated INR Conclusion/Plan: Improving. Was likely related to change in meds (antibx use). She had no signs of bleeding INR in therapetic range Plan: We held home dose of Coumadin and pt received vitamin K 5 mg oral x1 in the ED. We will resume her usual Coumadin dose Follow INR daily, target INR is 2 to 3. - Current Meds Current Meds: Current Medications Generic Name Dose Route Start Last Admin Trade Name Freq PRN Reason Stop Dose Admin Albuterol/Ipratropium 3 ml 05/08/22 21:00 05/12/22 17:54 Ipratropium/Albuterol 3 Ml Neb INH 3 ml QID LILY Administration Albuterol/Ipratropium 3 ml 05/09/22 07:35 05/11/22 04:21 Ipratropium/Albuterol 3 Ml Neb INH 3 ml Q4HR PRN Administration Wheezing Atorvastatin Calcium 10 mg 05/09/22 21:00 05/11/22 21:44 Atorvastatin 10 Mg Tablet PO 10 mg QPM LILY Administration Benzonatate 100 mg 05/09/22 08:38 05/11/22 21:44 Benzonatate 100 Mg Capsule PO 100 mg TID PRN Administration Cough Budesonide 0.5 mg 05/09/22 07:00 05/12/22 17:54 Budesonide 0.5 Mg/2 Ml Neb INH 0.5 mg RTBID LILY Administration Guaifenesin 600 mg 05/09/22 10:00 05/12/22 08:56 Guaifenesin 600 Mg Tablet PO 600 mg BID LILY Administration Metoprolol Tartrate 50 mg 05/09/22 09:00 05/12/22 08:56 Metoprolol Tartrate 50 Mg Tablet PO 50 mg BID LILY Administration Multivitamins 1 tab 05/10/22 17:00 05/12/22 07:57 Multivitamin Tablet PO 1 tab DAILYWM LILY Administration Oseltamivir Phosphate 75 mg 05/08/22 21:00 05/12/22 08:56 Oseltamivir 75 Mg Capsule PO 05/13/22 20:59 75 mg BID LILY Administration Prednisone 40 mg 05/08/22 21:00 05/12/22 08:56 Prednisone 20 Mg Tablet PO 05/13/22 20:59 40 mg DAILY LILY Administration Saccharomyces Boulardii 250 mg 05/09/22 17:00 05/12/22 17:51 Saccharomyces Boulardii 250 Mg Capsule PO 250 mg BIDWM LILY Administration Sodium Chloride 10 ml 05/09/22 01:00 05/12/22 17:51 Sodium Chloride Flush 0.9% 10 Ml Syringe IVP 10 ml 0100,0900,1700 LILY Administration Warfarin Sodium 0.5 mg 05/11/22 14:00 05/12/22 14:12 Warfarin 1 Mg Tablet PO 0.5 mg QDWARFARIN LILY Administration - Lab Result Fish Bone Diagrams: 05/11/22 05:28 05/12/22 05:25 - Additional Planning My Orders: My Active Orders 05/13/22 05:00 BMP - BASIC METABOLIC PANEL [CHEM] DAILYLAB Subjective - Subjective Patient Reports: Feeling Better (No O2 suppl is on now, but she is tachypneic with speaking to me and very SOB with walking to bedside commode from her bed) Objective Vital Signs: Vital Signs - 24 hr 05/11/22 05/12/22 05/12/22 21:30 00:00 07:16 Temperature 36.3 C L Heart Rate 71 67 Heart Rate [ 68 Brachial] Respiratory 18 16 15 Rate Blood Pressure Blood Pressure 144/64 H [Right Brachial artery] Blood Pressure [Right Radial artery] O2 Saturation 92 If not protocol 4 2 2 : Oxygen Flow, liters/minute 05/12/22 05/12/22 05/12/22 07:50 08:56 08:58 Temperature 36.5 C Heart Rate Heart Rate [ 70 Brachial] Respiratory 20 Rate Blood Pressure 117/50 L Blood Pressure 127/59 L [Right Brachial artery] Blood Pressure [Right Radial artery] O2 Saturation 94 95 If not protocol 2 2 : Oxygen Flow, liters/minute 05/12/22 05/12/22 05/12/22 08:59 13:11 13:13 Temperature Heart Rate Heart Rate [ Brachial] Respiratory Rate Blood Pressure Blood Pressure [Right Brachial artery] Blood Pressure [Right Radial artery] O2 Saturation 96 93 94 If not protocol 1 1 : Oxygen Flow, liters/minute 05/12/22 05/12/22 05/12/22 13:28 13:32 16:00 Temperature 36.4 C L Heart Rate 70 Heart Rate [ 72 Brachial] Respiratory 17 20 Rate Blood Pressure Blood Pressure [Right Brachial artery] Blood Pressure 115/59 L [Right Radial artery] O2 Saturation 92 92 If not protocol : Oxygen Flow, liters/minute 05/12/22 17:54 Temperature Heart Rate 78 Heart Rate [ Brachial] Respiratory 21 Rate Blood Pressure Blood Pressure [Right Brachial artery] Blood Pressure [Right Radial artery] O2 Saturation If not protocol : Oxygen Flow, liters/minute Oxygen O2 Source Room air Oxygen Flow Rate 2 I&O (Last 24 Hrs): Intake and Output Totals x24h 05/10/22 05/11/22 05/12/22 23:59 23:59 23:59 Intake Total 1560 1190 1130 Balance 1560 1190 1130 General: Alert, Oriented x3 HEENT: Mucous membr. moist/pink, Other (Hoarse) Neck: Supple, No JVD Neuro: Non Focal Cardiovascular: Regular rate, No murmurs Respiratory: Other (Clear breath sounds but diminishe air entry. Tachypneic with speaking.) Abdomen: Normal bowel sounds, Soft Extremities: No clubbing, No edema - Results Results: Laboratory Results WBC 13.3 x10^3/uL (4.8-10.8) H 05/11/22 05:28 RBC 4.42 10^6/uL (4.20-5.40) 05/11/22 05:28 Hgb 12.4 g/dL (12.0-16.0) 05/11/22 05:28 Hct 38.7 % (37.0-47.0) 05/11/22 05:28 MCV 87.6 fL (81.0-99.0) 05/11/22 05:28 MCH 28.1 pg (27.0-31.0) 05/11/22 05:28 MCHC 32.0 g/dL (32.0-36.0) 05/11/22 05:28 RDW 12.1 % (12.0-15.0) 05/11/22 05:28 Plt Count 246 10^3/uL (130-450) 05/11/22 05:28 MPV 9.6 fL (7.9-10.8) 05/11/22 05:28 Neut # (Auto) 10.3 10^3/uL (1.5-6.6) H 05/11/22 05:28 Lymph # (Auto) 1.3 10^3/uL (1.5-3.5) L 05/11/22 05:28 [place] # (Auto) 1.3 10^3/uL (0.0-1.0) H 05/11/22 05:28 Eos # (Auto) 0.0 10^3/uL (0.0-0.7) 05/11/22 05:28 Baso # (Auto) 0.0 10^3/uL (0.0-0.1) 05/11/22 05:28 Absolute Nucleated RBC 0.00 x10^3/uL 05/11/22 05:28 Total Counted 100 05/08/22 16:10 Band Neuts % (Manual) Not Reportable 05/10/22 05:53 Abnorm Lymph % (Manual) Not Reportable 05/10/22 05:53 Nucleated RBC % 0.0 /100WBC 05/11/22 05:28 Neutrophils # (Manual) Not Reportable 05/10/22 05:53 Lymphocytes # (Manual) Not Reportable 05/10/22 05:53 Monocytes # (Manual) Not Reportable 05/10/22 05:53 Eosinophils # (Manual) Not Reportable 05/10/22 05:53 Basophils # (Manual) Not Reportable 05/10/22 05:53 Differential Comment MANUAL=AUTO DIFF 05/10/22 05:53 WBC Morphology NORMAL APPEARANCE (NORMAL) 05/08/22 16:10 Platelet Estimate NORMAL (130-450,000) (NORMAL) 05/10/22 05:53 Platelet Morphology NORMAL APPEARANCE (NORMAL) 05/08/22 16:10 RBC Morph Micro Appear NORMAL APPEARANCE (NORMAL) 05/10/22 05:53 PT 23.4 secs (9.9-12.6) H 05/11/22 05:28 INR 2.2 (0.8-1.2) H 05/11/22 05:28 Sodium 134 mmol/L (135-145) L 05/12/22 05:25 Potassium 3.8 mmol/L (3.5-5.0) 05/12/22 05:25 Chloride 98 mmol/L (101-111) L 05/12/22 05:25 Carbon Dioxide 29 mmol/L (21-32) 05/12/22 05:25 Anion Gap 7.0 (6-13) 05/12/22 05:25 BUN 16 mg/dL (6-20) 05/12/22 05:25 Creatinine 0.5 mg/dL (0.4-1.0) 05/12/22 05:25 Estimated GFR (MDRD) 119 (>89) 05/12/22 05:25 Glucose 93 mg/dL (70-100) 05/12/22 05:25 Serum Osmolality 272 mOsmol/kg (280-301) L 05/09/22 03:30 Calcium 8.7 mg/dL (8.5-10.3) 05/12/22 05:25 Phosphorus 2.3 mg/dL (2.5-4.6) L 05/10/22 05:53 Total Bilirubin 0.7 mg/dL (0.2-1.0) 05/08/22 16:53 AST 20 IU/L (10-42) 05/08/22 16:53 ALT 25 IU/L (10-60) 05/08/22 16:53 Alkaline Phosphatase 52 IU/L (42-121) 05/08/22 16:53 Troponin I High Sens 3.5 ng/L (2.3-14.8) 05/08/22 16:10 B-Natriuretic Peptide 123 pg/mL (5-100) H 05/09/22 05:28 Total Protein 6.2 g/dL (6.7-8.2) L 05/08/22 16:53 Albumin 2.8 g/dL (3.2-5.5) L 05/10/22 05:53 Globulin 2.7 g/dL (2.1-4.2) 05/08/22 16:53 Albumin/Globulin Ratio 1.3 (1.0-2.2) 05/08/22 16:53 Lipase 23 U/L (22-51) 05/08/22 16:53 Urine Osmolality 699 mOsmol/kg (.) 05/09/22 03:30 Urine Sodium 121.0 mmol/L 05/09/22 03:30 Nasal Adenovirus (PCR) NOT DETECTED 05/08/22 17:52 Nasal B. parapertussis DNA (PCR) NOT DETECTED 05/08/22 17:52 Nasal Coronavir 229E PCR NOT DETECTED 05/08/22 17:52 Nasal Coronavir HKU1 PCR NOT DETECTED 05/08/22 17:52 Nasal Coronavir NL63 PCR NOT DETECTED 05/08/22 17:52 Nasal Coronavir OC43 PCR NOT DETECTED 05/08/22 17:52 Nasal Enterovir/Rhinovir PCR NOT DETECTED 05/08/22 17:52 Nasal Influenza A PCR DETECTED A 05/08/22 17:52 Nasal Influenza B PCR NOT DETECTED 05/08/22 17:52 Nasal Parainfluen 1 PCR NOT DETECTED 05/08/22 17:52 Nasal Parainfluen 2 PCR NOT DETECTED 05/08/22 17:52 Nasal Parainfluen 3 PCR NOT DETECTED 05/08/22 17:52 Nasal Parainfluen 4 PCR NOT DETECTED 05/08/22 17:52 Nasal RSV (PCR) NOT DETECTED 05/08/22 17:52 Nasal B.pertussis DNA PCR NOT DETECTED 05/08/22 17:52 Nasal C.pneumoniae (PCR) NOT DETECTED 05/08/22 17:52 Kirill Human Metapneumo PCR NOT DETECTED 05/08/22 17:52 Nasal M.pneumoniae (PCR) NOT DETECTED 05/08/22 17:52 Nasal SARS-CoV-2 (PCR) NOT DETECTED 05/08/22 17:52 Sepsis Event Note (H) - Evaluation Current Stage of Sepsis: Sepsis Possible source of Sepsis: positive: Pulmonary - Sepsis Criteria Sepsis Criteria: Recorded Respiratory Rate greater than 20, WBC count greater than 12,000 or less than 4000
[2022-05-12] MEDS: ATORVASTATIN 10 MG TABLET PO SCH (21:06)
[2022-05-12] MEDS: BENZONATATE 100 MG CAPSULE PO PRN (21:06)
[2022-05-13] MEDS: SODIUM CHLORIDE FLUSH 0.9% 10 ML SYRINGE IVP SCH ×2 (00:50→08:29)
[2022-05-13] MEDS: BUDESONIDE 0.5 MG/2 ML NEB INH SCH (07:14)
[2022-05-13] MEDS: IPRATROPIUM/ALBUTEROL 3 ML NEB INH SCH ×3 (07:14→16:20)
[2022-05-13 07:25] LABS: CALCIUM 8.7 mg/dL (8.5-10.3); CREATININE 0.5 mg/dL (0.4-1.0); POTASSIUM 3.7 mmol/L (3.5-5.0)
[2022-05-13 07:38] LABS: BASOPHILS % (AUTO) 0.2 %; EOSINOPHILS % (AUTO) 0.1 %; HCT - HEMATOCRIT 38.6 % (37.0-47.0); HGB - HEMOGLOBIN 12.5 g/dL (12.0-16.0); LYMPHOCYTES # (AUTO) 1.4 10^3/uL (1.5-3.5); LYMPHOCYTES % (AUTO) 10.2 %; MEAN CORPUSCULAR HEMOGLOBIN 28.3 pg (27.0-31.0); MEAN CORPUSCULAR HGB CONC 32.4 g/dL (32.0-36.0); MEAN CORPUSCULAR VOLUME 87.3 fL (81.0-99.0); MEAN PLATELET VOLUME 9.2 fL (7.9-10.8); MONOCYTES # (AUTO) 1.3 10^3/uL (0.0-1.0); MONOCYTES % (AUTO) 9.3 %; NEUTROPHILS # (AUTO) 10.9 10^3/uL (1.5-6.6); NEUTROPHILS % (AUTO) 77.7 %; PLT - PLATELET COUNT 252 10^3/uL (130-450); RED BLOOD COUNT 4.42 10^6/uL (4.20-5.40); RED CELL DISTRIBUTION WIDTH 12.1 % (12.0-15.0); WHITE BLOOD COUNT 14.1 x10^3/uL (4.8-10.8)
[2022-05-13] MEDS: predniSONE 20 MG TABLET PO SCH (08:26)
[2022-05-13] MEDS: METOPROLOL TARTRATE 50 MG TABLET PO SCH (08:26)
[2022-05-13] MEDS: OSELTAMIVIR 75 MG CAPSULE PO SCH (08:26)
[2022-05-13] MEDS: guaiFENesin 600 MG TABLET PO SCH (08:26)
[2022-05-13] MEDS: SACCHAROMYCES BOULARDII 250 MG CAPSULE PO SCH (08:26)
[2022-05-13] MEDS: MULTIVITAMIN TABLET PO SCH (08:26)
[2022-05-13 08:32] LABS: INR 4.4 (0.8-1.2); PT - PROTHROMBIN TIME 44.9 secs (9.9-12.6)
[2022-05-13] MEDS: WARFARIN 1 MG TABLET PO SCH (12:21)
--- NOTE | 2022-05-13 14:33 | Discharge Plan ---
Discharge Plan Problem Reviewed?: Yes Disposition: Home, Self Care Condition: Fair Diet: Cardiac Activity Restrictions: Activity as Tolerated Shower Restrictions: No Driving Restrictions: No Assistance Devices: Walker Weight Bearing: Full Weight Health Concerns: You were hospitalized to treat shortness of breath, and a very low oxygen level that was caused by a COPD exacerbation from influenza and we found you to have a pneumonia. You had a very low serum sodium level and therefore your Lasix was not given for several days. You have completed a course of antibiotics for the pneumonia. You are being discharged home and advised to resume all your usual pre-hospital medications. Since you have Prednisone tablets at home, the dose should now be: 40 mg for 1 week, 30 mg for 1 week, 20 mg for 1 week, then ask your provider how you should further taper down the Prednisone. Your INR was excessively high several times while here (caused by being on antibiotics), so it was on hold. You may resume your usual Warfarin dose on Friday, May 15. Continue with your INR monitoring as you have always done. You were tested to see if you need a new home oxygen order and you do: The oxygen company will deliver oxygen to your home, which you need to set at 3 L/min and use it when you are exerting yourself. You do not need to use it at rest. You should see your primary care provider in the next 5 to 10 days for hospital follow-up visit. You would benefit from attending pulmonary rehab here at the hospital on the ground floor. This has to be ordered by your doctor. Plan of Treatment: As above. Care Goals: Improvement in symptoms and stabilization are the goals. Assessment: The patient understands and is agreeable with the plan. Additional Instructions or Follow Up instructions: If you have new or worsening symptoms, call your PCP for advice or come to the ER. Follow-Up Care: [facility] No Smoking: If you smoke, Please STOP! Call for help. Follow-up with: Manisha Edward PA-C [Primary Care Provider] -
--- NOTE | 2022-05-13 14:40 | DISCHARGE SUMMARY ---
Discharge Summary Admit Date: 05/08/22 Discharge Date: 05/13/22 Discharging Provider: Dr Sol Haynes Primary Care Provider: ARTURO Edward Code Status: Attempt Resuscitation Condition at Discharge: Fair Discharge Disposition: 01 Home, Self Care - HPI History of Present Illness: This is a 77 yo female with hx of COPD, CHF, CAD s/p CABG, HTN, A-fib on [place] and H=yperlipidemia, who presented to the ED with cc of worsening SOB and cough, she was recently DC from this ED for same symptoms, DC with Doxycycline and oral steroid. Today her WBC was 20K, tachypneic, septic, CXR showed PNA picture, Flu A +, also INR was supratherapeutic above 10, but no signs of bleeding. For her acute exacerbation of COPD, Influenza infection and pneumonia, this Hospitalist was contacted to admit the pt for further management. - HOSPITAL COURSE Hospital Course: (1) Acute respiratory failure with hypoxia This patient was hypoxic on room air at admission, saturation was 87%. The ca use appeared to be a community-acquired pneumonia plus a COPD exacerbation from influenza A. She was started on 2 L O2 and this was slowly weaned down. She was noted to be adequately saturating on no supplemental oxygen but was tachypneic with speaking and just pivoting out of bed. On the day of discharge she was tested to see if she needed home oxygen. The patient was not hypoxic at rest; O2 sat was 92% on room air. With ambulation on room air, her O2 sat was 87%. On 2 L/min with ambulation, her O2 sat was 88%, and finally on 3 L/min with ambulation her O2 sats were 91%. I am ordering home O2, room air at rest but to be on 3 L/min with exertion, to treat her COPD and hypoxemia. (2) COPD exacerbation She had an acute exacerbation of COPD due to CAP and Ibfluenza A infection, despite having been on Doxycycline and Prednisone 20 mg daily recently as an outpt. Prednisone dose was increased to 40 mg daily and she was put on Duoneb q6h and q4h prn, Mucinex BID and Tessalon Perles prn. She was also on empiric antibiotics and Tamiflu was started. Each day her wheezing improved. She was able to ambulate 60 feet but needed a walker on day of discharge. She would benefit from attending Pulmonary Rehab here on the ground floor; this needs to be ordered by PCP. At discharge, she was advised to now use Prednisone 40 mg daily for 1 week, then 30 mg daily for 1 week, then 20 mg daily for 1 week, then to ask her PCP how to further taper this down. (3) Influenza A infection Tamiflu, Mucinex and Tessalon Perles were ordered (4) Community acquired pneumonia CXR showed right base opacity. She was put on empiric Rocephin and Azithromycin. She had clear lung field exam on day of discharge. (5) Hyponatremia Na was 127 at adm>> 128>> 133>> 133>> 134. This was likely from prednisone use and free water retention, or possibly from her Lasix use causing excessive salt depletion. Her serum osmolality came back low, urine osmolality normal, and urinary sodium concentration (appropriately) low, not high (as with Lasix use). No iv saline was ordered but no Lasix was resumed, allowing her fluids to equilibrate. She had no edema and did not need Lasix while here. She can resume this after discharge. (6) Paroxysmal A-fib HR was stable and she was in NSR. We continued her Metoprolol Tartrate 50 twice daily. INR was followed and Coumadin dosed accordingly. (7) Hx CAD We continued her usual beta-yanira, statin and other home meds (8) Elevated INR INR of >10 was likely related to antibx use at home. She had no signs of bleeding. She got vit K 5mg oral x1. INR was followed and Coumadin dosed accordingly. Her INR was 4.4 on the day of discharge. No Coumadin was given on that day, 05/13/2022, she was advised to restart Coumadin in 2 days on 05/15/2022, and monitor INR as she did previously. - ALLERGIES Allergies/Adverse Reactions: Allergies Allergy/AdvReac Type Severity Reaction Status Date / Time lidocaine Allergy Severe Dizziness Verified 05/08/22 15:54 - MEDICATIONS Home Medications: Ambulatory Orders Medication Instructions Recorded Confirmed Simvastatin [Zocor] 20 mg PO QPM 01/29/13 05/09/22 Albuterol Sulf [Ventolin Hfa 2 puffs INH Q4H PRN 06/04/16 05/09/22 Inhaler] Cetirizine [ZyrTEC] 10 mg PO DAILY 06/04/16 05/09/22 Fluticasone [Flonase] 1 spray MACARIO BID 06/04/16 05/09/22 Ipratropium/Albuterol [Duoneb] 3 ml INH Q4H PRN 06/04/16 05/09/22 Warfarin [Coumadin] 0.5 mg PO DAILY 06/04/16 05/09/22 Tolterodine [Detrol LA] 4 mg PO DAILY 01/16/19 05/09/22 amLODIPine [Norvasc] 5 mg PO ONCE 01/16/19 05/09/22 Doxycycline Hyclate 100 mg PO BID #14 cap 05/02/22 05/09/22 Carvedilol [Coreg] 25 mg PO BID 05/09/22 05/09/22 Cholecalciferol (Vitamin D3) 125 mcg PO DAILY 05/09/22 05/09/22 [Vitamin D3] Fluticasone/Salmeterol [Advair 1 inh PO BID 05/09/22 05/09/22 250-50 Diskus] Furosemide [Lasix] 20 mg PO DAILY 05/09/22 05/09/22 Levothyroxine Sodium 50 mcg PO DAILY 05/09/22 05/09/22 [Levothyroxine] Losartan [Cozaar] 50 mg PO DAILY 05/09/22 05/09/22 Montelukast [Singulair] 10 mg PO QPM 05/09/22 05/09/22 Potassium Chloride [Klor-Con 10] 10 meq PO DAILY 05/09/22 05/09/22 Spironolactone [Aldactone] 25 mg PO DAILY 05/09/22 05/09/22 predniSONE [Deltasone] 20 - 40 mg PO DAILY 05/09/22 05/09/22 - PHYSICAL EXAM AT DISCHARGE General Appearance: positive: No acute distress, Alert Eyes Bilateral: positive: Normal inspection, EOMI ENT: positive: No signs of dehydration, Other (Voice is hoarse) Neck: positive: Nml inspection, No JVD Respiratory: positive: Breath sounds nml (Clearly lung young but lung sounds are diminished.) Cardiovascular: positive: Regular rate & rhythm, No murmur Abdomen: positive: Non-tender, Nml bowel sounds, No distention Skin: positive: Warm, Dry Extremities: positive: Non-tender, No pedal edema Neurologic/Psychiatric: positive: Oriented x3, Motor nml - LABS Result Diagrams: 05/13/22 07:00 05/13/22 07:00 - DIAGNOSTIC IMAGING Diagnostic Imaging Results: Final report reviewed - SEPSIS Possible source of Sepsis: Pulmonary Sepsis Criteria: Recorded Respiratory Rate greater than 20, WBC count greater than 12,000 or less than 4000 - FOLLOW UP Follow Up: See PCP in the next 5 to 10 days for hospital follow-up visit, check how she is using her new oxygen at home, place a referral for attending Pulmonary Rehab. - TIME SPENT Time Spent in Discharge (Minutes): 45
[2022-05-13 15:44] VITALS: BP 133/64
== END 2022-05-13 16:33 | disposition home or self-care (01) | DRG 871 ==
LOC: ED 15:42 → MS2 19:29
PROVIDERS: ADMIT Hospitalist; ATTEND Internal Medicine
DX: A41.9 Sepsis, unspecified organism (principal); J10.00 Influenza due to other identified influenza virus with unspecified type of pneumonia; R09.02 Hypoxemia; J96.01 Acute respiratory failure with hypoxia; Z20.822 Contact with and (suspected) exposure to COVID-19; J44.9 Chronic obstructive pulmonary disease, unspecified; I10 Essential (primary) hypertension; I48.91 Unspecified atrial fibrillation; J18.9 Pneumonia, unspecified organism; J44.0 Chronic obstructive pulmonary disease with (acute) lower respiratory infection; J44.1 Chronic obstructive pulmonary disease with (acute) exacerbation; E78.00 Pure hypercholesterolemia, unspecified; Z95.0 Presence of cardiac pacemaker; R53.1 Weakness; D72.829 Elevated white blood cell count, unspecified; E87.1 Hypo-osmolality and hyponatremia; I48.0 Paroxysmal atrial fibrillation; I25.10 Atherosclerotic heart disease of native coronary artery without angina pectoris; R79.1 Abnormal coagulation profile; I11.0 Hypertensive heart disease with heart failure; I50.9 Heart failure, unspecified; T36.95XA Adverse effect of unspecified systemic antibiotic, initial encounter; E78.5 Hyperlipidemia, unspecified; Z79.899 Other long term (current) drug therapy; Z79.01 Long term (current) use of anticoagulants; Z95.1 Presence of aortocoronary bypass graft
CPT/HCPCS: 36415; 71045; 80048; 80053; 80069; 83690; 83880; 83930; 83935; 84300; 84484; 85025; 85610; 87040; 87633; 93005; 94640; 94761; 96365; 96367; 97161; 99285; A9270; J7512; J7626

== ENCOUNTER → 2022-05-24 | Outpatient (CLI) | payer MEDICARE, OTHER | LOC: LAB.WCP 08:00 | PROVIDERS: ATTEND Physician Assistant | DX: Z79.01 Long term (current) use of anticoagulants (principal); I48.91 Unspecified atrial fibrillation ==

== ENCOUNTER 2022-06-13 11:32 | Outpatient (CLI) | payer MEDICARE, OTHER ==
[2022-06-13 11:57] LABS: BASOPHILS # (AUTO) 0.1 10^3/uL (0.0-0.1); BASOPHILS % (AUTO) 0.8 %; EOSINOPHILS # (AUTO) 0.1 10^3/uL (0.0-0.7); EOSINOPHILS % (AUTO) 1.4 %; HCT - HEMATOCRIT 36.6 % (37.0-47.0); HGB - HEMOGLOBIN 11.2 g/dL (12.0-16.0); LYMPHOCYTES # (AUTO) 1.2 10^3/uL (1.5-3.5); LYMPHOCYTES % (AUTO) 18.7 %; MEAN CORPUSCULAR HEMOGLOBIN 28.1 pg (27.0-31.0); MEAN CORPUSCULAR HGB CONC 30.6 g/dL (32.0-36.0); MEAN PLATELET VOLUME 9.4 fL (7.9-10.8); MONOCYTES # (AUTO) 0.8 10^3/uL (0.0-1.0); NEUTROPHILS # (AUTO) 4.2 10^3/uL (1.5-6.6); NEUTROPHILS % (AUTO) 66.8 %; PLT - PLATELET COUNT 208 10^3/uL (130-450); RED BLOOD COUNT 3.98 10^6/uL (4.20-5.40); RED CELL DISTRIBUTION WIDTH 12.6 % (12.0-15.0); WHITE BLOOD COUNT 6.4 x10^3/uL (4.8-10.8)
[2022-06-13 12:13] LABS: ALBUMIN/GLOBULIN RATIO 1.5 (1.0-2.2); BILIRUBIN,TOTAL 0.9 mg/dL (0.2-1.0); CALCIUM 9.2 mg/dL (8.5-10.3); CREATININE 0.7 mg/dL (0.4-1.0); POTASSIUM 4.7 mmol/L (3.5-5.0); TOTAL PROTEIN 6.7 g/dL (6.7-8.2)
== END 2022-06-13 11:33 | disposition home or self-care (01) ==
LOC: LAB 11:32
PROVIDERS: ATTEND Physician Assistant Medical
DX: J18.9 Pneumonia, unspecified organism (principal)
CPT/HCPCS: 36415; 80053; 85025

== ENCOUNTER 2022-06-18 11:18 | Outpatient (CLI) | payer MEDICARE, OTHER ==
[2022-06-18 13:21] LABS: FECAL OCCULT BLOOD (FIT) POSITIVE (NEGATIVE)
== END 2022-06-18 11:19 | disposition home or self-care (01) ==
LOC: LAB.R 11:18
PROVIDERS: ATTEND Family Medicine
DX: D64.9 Anemia, unspecified (principal)
CPT/HCPCS: 82274

== ENCOUNTER 2022-08-14 10:56 | Outpatient (CLI) | payer MEDICARE, OTHER ==
[2022-08-14 12:03] LABS: FERRITIN 21.6 ng/mL (11.0-306.8)
[2022-08-14 12:05] LABS: CALCIUM 9.6 mg/dL (8.5-10.3); CREATININE 0.6 mg/dL (0.4-1.0)
== END 2022-08-14 10:57 | disposition home or self-care (01) ==
LOC: LAB 10:56
PROVIDERS: ATTEND Family Medicine
DX: D64.9 Anemia, unspecified (principal); E87.1 Hypo-osmolality and hyponatremia
CPT/HCPCS: 36415; 80048; 82607; 82728; 83540; 83930; 84300; 84466

== ENCOUNTER 2022-09-17 09:21 | Day surgery (SDC) | payer MEDICARE, OTHER ==
--- NOTE | 2022-09-17 09:42 | ANESTHESIA ---
Pre-Anesthesia VS, & Labs - Diagnosis positive fit test - Procedure colonoscopy Height: 5 ft 3 in - NPO Other - Is Patient ?: No Home Medications and Allergies Home Medications: Ambulatory Orders Acetaminophen [Tylenol] 500 mg PO Q4-6H PRN 09/10/22 Apixaban [Eliquis] 5 mg PO BID 09/10/22 Cyanocobalamin (Vitamin B-12) [Vitamin B-12] 1,000 mcg PO DAILY 09/10/22 Simvastatin [Zocor] 20 mg PO QPM 01/29/13 Albuterol Sulf [Ventolin Hfa Inhaler] 2 puffs INH Q4H PRN 06/04/16 Cetirizine [ZyrTEC] 10 mg PO DAILY PRN 06/04/16 Fluticasone [Flonase] 1 spray MACARIO BID PRN 06/04/16 Ipratropium/Albuterol [Duoneb] 3 ml INH Q4H PRN 06/04/16 Tolterodine [Detrol LA] 4 mg PO DAILY 01/16/19 amLODIPine [Norvasc] 5 mg PO ONCE 01/16/19 Carvedilol [Coreg] 25 mg PO BID 05/09/22 Cholecalciferol (Vitamin D3) [Vitamin D3] 2,000 unit PO DAILY 05/09/22 Fluticasone/Salmeterol [Advair 250-50 Diskus] 1 inh PO BID 05/09/22 Furosemide [Lasix] 20 mg PO DAILY 05/09/22 Levothyroxine Sodium [Levothyroxine] 50 mcg PO DAILY 05/09/22 Losartan [Cozaar] 50 mg PO DAILY 05/09/22 Montelukast [Singulair] 10 mg PO QPM 05/09/22 Potassium Chloride [Klor-Con 10] 10 meq PO DAILY 05/09/22 Spironolactone [Aldactone] 25 mg PO DAILY 05/09/22 Acetaminophen [Tylenol] 500 mg PO Q4-6H PRN 09/10/22 Apixaban [Eliquis] 5 mg PO BID 09/10/22 Cyanocobalamin (Vitamin B-12) [Vitamin B-12] 1,000 mcg PO DAILY 09/10/22 Allergies/Adverse Reactions: Allergies Allergy/AdvReac Type Severity Reaction Status Date / Time lidocaine Allergy Severe Dizziness Verified 09/10/22 12:13 Anes History & Medical History - Anesthetic History Anesthesia Complications: reports: No previous complications - Medical History Cardiovascular: reports: Congestive heart failure, Hypertension, High cholesterol, Coronary artery disease, [place], Atrial fibrillation Pulmonary: reports: Asthma, COPD Gastrointestinal: reports: None Urinary: reports: None Neuro: reports: None Musculoskeletal: reports: Osteoarthritis, Osteoporosis Endocrine/Autoimmune: reports: HyPOthyroidism Blood Disorders: reports: None Skin: reports: None Smoking Status: Former smoker - Surgical History General: reports: Cholecystectomy, Colonoscopy Eyes Ears Nose Throat (EENT): reports: Cataracts, Tonsil/Adenoidectomy Cardiothoracic: reports: CABG, Pacemaker, Other Gynecologic: reports: Hysterectomy Orthopedic: reports: Arthroscopic surgery, Carpal Tunnel surgery Exam General: Alert, Oriented x3, Cooperative Dental: Dentures full Upper, Dentures full Lower Mouth Opening: Greater than 4 Fingerbreadths Neck Mobility: Normal Mallampati classification: II Thyromental Distance: greater than 6 cm Respiratory: Lungs clear Cardiovascular: Regular rate Plan Anesthesia Type: Total IV Consent for Procedure(s) Verified and Reviewed: Yes Code Status: Attempt Resuscitation ASA classification: 3-Severe systemic disease Is this case an emergency?: No
[2022-09-17] MEDS ORDERED: PROPOFOL 500 MG/50 ML 500 MG/50 ML VIAL ONE (09:46)
[2022-09-17] MEDS ORDERED: LACTATED RINGERS 1,000 ML IV ONE (09:56)
[2022-09-17] MEDS ORDERED: LACTATED RINGERS 500 ML IV ONE (11:47)
[2022-09-17 12:28] VITALS: BP 120/70
--- NOTE | 2022-09-17 12:52 | ANESTHESIA POST OP EVALUATION ---
Anesthesia Post Eval - Post Anesthesia Eval Vitals: Last Vital Signs Temp 36.2 C L 09/17/22 12:27 Pulse 69 09/17/22 12:27 Resp 16 09/17/22 12:27 BP 120/70 09/17/22 12:27 Pulse Ox 99 09/17/22 12:27 O2 Flow Rate
== END 2022-09-17 09:22 | disposition home or self-care (01) ==
LOC: SDS 09:21
PROVIDERS: ATTEND Surgery
PROC: 0DBE8ZZ Excision of Large Intestine, Via Natural or Artificial Opening Endoscopic (ICD-10-PCS; 2022-09-17)
PROC: 0DBL8ZZ Excision of Transverse Colon, Via Natural or Artificial Opening Endoscopic (ICD-10-PCS; 2022-09-17)
PROC: 0DBN8ZZ Excision of Sigmoid Colon, Via Natural or Artificial Opening Endoscopic (ICD-10-PCS; 2022-09-17)
PROC: 0DBM8ZZ Excision of Descending Colon, Via Natural or Artificial Opening Endoscopic (ICD-10-PCS; 2022-09-17)
PROC: 0DBK8ZZ Excision of Ascending Colon, Via Natural or Artificial Opening Endoscopic (ICD-10-PCS; principal; 2022-09-17 10:30)
DX: Z12.11 Encounter for screening for malignant neoplasm of colon (principal); R19.5 Other fecal abnormalities; R63.4 Abnormal weight loss; D12.2 Benign neoplasm of ascending colon; D12.4 Benign neoplasm of descending colon; D12.3 Benign neoplasm of transverse colon; K63.5 Polyp of colon; D12.5 Benign neoplasm of sigmoid colon; D12.6 Benign neoplasm of colon, unspecified; K57.30 Diverticulosis of large intestine without perforation or abscess without bleeding; J44.9 Chronic obstructive pulmonary disease, unspecified; I25.10 Atherosclerotic heart disease of native coronary artery without angina pectoris; I25.2 Old myocardial infarction; I48.91 Unspecified atrial fibrillation; Z95.0 Presence of cardiac pacemaker; Z87.891 Personal history of nicotine dependence
CPT/HCPCS: 45380; 45385; J7120

== ENCOUNTER 2022-11-14 11:35 | Outpatient (CLI) | payer MEDICARE, OTHER ==
[2022-11-14 11:49] LABS: BASOPHILS # (AUTO) 0.1 10^3/uL (0.0-0.1); BASOPHILS % (AUTO) 0.8 %; EOSINOPHILS # (AUTO) 0.1 10^3/uL (0.0-0.7); EOSINOPHILS % (AUTO) 1.1 %; HCT - HEMATOCRIT 36.8 % (37.0-47.0); HGB - HEMOGLOBIN 11.7 g/dL (12.0-16.0); LYMPHOCYTES # (AUTO) 1.1 10^3/uL (1.5-3.5); LYMPHOCYTES % (AUTO) 17.2 %; MEAN CORPUSCULAR HEMOGLOBIN 27.7 pg (27.0-31.0); MEAN CORPUSCULAR HGB CONC 31.8 g/dL (32.0-36.0); MEAN CORPUSCULAR VOLUME 87.2 fL (81.0-99.0); MEAN PLATELET VOLUME 10.1 fL (7.9-10.8); MONOCYTES # (AUTO) 0.4 10^3/uL (0.0-1.0); MONOCYTES % (AUTO) 6.3 %; NEUTROPHILS # (AUTO) 4.8 10^3/uL (1.5-6.6); NEUTROPHILS % (AUTO) 74.4 %; PLT - PLATELET COUNT 215 10^3/uL (130-450); RED BLOOD COUNT 4.22 10^6/uL (4.20-5.40); RED CELL DISTRIBUTION WIDTH 12.1 % (12.0-15.0); WHITE BLOOD COUNT 6.4 x10^3/uL (4.8-10.8)
[2022-11-14 12:06] LABS: ALBUMIN 4.2 g/dL (3.2-5.5); ALBUMIN/GLOBULIN RATIO 1.7 (1.0-2.2); ALKALINE PHOSPHATASE 60 IU/L (42-121); ALT ALANINE AMINOTRANSFERASE 16 IU/L (10-60); AST ASPARTATE AMINOTRANSFERASE 21 IU/L (10-42); BUN - BLOOD UREA NITROGEN 18 mg/dL (6-20); CALCIUM 9.1 mg/dL (8.5-10.3); CARBON DIOXIDE - CO2 25 mmol/L (21-32); CHLORIDE 100 mmol/L (101-111); CHOLESTEROL 118 mg/dL; CREATININE 0.7 mg/dL (0.4-1.0); GFR - MDRD 81 (>89); GLUCOSE 144 mg/dL (70-100); HDL CHOLESTEROL 60 mg/dL; LDL CHOLESTEROL,CALCULATED 46 mg/dL; LDL/HDL RATIO 0.8 (<4.4); POTASSIUM 3.9 mmol/L (3.5-5.0); SODIUM 132 mmol/L (135-145); TOTAL PROTEIN 6.7 g/dL (6.7-8.2); TRIGLYCERIDES 58 mg/dL; VLDL CHOLESTEROL 12 mg/dL
== END 2022-11-14 11:36 | disposition home or self-care (01) ==
LOC: LAB 11:35
PROVIDERS: ATTEND Physician Assistant Medical
DX: E78.5 Hyperlipidemia, unspecified (principal); E53.8 Deficiency of other specified B group vitamins
CPT/HCPCS: 36415; 80053; 80061; 82607; 83721; 85025

== ENCOUNTER 2022-12-13 10:46 | Emergency (ER) | payer MEDICARE, OTHER ==
[2022-12-13 11:04] VITALS: BP 90/52
--- NOTE | 2022-12-13 13:06 | XRAY Report ---
PROCEDURE: Forearm RT INDICATIONS: pain; no trauma TECHNIQUE: 2 views of the forearm were acquired. COMPARISON: None FINDINGS: Bones: No fractures or dislocations. No suspicious bony lesions. Soft tissues: No suspicious soft tissue calcifications or masses. IMPRESSION: No visualized acute fracture or dislocation. However, occult injury cannot be excluded. Recommend agustín rt interval imaging follow-up in 7-10 days as clinically indicated for additional evaluation. Reviewed by: Lizbeth Guevara MD on 12/13/2022 1:04 PM PDT Approved by: Lizbeth Guevara MD on 12/13/2022 1:04 PM PDT Station ID: [id number]
--- NOTE | 2022-12-13 13:07 | XRAY Report ---
PROCEDURE: Hand 2 View RT INDICATIONS: pain, no trauma TECHNIQUE: 2 views of the hand(s) acquired. COMPARISON: None. FINDINGS: Bones: No fractures or dislocations. No suspicious bony lesions. Prominent first CMC arthritic ch pamela is present. Skull chondral sclerosis as well as periarticular lucencies are present. Moderate to severe scattered IP joint narrowing most severe at the second and third DIP joints. Radiocarpal narr owing is present. Soft tissues: No suspicious soft tissue calcifications or masses. IMPRESSION: Prominent arthritic change as above. First CMC arthritic narrowing is present with periarticular luce ncy which may represent subchondral degenerative cyst or an appropriate clinical circumstances erosio n. Reviewed by: Lizbeth Guevara MD on 12/13/2022 1:05 PM PDT Approved by: Lizbeth Guevara MD on 12/13/2022 1:05 PM PDT Station ID: [id number]
--- NOTE | 2022-12-13 13:28 | ED Physician Documentation ---
PD HPI UPPER EXT INJURY - Stated complaint Stated Complaint: RT ARM PX - Chief complaint Chief Complaint: Ext Problem - History obtained from History obtained from: Patient - Additonal information Additional information: Patient is a 77-year-old female presenting for evaluation of right hand pain that shoots into her Forearm that has been present for the past 2 days. Patient denies any known falls or other injuries but states that she has been doing more in her home including trying to get rid of clutter and does help care for her including helping him stand up by using her arm to pull him.She does take a blood thinner for history of A-fib which she has been compliant with. Denies fever, chest pain, difficulty breathing.She has been using Tylenol with minimal improvement. 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 : None HEENT: Chronic vision loss, Chronic sinusitis Psych: None Musculoskeletal: Osteoarthritis, Osteoporosis Derm: None - Past Surgical History Past Surgical History: Yes General: Cholecystectomy, Colonoscopy Ortho: Arthroscopic surgery, Carpal Tunnel surgery /BUSINESS OFFICE COORDINATOR: Hysterectomy Cardiovascular: CABG, Pacemaker, Other HEENT: Cataracts, Tonsil/Adenoidectomy - Present Medications Home Medications: Ambulatory Orders Medication Instructions Recorded Confirmed Simvastatin [Zocor] 20 mg PO QPM 01/29/12/13/22 Albuterol Sulf [Ventolin Hfa 2 puffs INH Q4H PRN 06/04/16 12/13/22 Inhaler] Cetirizine [ZyrTEC] 10 mg PO DAILY PRN 06/04/16 12/13/22 Fluticasone [Flonase] 1 spray MACARIO BID PRN 06/04/16 12/13/22 Ipratropium/Albuterol [Duoneb] 3 ml INH Q4H PRN 06/04/16 12/13/22 Tolterodine [Detrol LA] 4 mg PO DAILY 01/16/19 12/13/22 amLODIPine [Norvasc] 5 mg PO ONCE 01/16/19 12/13/22 Carvedilol [Coreg] 25 mg PO BID 05/09/22 12/13/22 Cholecalciferol (Vitamin D3) 2,000 unit PO DAILY 05/09/22 12/13/22 [Vitamin D3] Fluticasone/Salmeterol [Advair 1 inh PO BID 05/09/22 12/13/22 250-50 Diskus] Furosemide [Lasix] 20 mg PO DAILY 05/09/22 12/13/22 Levothyroxine Sodium 50 mcg PO DAILY 05/09/22 12/13/22 Losartan [Cozaar] 50 mg PO DAILY 05/09/22 12/13/22 Montelukast [Singulair] 10 mg PO QPM 05/09/22 12/13/22 Potassium Chloride [Klor-Con 10] 10 meq PO DAILY 05/09/22 12/13/22 Spironolactone [Aldactone] 25 mg PO DAILY 05/09/22 12/13/22 Acetaminophen [Tylenol] 500 mg PO Q4-6H PRN 09/10/22 12/13/22 Apixaban [Eliquis] 5 mg PO BID 09/10/22 12/13/22 Cyanocobalamin (Vitamin B-12) 1,000 mcg PO DAILY 09/10/22 12/13/22 [Vitamin B-12] - Allergies Allergies/Adverse Reactions: Allergies Allergy/AdvReac Type Severity Reaction Status Date / Time lidocaine Allergy Severe Dizziness Verified 09/10/22 12:13 - Social History Does the pt smoke?: No Smoking Status: Former smoker Does the pt drink ETOH?: No Does the pt have substance abuse?: No - Immunizations Immunizations are current?: Yes - POLST Patient has POLST: No PD ED PE NORMAL - General General: Alert and oriented X 3, No acute distress, Well developed/nourished - HEENT HEENT: Atraumatic - Neck Neck: Supple, no meningeal sign - Cardiac Cardiac: RRR, Strong equal pulses - Respiratory Respiratory: No respiratory distress - Extremities Extremities: No deformity, No edema, Other (Mild tenderness to dorsum of right hand particularly over the fourth and fifth metacarpals; No tenderness to forearm, good range of motion at right elbow and shoulder, reports mild tenderness with range of motion at right wrist, sensation grossly intact, 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 No specific trauma but she has been doing more at home including decluttering her house and also aids in caring for her Occluding helping pull him up to stand.Mild tenderness noted over right hand. Good range of motion at all joints neurovascular intact. No findings to suggest cellulitis or infection.X-rays of the forearm and hand were obtained from triage which I reviewed and see no fracture or dislocation. She does have significant arthritic changes in the hand. I suspect that her symptoms are still likely musculoskeletal in etiology and have recommended conservative treatment with Velcro brace for some support as well as continued anti-inflammatories and close follow-up with PCP. She has a appointment already scheduled for Friday. Patient is counseled on concerning symptoms to return for. Departure - Departure Disposition: Home, Self Care Clinical Impression: Right arm pain Condition: Stable Instructions: ED Sprain Hand Comments: X-rays do not show any broken or out of place bones but you do have a significant amount of arthritis in your hand. This could be flared up due to recent activity. We have applied a brace to the right wrist which may help with stability and support for the arm.I would continue with acetaminophen, ice and elevation and rest. Please try and limit any movements that may cause pain. Please follow-up with your PCP on Friday as already scheduled. Return to the ER if you develop any worsening symptoms such as rash or fever. Discharge Date/Time: 12/13/22 13:37
== END 2022-12-13 13:37 | disposition home or self-care (01) ==
LOC: ED 10:46
DX: M79.641 Pain in right hand (principal); M19.041 Primary osteoarthritis, right hand; Z87.891 Personal history of nicotine dependence
CPT/HCPCS: 99283

== ENCOUNTER 2023-01-06 18:21 | Emergency (ER) | payer MEDICARE, OTHER ==
[2023-01-06 18:41] VITALS: BP 127/60
--- NOTE | 2023-01-06 19:36 | ED Physician Documentation ---
History of Present Illness - Stated complaint Stated Complaint: LT HAND LAC - Chief complaint Chief Complaint: Laceration - Additonal information Additional information: 77-year-old female here for evaluation of a left hand laceration sustained when she tripped in her garden and caught her fall on a wine barrel. She has a superficial laceration on the palm between the small finger and ring finger. She is anticoagulated on Eliquis secondary to a history of atrial fib. She did not strike her head, lose consciousness or fall. 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: None : None HEENT: Chronic vision loss, Chronic sinusitis Psych: None Musculoskeletal: Osteoarthritis, Osteoporosis Derm: None - Past Surgical History Past Surgical History: Yes General: Cholecystectomy, Colonoscopy Ortho: Arthroscopic surgery, Carpal Tunnel surgery /PAEDIATRICIAN: Hysterectomy Cardiovascular: CABG, Pacemaker, Other HEENT: Cataracts, Tonsil/Adenoidectomy - Present Medications Home Medications: Ambulatory Orders Medication Instructions Recorded Confirmed Simvastatin [Zocor] 20 mg PO QPM 01/29/13 12/13/22 Albuterol Sulf [Ventolin Hfa 2 puffs INH Q4H PRN 06/04/16 12/13/22 Inhaler] Cetirizine [ZyrTEC] 10 mg PO DAILY PRN 06/04/16 12/13/22 Fluticasone [Flonase] 1 spray MACARIO BID PRN 06/04/16 12/13/22 Ipratropium/Albuterol [Duoneb] 3 ml INH Q4H PRN 06/04/16 12/13/22 Tolterodine [Detrol LA] 4 mg PO DAILY 01/16/19 12/13/22 amLODIPine [Norvasc] 5 mg PO ONCE 01/16/19 12/13/22 Carvedilol [Coreg] 25 mg PO BID 05/09/22 12/13/22 Cholecalciferol (Vitamin D3) 2,000 unit PO DAILY 05/09/22 12/13/22 [Vitamin D3] Fluticasone/Salmeterol [Advair 1 inh PO BID 05/09/22 12/13/22 250-50 Diskus] Furosemide [Lasix] 20 mg PO DAILY 05/09/22 12/13/22 Levothyroxine Sodium 50 mcg PO DAILY 05/09/22 12/13/22 Losartan [Cozaar] 50 mg PO DAILY 05/09/22 12/13/22 Montelukast [Singulair] 10 mg PO QPM 05/09/22 12/13/22 Potassium Chloride [Klor-Con 10] 10 meq PO DAILY 05/09/22 12/13/22 Spironolactone [Aldactone] 25 mg PO DAILY 05/09/22 12/13/22 Acetaminophen [Tylenol] 500 mg PO Q4-6H PRN 09/10/22 12/13/22 Apixaban [Eliquis] 5 mg PO BID 09/10/22 12/13/22 Cyanocobalamin (Vitamin B-12) 1,000 mcg PO DAILY 09/10/22 12/13/22 [Vitamin B-12] - Allergies Allergies/Adverse Reactions: Allergies Allergy/AdvReac Type Severity Reaction Status Date / Time lidocaine Allergy Severe Dizziness Verified 01/06/23 18:33 - Social History Does the pt smoke?: No Smoking Status: Former smoker Does the pt drink ETOH?: No Does the pt have substance abuse?: No - Immunizations Immunizations are current?: Yes - POLST Patient has POLST: No PD ED PE NORMAL - Derm Derm: Other (Superficial skin tear on the palm of the left hand between the webbing of the small and ring fingers.) Results - Vitals Vitals: Vital Signs - 24 hr 01/06/23 18:33 Temperature 36.5 C Heart Rate 88 Respiratory 16 Rate Blood Pressure 127/60 O2 Saturation 96 Oxygen O2 Source Room air Procedures - Laceration (location) left hand Length in cm: 1 Wound type: Into subcut fat Neurovascular status: Sensory intact Tendon involvement: Tendon intact Wound preparation: Irrigated copiously NS Skin layer closure: Dermabond Other: Tetanus UTD PD Medical Decision Making - ED course Complexity details: d/w patient ED course: Superficial palmar lac on the left hand between the small and ring fingers easily closed with Dermabond. Routine wound care usual emergent return precautions for concerns of infection was discussed. Departure - Departure Disposition: Home, Self Care Clinical Impression: Laceration of left hand Qualifiers: Encounter type: initial encounter Foreign body presence: without foreign body Qualified Code(s): S61.412A - Laceration without foreign body of left hand, initial encounter Condition: Stable Record reviewed to determine appropriate education?: Yes Instructions: ED Laceration Ext Skin Glue Comments: The laceration on your palm is rather superficial and should heal well with time. We gently closed it with glue. No specific care is required for this. Avoid placing antibiotic ointment on it as well because the glue to wear away faster. I expect that your hand will be generally sore over the next several days but should slowly improve. Return to the ER if you have any concerns of infection, fevers, redness or worsening pain.
== END 2023-01-06 19:49 | disposition home or self-care (01) ==
LOC: ED 18:21
DX: S61.412A Laceration without foreign body of left hand, initial encounter (principal); W01.118A Fall on same level from slipping, tripping and stumbling with subsequent striking against other sharp object, initial encounter; Y92.007 Garden or yard of unspecified non-institutional (private) residence as the place of occurrence of the external cause; Z87.891 Personal history of nicotine dependence
CPT/HCPCS: 12001; 99281

== ENCOUNTER 2023-04-10 13:29 | Outpatient (CLI) | payer MEDICARE, OTHER ==
--- NOTE | 2023-04-11 15:14 | Mammography Report ---
BILATERAL DIGITAL SCREENING MAMMOGRAM 3D/2D: 04/10/2023 CLINICAL: Routine screening. Comparison is made to exams dated: 02/07/2022 mammogram - [facility], 02/19/2022 ster eotactic biopsy - [facility], 01/18/2022 mammogram, 10/18/2020 mammogram, 07/21/2019 mammogr am, and 04/16/2018 mammogram - [facility]. There are scattered areas of fibroglandular density in both breasts (category b / 25%-50% glandular t issue). There are benign calcifications in the left breast. There also is a biopsy clip in the left breast. No significant masses, calcifications, or other findings are seen in either breast. IMPRESSION: BENIGN There is no mammographic evidence of malignancy. A 1 year screening mammogram is recommended. Based on the Tyrer Cuzick model (a risk assessment model) the patients lifetime risk is 1.0% and her 10 year risk is 0.0%. According to the ACR, ACS, and NCCN guidelines, an annual breast MRI exam gabe g with mammogram is recommended if the patients lifetime risk is 20% or greater. This exam was interpreted at Station ID: [id number]. NOTE: For mammograms, a report in lay terms will be sent to the patient. Approximately 15% of breast malignancies will not be visualized mammographically. In the management of a palpable breast mass, a negative mammogram must not discourage biopsy of a clinically suspicious lesion. Electronically Signed By: Jeremy Rendon M.D. aty/:04/10/2023 15:33:02 letter sent: No_Letter ACR BI-RADS Category 2: Benign Finding(s) 3342F PARENCHYMAL PATTERN: (A) - The breast(s) demonstrate(s) scattered fibroglandular densities. BI-RADS CATEGORY: (2) - 2 Mammogram [id number] 1 year screening LATERALITY: (B)
== END 2023-04-10 13:30 | disposition home or self-care (01) ==
LOC: DI 13:29
DX: Z12.31 Encounter for screening mammogram for malignant neoplasm of breast (principal); R92.323 Mammographic fibroglandular density, bilateral breasts

== ENCOUNTER 2023-04-14 11:33 | Emergency (ER) | payer MEDICARE, OTHER ==
[2023-04-14 11:52] VITALS: BP 115/51; O2SAT 100
[2023-04-14] MEDS ORDERED: BACITRACIN ZINC OINT 1 PACKET TOP STA (12:12)
--- NOTE | 2023-04-14 12:14 | ED Physician Documentation ---
History of Present Illness - Stated complaint Stated Complaint: RT FINGER LAC - Chief complaint Chief Complaint: Laceration - Additonal information Additional information: She is here with some abrasions and skin tears between the digits of her third fourth and fifth fingers of her right hand that were sustained last night when she was helping get her out of a car and onto a walker. Because she is on Eliquis she has had a difficult time getting these wounds to stop bleeding. Every time she pulls the gauze away it rebleeds. Last tetanus was in August 2021. 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 : None HEENT: Chronic vision loss, Chronic sinusitis Psych: None Musculoskeletal: Osteoarthritis, Osteoporosis Derm: None - Past Surgical History Past Surgical History: Yes General: Cholecystectomy, Colonoscopy Ortho: Arthroscopic surgery, Carpal Tunnel surgery /CAN BANDER OPERATOR: Hysterectomy Cardiovascular: CABG, Pacemaker, Other HEENT: Cataracts, Tonsil/Adenoidectomy - Present Medications Home Medications: Ambulatory Orders Medication Instructions Recorded Confirmed Simvastatin [Zocor] 20 mg PO QPM 01/29/13 12/13/22 Albuterol Sulf [Ventolin Hfa 2 puffs INH Q4H PRN 06/04/16 12/13/22 Inhaler] Cetirizine [ZyrTEC] 10 mg PO DAILY PRN 06/04/16 12/13/22 Fluticasone [Flonase] 1 spray MACARIO BID PRN 06/04/16 12/13/22 Ipratropium/Albuterol [Duoneb] 3 ml INH Q4H PRN 06/04/16 12/13/22 Tolterodine [Detrol LA] 4 mg PO DAILY 01/16/19 12/13/22 amLODIPine [Norvasc] 5 mg PO ONCE 01/16/19 12/13/22 Cholecalciferol (Vitamin D3) 2,000 unit PO DAILY 05/09/22 12/13/22 [Vitamin D3] Fluticasone/Salmeterol [Advair 1 inh PO BID 05/09/22 12/13/22 250-50 Diskus] Furosemide [Lasix] 20 mg PO DAILY 05/09/22 12/13/22 Levothyroxine Sodium 50 mcg PO DAILY 05/09/22 12/13/22 Losartan [Cozaar] 50 mg PO DAILY 05/09/22 12/13/22 Montelukast [Singulair] 10 mg PO QPM 05/09/22 12/13/22 Potassium Chloride [Klor-Con 10] 10 meq PO DAILY 05/09/22 12/13/22 Spironolactone [Aldactone] 25 mg PO DAILY 05/09/22 12/13/22 carvediloL [Coreg] 25 mg PO BID 05/09/22 12/13/22 Acetaminophen [Tylenol] 500 mg PO Q4-6H PRN 09/10/22 12/13/22 Apixaban [Eliquis] 5 mg PO BID 09/10/22 12/13/22 Cyanocobalamin (Vitamin B-12) 1,000 mcg PO DAILY 09/10/22 12/13/22 [Vitamin B-12] - Allergies Allergies/Adverse Reactions: Allergies Allergy/AdvReac Type Severity Reaction Status Date / Time lidocaine Allergy Severe Dizziness Verified 04/14/23 11:43 - Social History Does the pt smoke?: No Smoking Status: Never smoker Does the pt drink ETOH?: No Does the pt have substance abuse?: No - Immunizations Immunizations are current?: Yes - POLST Patient has POLST: No PD ED PE EXPANDED - Extremities Extremities: Right hand (Skin tears and deeper abrasion on the radial side right fifth small finger as well as the ulnar side fourth ring finger. Swelling of the fifth finger between MCP and PIP joint. Neurovascularly intact.) Results - Vitals Vitals: Vital Signs - 24 hr 04/14/23 11:37 Temperature 36.7 C Heart Rate 81 Respiratory 16 Rate Blood Pressure 115/51 L O2 Saturation 100 Oxygen O2 Source Room air - Rads (name of study) right hand xr Relevant Findings:: Final report received (No acute fracture or osseous lesion) PD Medical Decision Making - ED course Complexity details: d/w patient ED course: 77-year-old female who is right-hand dominant has up-to-date tetanus presents to the emergency department for evaluation of skin tears between the digits of her third fourth and fifth finger sustained when helping her get into her walker yesterday. The skin tears are not amenable to primary closure. Because she is on Eliquis she has had difficult time achieving hemostasis. However at the time of my exam there is no active bleeding. The wounds were carefully cleansed, antibiotic ointment and then nonstick Adaptic applied as well as bandages. X-ray of the hand is interpreted by the radiologist showed no acute fracture. She is discharged home in stable condition with routine wound care discussed. Tetanus is up-to-date. Departure - Departure Disposition: Home, Self Care Clinical Impression: Skin tear Hand contusion Qualifiers: Encounter type: initial encounter Laterality: right Qualified Code(s): S60.221A - Contusion of right hand, initial encounter Condition: Stable Record reviewed to determine appropriate education?: Yes Comments: Joanne the x-ray of your hand does not show broken bone. The skin tears you sustained yesterday are something that will simply have to heal over time. Because you are on Eliquis you have had a hard time getting the bleeding to stop. I encourage you to gently wash these wounds with warm soap and water each day, pat dry then apply a generous layer of antibiotic ointment and a nonstick bandages given to you. I expect that will take 1 to 2 weeks for these to heal. Return to the ER if you have any concerns of uncontrolled bleeding or infection. Forms: PCP List
--- NOTE | 2023-04-14 12:58 | XRAY Report ---
PROCEDURE: Hand 3 View RT INDICATIONS: crush injury; r/o fx 5th metacarpal TECHNIQUE: 3 views of the hand(s) acquired. COMPARISON: 12/13/2022 FINDINGS: Bones: Scattered degenerative changes, particularly in the second and third the IP's and the base of the thumb. No displaced fracture is apparent. Soft tissues: No suspicious calcifications. IMPRESSION: No acute radiographic abnormality. Scattered degenerative changes. Reviewed by: Syed Urrutia MD on 04/14/2023 12:57 PM [facility] Approved by: Syed Urrutia MD on 04/14/2023 12:57 PM [facility] Station ID: [id number]
== END 2023-04-14 13:21 | disposition home or self-care (01) ==
LOC: ED 11:33
DX: S61.216A Laceration without foreign body of right little finger without damage to nail, initial encounter (principal); S61.214A Laceration without foreign body of right ring finger without damage to nail, initial encounter; S60.221A Contusion of right hand, initial encounter; X58.XXXA Exposure to other specified factors, initial encounter; Y92.810 Car as the place of occurrence of the external cause; I11.0 Hypertensive heart disease with heart failure; I50.9 Heart failure, unspecified; E78.00 Pure hypercholesterolemia, unspecified; I25.10 Atherosclerotic heart disease of native coronary artery without angina pectoris; I48.91 Unspecified atrial fibrillation; I25.2 Old myocardial infarction; J44.9 Chronic obstructive pulmonary disease, unspecified; E03.9 Hypothyroidism, unspecified; Z79.899 Other long term (current) drug therapy; Z79.01 Long term (current) use of anticoagulants
CPT/HCPCS: 73130; 99283; A9270

== ENCOUNTER 2023-05-14 09:34 | Outpatient (CLI) | payer MEDICARE, OTHER ==
[2023-05-14 09:48] LABS: BASOPHILS # (AUTO) 0.1 10^3/uL (0.0-0.1); BASOPHILS % (AUTO) 0.8 %; EOSINOPHILS # (AUTO) 0.2 10^3/uL (0.0-0.7); EOSINOPHILS % (AUTO) 2.5 %; HCT - HEMATOCRIT 39.7 % (37.0-47.0); HGB - HEMOGLOBIN 12.3 g/dL (12.0-16.0); LYMPHOCYTES # (AUTO) 1.2 10^3/uL (1.5-3.5); LYMPHOCYTES % (AUTO) 18.8 %; MEAN CORPUSCULAR HEMOGLOBIN 28.1 pg (27.0-31.0); MEAN CORPUSCULAR VOLUME 90.6 fL (81.0-99.0); MEAN PLATELET VOLUME 9.6 fL (7.9-10.8); MONOCYTES # (AUTO) 0.6 10^3/uL (0.0-1.0); MONOCYTES % (AUTO) 9.8 %; NEUTROPHILS # (AUTO) 4.4 10^3/uL (1.5-6.6); NEUTROPHILS % (AUTO) 67.9 %; PLT - PLATELET COUNT 233 10^3/uL (130-450); RED BLOOD COUNT 4.38 10^6/uL (4.20-5.40); RED CELL DISTRIBUTION WIDTH 11.7 % (12.0-15.0); WHITE BLOOD COUNT 6.5 x10^3/uL (4.8-10.8)
[2023-05-14 10:03] LABS: ALBUMIN 4.6 g/dL (3.2-5.5); ALKALINE PHOSPHATASE 79 IU/L (42-121); ALT ALANINE AMINOTRANSFERASE 12 IU/L (10-60); AST ASPARTATE AMINOTRANSFERASE 17 IU/L (10-42); BILIRUBIN,TOTAL 0.8 mg/dL (0.2-1.0); BUN - BLOOD UREA NITROGEN 17 mg/dL (6-20); CALCIUM 9.7 mg/dL (8.5-10.3); CARBON DIOXIDE - CO2 29 mmol/L (21-32); CHLORIDE 98 mmol/L (101-111); CHOL/HDL RATIO 2.3 (<4.4); CHOLESTEROL 129 mg/dL; CREATININE 0.8 mg/dL (0.6-1.3); GFR - MDRD 69 (>89); GLUCOSE 86 mg/dL (74-104); HDL CHOLESTEROL 57 mg/dL; LDL CHOLESTEROL,CALCULATED 58 mg/dL; POTASSIUM 4.1 mmol/L (3.5-4.5); SODIUM 133 mmol/L (135-145); TOTAL PROTEIN 6.9 g/dL (6.4-8.9); TRIGLYCERIDES 72 mg/dL (48-352); VLDL CHOLESTEROL 14 mg/dL
== END 2023-05-14 09:35 | disposition home or self-care (01) ==
LOC: LAB 09:34
PROVIDERS: ATTEND Physician Assistant Medical
DX: E78.5 Hyperlipidemia, unspecified (principal); E53.8 Deficiency of other specified B group vitamins; E03.9 Hypothyroidism, unspecified
CPT/HCPCS: 36415; 80053; 80061; 82607; 83721; 84443; 85025

== ENCOUNTER 2023-11-12 11:04 | Outpatient (CLI) | payer MEDICARE, OTHER ==
[2023-11-12 11:38] LABS: ALBUMIN 4.4 g/dL (3.2-5.5); ALBUMIN/GLOBULIN RATIO 2.2 (1.0-2.2); ALKALINE PHOSPHATASE 69 IU/L (42-121); ALT ALANINE AMINOTRANSFERASE 10 IU/L (10-60); AST ASPARTATE AMINOTRANSFERASE 16 IU/L (10-42); BILIRUBIN,TOTAL 0.8 mg/dL (0.2-1.0); BUN - BLOOD UREA NITROGEN 16 mg/dL (6-20); CALCIUM 9.7 mg/dL (8.5-10.3); CARBON DIOXIDE - CO2 28 mmol/L (21-32); CHLORIDE 100 mmol/L (101-111); CHOL/HDL RATIO 2.3 (<4.4); CHOLESTEROL 122 mg/dL; CREATININE 0.7 mg/dL (0.6-1.3); GFR - MDRD 81 (>89); GLUCOSE 92 mg/dL (74-104); HDL CHOLESTEROL 54 mg/dL; LDL CHOLESTEROL,CALCULATED 54 mg/dL; POTASSIUM 4.5 mmol/L (3.5-4.5); SODIUM 132 mmol/L (135-145); TOTAL PROTEIN 6.4 g/dL (6.4-8.9); TRIGLYCERIDES 68 mg/dL (48-352); VLDL CHOLESTEROL 14 mg/dL
== END 2023-11-12 11:05 | disposition home or self-care (01) ==
LOC: LAB 11:04
PROVIDERS: ATTEND Physician Assistant Medical
DX: I25.10 Atherosclerotic heart disease of native coronary artery without angina pectoris (principal)
CPT/HCPCS: 36415; 80053; 80061; 83721